=== PATIENT | female | born 1955 | race Caucasian/White ===

== ENCOUNTER → 2017-10-15 | Outpatient (CLI) | payer BC | END | disposition home or self-care (01) | LOC: KCIC US 14:21 | DX: I73.9 Peripheral vascular disease, unspecified (principal); I10 Essential (primary) hypertension; I77.1 Stricture of artery | CPT/HCPCS: 93926 ==

== ENCOUNTER → 2017-11-05 | Outpatient (CLI) | payer BC ==
[2017-11-05] MEDS: REGADENOSON 0.4 MG/5 ML DISP.SYRIN. IV ×2 (10:56)
== END | disposition home or self-care (01) ==
LOC: NM 09:24
DX: I08.1 Rheumatic disorders of both mitral and tricuspid valves (principal); I27.20 Pulmonary hypertension, unspecified; R06.00 Dyspnea, unspecified; I10 Essential (primary) hypertension; Z87.891 Personal history of nicotine dependence
CPT/HCPCS: 78452; 93017; 93306; 96374; 96375; 96376; A9500; J2785

== ENCOUNTER 2017-11-12 06:31 | Observation (INO) | payer BC ==
[2017-11-12 07:03] LABS: HEMATOCRIT 44.7 % (36.0-47.0); HEMOGLOBIN 15.1 g/dL (12.0-15.5); MEAN CORPUSCULAR HEMOGLOBIN 31 pg (25-35); MEAN CORPUSCULAR HGB CONC 34 g/dL (31-37); MEAN CORPUSCULAR VOLUME 91 fL (79-100); PLATELET COUNT 139 x10^3/uL (140-400); RED BLOOD COUNT 4.92 x10^6/uL (3.50-5.40); RED CELL DISTRIBUTION WIDTH 14.2 % (11.5-14.5); WHITE BLOOD COUNT 7.4 x10^3/uL (4.0-11.0)
[2017-11-12] MEDS ORDERED: IODIXANOL 320 MG/ML 100 ML VIAL. (07:10)
[2017-11-12] MEDS ORDERED: LIDOCAINE 2% 20 ML VIAL. (07:10)
[2017-11-12 07:17] LABS: INR 1.2 (0.8-1.1); PROTHROMBIN TIME PATIENT 14.4 SEC (11.7-14.0)
[2017-11-12 07:22] LABS: ANION GAP 6 (6-14); BLOOD UREA NITROGEN 15 mg/dL (7-20); CALCIUM 9.4 mg/dL (8.5-10.1); CARBON DIOXIDE 34 mmol/L (21-32); CHLORIDE 99 mmol/L (98-107); CREATININE 0.9 mg/dL (0.6-1.0); GFR 63.7; GLUCOSE 107 mg/dL (70-99); POTASSIUM 4.1 mmol/L (3.5-5.1); SODIUM 139 mmol/L (136-145)
[2017-11-12] MEDS ORDERED: fentaNYL PF VIAL 100 MCG/2 ML VIAL ×2 (08:04→09:15)
[2017-11-12] MEDS ORDERED: MIDAZOLAM HCL/PF 2 MG/2 ML VIAL. ×2 (08:04→09:15)
[2017-11-12] MEDS: IODIXANOL 320 MG/ML 100 ML VIAL. IART (08:30)
[2017-11-12] MEDS: MIDAZOLAM HCL/PF 5 MG/5 ML VIAL. IV (08:30)
[2017-11-12] MEDS ORDERED: CONTRAST GIVEN MC (08:30)
[2017-11-12] MEDS ORDERED: HEPARIN for IV BOLUS 10,000 UNIT/10 ML VIAL. ×2 (08:45→08:48)
[2017-11-12] MEDS ORDERED: dilTIAZem IV PUSH 25 MG/5 ML VIAL (08:48)
[2017-11-12] MEDS ORDERED: NITROGLYCERIN 4 MG/20 ML SYRINGE for CATH LAB. ×2 (08:48→09:00)
[2017-11-12] MEDS ORDERED: HEPARIN 25,000UTS/500ML PREMIX 500 ML IV (10:15)
[2017-11-12] MEDS ORDERED: NITROGLYCERIN PREMIX 250 ML IV (10:15)
[2017-11-12] MEDS ORDERED: NITROGLYCERIN 200 MCG/2 ML SYRINGE FOR CATH/VASC LAB. (10:28)
[2017-11-12] MEDS: LIDOCAINE 2% 20 ML VIAL. IJ (10:36)
[2017-11-12] MEDS: fentaNYL PF VIAL 100 MCG/2 ML VIAL IV (10:37)
[2017-11-12] MEDS: NITROGLYCERIN 200 MCG/2 ML SYRINGE FOR CATH/VASC LAB. IART (10:38)
[2017-11-12] MEDS: HEPARIN for IV BOLUS 10,000 UNIT/10 ML VIAL. IV (10:39)
[2017-11-12] MEDS: NITROGLYCERIN PREMIX 250 ML IV (10:45)
[2017-11-12] MEDS: HEPARIN 25,000UTS/500ML PREMIX 500 ML IV (10:46)
[2017-11-12] MEDS ORDERED: NITROGLYCERIN SUBLINGUAL 0.4 MG BOTTLE OF 25. SL (11:15)
[2017-11-12] MEDS ORDERED: ACETAMINOPHEN 325 MG TABLET. PO (11:15)
[2017-11-12] MEDS: oxyCODONE ER 10 MG TAB.ER.12H PO ×2 (12:00→20:55)
[2017-11-12] MEDS: FUROSEMIDE 40 MG TABLET. PO (12:00)
[2017-11-12] MEDS: SPIRONOLACTONE 25 MG TABLET PO (12:00)
[2017-11-12] MEDS: oxyCODONE/APAP 5/325 1 TAB TABLET PO ×2 (12:05→17:10)
[2017-11-12] MEDS: IV 1/2 NORMAL SALINE 1,000 ML IV ×2 (12:05→22:40)
[2017-11-12] MEDS ORDERED: oxyCODONE/APAP 10/325 1 TAB TABLET PO (14:00)
[2017-11-12] MEDS: NICOTINE 14MG PATCH. TD (19:55)
[2017-11-12] MEDS: FLU VACC QS2017-18 (36MOS+)/PF 0.5 ML SYRINGE. VAX IM (20:58)
[2017-11-13 06:48] LABS: ANION GAP 9 (6-14); BLOOD UREA NITROGEN 12 mg/dL (7-20); CALCIUM 8.2 mg/dL (8.5-10.1); CARBON DIOXIDE 27 mmol/L (21-32); CHLORIDE 104 mmol/L (98-107); CREATININE 0.8 mg/dL (0.6-1.0); GFR 72.9; GLUCOSE 105 mg/dL (70-99); SODIUM 140 mmol/L (136-145)
[2017-11-13] MEDS: IV 1/2 NORMAL SALINE 1,000 ML IV (07:06)
[2017-11-13] MEDS: SPIRONOLACTONE 25 MG TABLET PO (08:45)
[2017-11-13] MEDS: FUROSEMIDE 40 MG TABLET. PO (08:45)
[2017-11-13] MEDS: oxyCODONE ER 10 MG TAB.ER.12H PO (08:47)
[2017-11-13] MEDS: NICOTINE 14MG PATCH. TD (10:29)
[2017-11-13] MEDS: CLOPIDOGREL BISULFATE 75 MG TABLET PO (11:40)
[2017-11-13 16:07] LABS: CHOLESTEROL 107 mg/dL (0-200); HDLC 44 mg/dL (40-60); LDLC 53 mg/dL (0-100); NON-HDL CHOLESTEROL 63 mg/dL (0-129); TRIGLYCERIDES 50 mg/dL (0-150); VLDLC 10 mg/dL (0-40)
[2017-11-13 16:10] LABS: CHOLESTEROL/HDL RATIO 2.4
== END 2017-11-13 12:00 | disposition home or self-care (01) ==
LOC: CCL 06:31 → 2 NORTH 09:53
DX: I73.9 Peripheral vascular disease, unspecified (principal); K74.60 Unspecified cirrhosis of liver; I10 Essential (primary) hypertension; Z91.041 Radiographic dye allergy status
CPT/HCPCS: 36415; 37225; 37228; 75630; 80048; 80061; 85027; 85610; 90471; 90686; 96365; 96366; 96367; 96368; 96375; 99152; 99153; C1724; C1725; C1769; C1771; C1887; C1892; C2623; G0269; G0378; G0379; J1644; J2250; J3010; J3490; J7030

== ENCOUNTER 2017-11-20 23:17 | Inpatient (IN) | payer BC, MEDICARE ==
[2017-11-20 23:59] LABS: ADD MAN DIFF? NO
[2017-11-21 00:03] LABS: BILIRUBIN,URINE NEGATIVE (NEG); CLARITY,URINE CLOUDY; COLOR,URINE YELLOW; GLUCOSE,URINE NEGATIVE (NEG); NITRITE,URINE POSITIVE (NEG); PH,URINE 6.5; PROTEIN,URINE NEGATIVE (NEG-TRACE)
[2017-11-21 00:05] LABS: BASO % 0 % (0-3); EOS # 0.1 x10^3/uL (0.0-0.7); EOS % 1 % (0-3); HEMATOCRIT 36.9 % (36.0-47.0); HEMOGLOBIN 12.8 g/dL (12.0-15.5); LYMPH # 1.2 x10^3/uL (1.0-4.8); LYMPH % 18 % (24-48); MEAN CORPUSCULAR HEMOGLOBIN 31 pg (25-35); MEAN CORPUSCULAR HGB CONC 35 g/dL (31-37); MEAN CORPUSCULAR VOLUME 89 fL (79-100); MONO # 0.7 x10^3/uL (0.0-1.1); MONO % 10 % (0-9); NEUT # 4.5 x10^3uL (1.8-7.7); NEUT % 70 % (31-73); PLATELET COUNT 131 x10^3/uL (140-400); RED BLOOD COUNT 4.17 x10^6/uL (3.50-5.40); WHITE BLOOD COUNT 6.4 x10^3/uL (4.0-11.0)
[2017-11-21 00:13] LABS: ANION GAP 9 (6-14); BLOOD UREA NITROGEN 13 mg/dL (7-20); BUN/CREATININE RATIO 12 (6-20); CALCIUM 8.7 mg/dL (8.5-10.1); CARBON DIOXIDE 28 mmol/L (21-32); CHLORIDE 101 mmol/L (98-107); CREATININE 1.1 mg/dL (0.6-1.0); GFR 50.5; GLUCOSE 111 mg/dL (70-99); POTASSIUM 3.3 mmol/L (3.5-5.1); SODIUM 138 mmol/L (136-145)
[2017-11-21 00:15] LABS: BACTERIA,URINE MANY /HPF (0-FEW); SQUAMOUS EPITHELIAL CELL,UR OCC /LPF; WBC,URINE TNTC /HPF (0-4)
[2017-11-21 00:19] LABS: ALBUMIN 3.1 g/dL (3.4-5.0); ALBUMIN/GLOBULIN RATIO 0.6 (1.0-1.7); ALK PHOS 57 U/L (46-116); ALT (SGPT) 14 U/L (14-59); AST (SGOT) 23 U/L (15-37); TOTAL BILIRUBIN 1.7 mg/dL (0.2-1.0); TOTAL PROTEIN 8.2 g/dL (6.4-8.2)
[2017-11-21 00:22] LABS: TROPONINI < 0.017 ng/mL (0.000-0.055)
[2017-11-21 00:24] LABS: D-DIMER 1.98 ug/mlFEU (0.00-0.50)
[2017-11-21 00:28] LABS: NT-PRO BNP 427 pg/mL (0-124)
[2017-11-21 00:28] LABS: CKMB MASS 0.5 ng/mL (0.0-3.6); CREATINE KINASE 37 U/L (26-192)
[2017-11-21] MEDS: IV NORMAL SALINE 1000ML BAG 1,000 ML IV ×4 (00:35→20:38)
[2017-11-21] MEDS: methylPREDNISolone SOD SUCC PF 125 MG/2 ML VIAL. IV ×3 (00:36→20:37)
[2017-11-21] MEDS: cefTRIAXone IV Push 1 GM VIAL. IVP (00:48)
[2017-11-21 00:53] LABS: INFLUENZA A PATIENT NEGATIVE (NEGATIVE); INFLUENZA B PATIENT NEGATIVE (NEGATIVE); OBC FLU VALID
[2017-11-21] MEDS: IOHEXOL 300 MG/ML 100ML VIAL. IV (01:00)
[2017-11-21] MEDS ORDERED: CONTRAST GIVEN MC (01:00)
[2017-11-21] MEDS ORDERED: ONDANSETRON PF 4 MG/2 ML VIAL. IV (02:15)
[2017-11-21] MEDS: NICOTINE 21MG PATCH. TD (05:31)
[2017-11-21] MEDS: AZITHRMYCN 500MG IVPB FOR OMNI 250 ML IV (05:32)
[2017-11-21] MEDS: methylPREDNISolone SOD SUCC PF 40 MG/ML VIAL. IV (05:33)
[2017-11-21] MEDS: IPRATRPIUM/ALBUTEROL 0.5/2.5MG 3 ML NEBU. NEB ×6 (07:48→19:40)
[2017-11-21] MEDS: ACETAMINOPHEN 325 MG TABLET. PO (08:06)
[2017-11-21] MEDS: LACTOBACILLUS RHAMNOSUS GG 1 CAPSULE. PO ×2 (08:06→20:36)
[2017-11-21] MEDS: PNEUMOC CONJ VACC 23-VALENT 0.5 ML VIAL. VAX IM (08:09)
[2017-11-21] MEDS ORDERED: PNEUMOCOCCAL VAX SCREEN BY RX. MC (09:00)
[2017-11-21] MEDS ORDERED: ONDANSETRON ODT 4 MG TAB.RAPDIS. PO (10:00)
[2017-11-21] MEDS ORDERED: PIP/TAZO PER PHARMACY MC (10:30)
[2017-11-21] MEDS: FUROSEMIDE 40 MG TABLET. PO (10:41)
[2017-11-21] MEDS: oxyCODONE ER 10 MG TAB.ER.12H PO ×2 (10:41→20:36)
[2017-11-21] MEDS: ENOXAPARIN 40 MG/0.4 ML SYRINGE. SQ (10:42)
[2017-11-21] MEDS: CLOPIDOGREL BISULFATE 75 MG TABLET PO (10:42)
[2017-11-21] MEDS: METOPROLOL TART IMMED RELEASE 50 MG TABLET. PO ×2 (10:43→20:36)
[2017-11-21] MEDS: oxyCODONE/APAP 10/325 1 TAB TABLET PO ×3 (10:43→20:36)
[2017-11-21] MEDS: SPIRONOLACTONE 25 MG TABLET PO (10:43)
[2017-11-21] MEDS: VANCOMYCIN 1.75 GM in IV DEXTROSE 5% 500 ML IV (11:42)
[2017-11-21] MEDS: PIPERACILLN-TAZO 4.5GM PREMIX 100 ML IV ×2 (11:42→17:01)
[2017-11-21] MEDS: BUDESONIDE 0.5 MG/2 ML NEBU. NEB ×2 (12:03→19:40)
[2017-11-21] MEDS: VANCOMYCIN PER PHARMACY MC (14:41)
[2017-11-21] MEDS: ZOLPIDEM 5 MG TABLET. PO (20:35)
[2017-11-21] MEDS: LACTULOSE 20 GM/30 ML SOLUTION. PO (20:37)
[2017-11-21] MEDS ORDERED: cefTRIAXone IV Push 1 GM VIAL. IVP (23:00)
[2017-11-22] MEDS: PIPERACILLN-TAZO 4.5GM PREMIX 100 ML IV ×4 (00:09→18:23)
[2017-11-22 04:58] LABS: ADD MAN DIFF? NO
[2017-11-22 05:00] LABS: BASO % 0 % (0-3); EOS % 0 % (0-3); HEMATOCRIT 30.6 % (36.0-47.0); HEMOGLOBIN 10.6 g/dL (12.0-15.5); LYMPH # 0.4 x10^3/uL (1.0-4.8); LYMPH % 11 % (24-48); MEAN CORPUSCULAR HEMOGLOBIN 31 pg (25-35); MEAN CORPUSCULAR HGB CONC 35 g/dL (31-37); MEAN CORPUSCULAR VOLUME 88 fL (79-100); MONO # 0.2 x10^3/uL (0.0-1.1); MONO % 5 % (0-9); NEUT # 3.2 x10^3uL (1.8-7.7); NEUT % 84 % (31-73); PLATELET COUNT 86 x10^3/uL (140-400); RED BLOOD COUNT 3.48 x10^6/uL (3.50-5.40); RED CELL DISTRIBUTION WIDTH 14.2 % (11.5-14.5); WHITE BLOOD COUNT 3.8 x10^3/uL (4.0-11.0)
[2017-11-22] MEDS ORDERED: AZITHROMYCIN 500 MG in IV NORMAL SALINE 250ML 250 ML IV (05:00)
[2017-11-22 05:18] LABS: ANION GAP 10 (6-14); BLOOD UREA NITROGEN 13 mg/dL (7-20); CALCIUM 8.2 mg/dL (8.5-10.1); CARBON DIOXIDE 24 mmol/L (21-32); CHLORIDE 108 mmol/L (98-107); GFR 56.4; GLUCOSE 145 mg/dL (70-99); SODIUM 142 mmol/L (136-145)
[2017-11-22] MEDS: VANCOMYCIN 1 GM in IV 1/2 NORMAL SALINE 250 ML IV (05:40)
[2017-11-22] MEDS: IPRATRPIUM/ALBUTEROL 0.5/2.5MG 3 ML NEBU. NEB ×4 (07:18→20:24)
[2017-11-22] MEDS: BUDESONIDE 0.5 MG/2 ML NEBU. NEB ×2 (07:18→20:24)
[2017-11-22] MEDS: methylPREDNISolone SOD SUCC PF 125 MG/2 ML VIAL. IV (08:52)
[2017-11-22] MEDS: oxyCODONE ER 10 MG TAB.ER.12H PO ×2 (08:53→20:42)
[2017-11-22] MEDS: METOPROLOL TART IMMED RELEASE 50 MG TABLET. PO ×2 (08:53→20:45)
[2017-11-22] MEDS: oxyCODONE/APAP 10/325 1 TAB TABLET PO ×3 (08:53→20:42)
[2017-11-22] MEDS: CLOPIDOGREL BISULFATE 75 MG TABLET PO (08:53)
[2017-11-22] MEDS: FUROSEMIDE 40 MG TABLET. PO (08:54)
[2017-11-22] MEDS: SPIRONOLACTONE 25 MG TABLET PO (08:54)
[2017-11-22] MEDS: LACTOBACILLUS RHAMNOSUS GG 1 CAPSULE. PO ×2 (08:54→20:41)
[2017-11-22] MEDS: ENOXAPARIN 40 MG/0.4 ML SYRINGE. SQ (08:54)
[2017-11-22] MEDS: NICOTINE 21MG PATCH. TD (08:54)
[2017-11-22] MEDS ORDERED: AZITHROMYCIN 250 MG TABLET. PO (09:00)
[2017-11-22] MEDS: POTASSIUM CHLORIDE 20 MEQ TABLET.ER. PO (13:17)
[2017-11-22] MEDS: VANCOMYCIN PER PHARMACY MC (13:31)
[2017-11-22] MEDS: methylPREDNISolone SOD SUCC PF 40 MG/ML VIAL. IV (20:41)
[2017-11-22] MEDS: ZOLPIDEM 5 MG TABLET. PO (20:57)
[2017-11-22] MEDS: LACTULOSE 20 GM/30 ML SOLUTION. PO (20:58)
[2017-11-23] MEDS: PIPERACILLN-TAZO 4.5GM PREMIX 100 ML IV ×3 (00:03→06:36)
[2017-11-23] MEDS: VANCOMYCIN PER PHARMACY MC (00:38)
[2017-11-23] MEDS: VANCOMYCIN 1 GM in IV 1/2 NORMAL SALINE 250 ML IV (01:20)
[2017-11-23 04:55] LABS: ADD MAN DIFF? NO
[2017-11-23 05:01] LABS: BASO % 0 % (0-3); EOS % 0 % (0-3); HEMATOCRIT 31.9 % (36.0-47.0); HEMOGLOBIN 10.9 g/dL (12.0-15.5); LYMPH # 0.5 x10^3/uL (1.0-4.8); LYMPH % 12 % (24-48); MEAN CORPUSCULAR HEMOGLOBIN 31 pg (25-35); MEAN CORPUSCULAR HGB CONC 34 g/dL (31-37); MEAN CORPUSCULAR VOLUME 89 fL (79-100); MONO # 0.2 x10^3/uL (0.0-1.1); MONO % 5 % (0-9); NEUT # 3.1 x10^3uL (1.8-7.7); NEUT % 82 % (31-73); PLATELET COUNT 91 x10^3/uL (140-400); RED BLOOD COUNT 3.58 x10^6/uL (3.50-5.40); WHITE BLOOD COUNT 3.7 x10^3/uL (4.0-11.0)
[2017-11-23 05:40] LABS: ALBUMIN 2.6 g/dL (3.4-5.0); ALBUMIN/GLOBULIN RATIO 0.6 (1.0-1.7); ALK PHOS 41 U/L (46-116); ALT (SGPT) 14 U/L (14-59); ANION GAP 9 (6-14); AST (SGOT) 18 U/L (15-37); BLOOD UREA NITROGEN 15 mg/dL (7-20); BUN/CREATININE RATIO 14 (6-20); CALCIUM 8.3 mg/dL (8.5-10.1); CARBON DIOXIDE 24 mmol/L (21-32); CHLORIDE 107 mmol/L (98-107); CREATININE 1.1 mg/dL (0.6-1.0); GFR 50.5; GLUCOSE 126 mg/dL (70-99); POTASSIUM 3.3 mmol/L (3.5-5.1); SODIUM 140 mmol/L (136-145); TOTAL BILIRUBIN 0.8 mg/dL (0.2-1.0); TOTAL PROTEIN 6.8 g/dL (6.4-8.2)
[2017-11-23] MEDS: BUDESONIDE 0.5 MG/2 ML NEBU. NEB ×3 (07:48→19:22)
[2017-11-23] MEDS: IPRATRPIUM/ALBUTEROL 0.5/2.5MG 3 ML NEBU. NEB ×5 (07:49→19:22)
[2017-11-23] MEDS: NICOTINE 21MG PATCH. TD (08:55)
[2017-11-23] MEDS: LACTOBACILLUS RHAMNOSUS GG 1 CAPSULE. PO ×2 (08:55→20:32)
[2017-11-23] MEDS: oxyCODONE ER 10 MG TAB.ER.12H PO ×2 (08:56→20:32)
[2017-11-23] MEDS: ENOXAPARIN 40 MG/0.4 ML SYRINGE. SQ (08:56)
[2017-11-23] MEDS: SPIRONOLACTONE 25 MG TABLET PO (08:57)
[2017-11-23] MEDS: methylPREDNISolone SOD SUCC PF 40 MG/ML VIAL. IV (08:57)
[2017-11-23] MEDS: CLOPIDOGREL BISULFATE 75 MG TABLET PO (08:57)
[2017-11-23] MEDS: oxyCODONE/APAP 10/325 1 TAB TABLET PO ×3 (08:57→20:32)
[2017-11-23] MEDS: METOPROLOL TART IMMED RELEASE 50 MG TABLET. PO ×2 (08:57→20:32)
[2017-11-23] MEDS: FUROSEMIDE 40 MG TABLET. PO (08:57)
[2017-11-23] MEDS: POTASSIUM CHLORIDE 20 MEQ TABLET.ER. PO ×2 (08:58→12:06)
[2017-11-23] MEDS: AMOXICILLIN/K CLAV 875/125MG TABLET. PO ×2 (12:06→20:32)
[2017-11-23] MEDS: predniSONE 20 MG TABLET PO (12:06)
[2017-11-23] MEDS: LACTULOSE 20 GM/30 ML SOLUTION. PO (20:32)
[2017-11-23] MEDS: ZOLPIDEM 5 MG TABLET. PO (20:37)
[2017-11-24] MEDS: BUDESONIDE 0.5 MG/2 ML NEBU. NEB (07:25)
[2017-11-24] MEDS: IPRATRPIUM/ALBUTEROL 0.5/2.5MG 3 ML NEBU. NEB (07:25)
[2017-11-24] MEDS: NICOTINE 21MG PATCH. TD (08:52)
[2017-11-24] MEDS: LACTOBACILLUS RHAMNOSUS GG 1 CAPSULE. PO (08:52)
[2017-11-24] MEDS: SPIRONOLACTONE 25 MG TABLET PO (08:52)
[2017-11-24] MEDS: METOPROLOL TART IMMED RELEASE 50 MG TABLET. PO (08:53)
[2017-11-24] MEDS: AMOXICILLIN/K CLAV 875/125MG TABLET. PO (08:53)
[2017-11-24] MEDS: predniSONE 20 MG TABLET PO (08:53)
[2017-11-24] MEDS: POTASSIUM CHLORIDE 20 MEQ TABLET.ER. PO (08:53)
[2017-11-24] MEDS: FUROSEMIDE 40 MG TABLET. PO (08:54)
[2017-11-24] MEDS: CLOPIDOGREL BISULFATE 75 MG TABLET PO (08:54)
[2017-11-24] MEDS: oxyCODONE ER 10 MG TAB.ER.12H PO (08:54)
[2017-11-24] MEDS: oxyCODONE/APAP 10/325 1 TAB TABLET PO (08:54)
[2017-11-24] MEDS: ENOXAPARIN 40 MG/0.4 ML SYRINGE. SQ (09:01)
== END 2017-11-24 11:00 | disposition home or self-care (01) | DRG 193 ==
LOC: ER 23:17 → 5 NORTH 11-21 01:55
DX: J18.9 Pneumonia, unspecified organism (principal); J96.01 Acute respiratory failure with hypoxia; J44.0 Chronic obstructive pulmonary disease with (acute) lower respiratory infection; E44.1 Mild protein-calorie malnutrition; K76.6 Portal hypertension; J44.1 Chronic obstructive pulmonary disease with (acute) exacerbation; N39.0 Urinary tract infection, site not specified; J20.9 Acute bronchitis, unspecified; F17.210 Nicotine dependence, cigarettes, uncomplicated; I10 Essential (primary) hypertension; I73.9 Peripheral vascular disease, unspecified; K21.9 Gastro-esophageal reflux disease without esophagitis; K74.60 Unspecified cirrhosis of liver; Z82.49 Family history of ischemic heart disease and other diseases of the circulatory system; Z90.49 Acquired absence of other specified parts of digestive tract; G89.29 Other chronic pain; M19.90 Unspecified osteoarthritis, unspecified site; Z98.51 Tubal ligation status; Z88.6 Allergy status to analgesic agent
CPT/HCPCS: 36415; 71045; 71275; 80048; 80053; 80202; 81001; 82553; 83735; 83880; 84484; 85025; 85379; 87086; 87186; 87804; 87804-59; 90732; 93005; 94640; 94760; 96361; 96374; 96375; 99285; 99285-25; J0456; J0696; J1650; J2920; J2930; J3370; J7030; J7512; J7620; J7626; Q9967

== ENCOUNTER → 2018-01-07 | Outpatient (CLI) | payer BC, MEDICARE | END | disposition home or self-care (01) | LOC: CT 14:59 | DX: J43.9 Emphysema, unspecified (principal); R91.1 Solitary pulmonary nodule; K76.6 Portal hypertension; K74.69 Other cirrhosis of liver; R16.1 Splenomegaly, not elsewhere classified | CPT/HCPCS: 71250 ==

== ENCOUNTER → 2018-01-14 | Day surgery (SDC) | payer BC, MEDICARE ==
[~2018-01-14] MED LIST: EPINEPHrine 1 MG/ML VIAL ET; LIDOCAINE 1% PF 2 ML VIAL. ID; MIDAZOLAM HCL/PF 2 MG/2 ML VIAL. IV; PROPOFOL 20 ML IV; fentaNYL PF VIAL 100 MCG/2 ML VIAL IV
[2018-01-14 12:37] LABS: HEMOGLOBIN 14.1 g/dL (12.0-15.5); PLATELET COUNT 106 x10^3/uL (140-400); WHITE BLOOD COUNT 6.1 x10^3/uL (4.0-11.0)
[2018-01-14] MEDS: ALBUTEROL SULFATE 2.5 MG/3 ML NEBU. NEB (12:38)
[2018-01-14] MEDS: IV RINGERS,LACTATED 1000ML 1,000 ML IV (12:40)
[2018-01-14 12:47] LABS: INR 1.2 (0.8-1.1); PROTHROMBIN TIME PATIENT 14.8 SEC (11.7-14.0)
== END | disposition home or self-care (01) ==
LOC: SURG 11:52
DX: J18.9 Pneumonia, unspecified organism (principal); Z79.01 Long term (current) use of anticoagulants
CPT/HCPCS: 31622; 31624; 36415; 85027; 85610; 87070; 87102; 87205; 88112; 94640; J0171; J2704; J7613

== ENCOUNTER 2018-04-09 10:33 | Observation (INO) | payer BC, MEDICARE ==
[~2018-04-09 10:33] MED LIST changes: -EPINEPHrine 1 MG/ML VIAL ET; -MIDAZOLAM HCL/PF 2 MG/2 ML VIAL. IV; +ONDANSETRON PF 4 MG/2 ML VIAL. IV; +PROCHLORPERAZINE 10 MG/2 ML VIAL. IV; -PROPOFOL 20 ML IV; -fentaNYL PF VIAL 100 MCG/2 ML VIAL IV
[2018-04-09] MEDS ORDERED: LIDOCAINE 2% PF Vial for OR 5 ML VIAL. (11:12)
[2018-04-09] MEDS ORDERED: FAMOTIDINE 20 MG/2 ML VIAL (11:12)
[2018-04-09] MEDS ORDERED: DEXAMETHASONE SOD PHOS 20 MG/5 ML VIAL. (11:12)
[2018-04-09] MEDS ORDERED: ONDANSETRON PF 4 MG/2 ML VIAL. (11:12)
[2018-04-09] MEDS ORDERED: PROPOFOL 20 ML IV (11:12)
[2018-04-09] MEDS: IV RINGERS,LACTATED 1000ML 1,000 ML IV (11:29)
[2018-04-09] MEDS ORDERED: MIDAZOLAM HCL/PF 2 MG/2 ML VIAL. ×2 (11:43→14:48)
[2018-04-09] MEDS ORDERED: ROCURONIUM 50 MG/5 ML VIAL. (11:43)
[2018-04-09] MEDS ORDERED: fentaNYL PF VIAL 100 MCG/2 ML VIAL (11:43)
[2018-04-09] MEDS: BUPIVACAINE-EPI 0.25%-1:200000 50 ML VIAL. (12:26)
[2018-04-09] MEDS ORDERED: NEOSTIGMINE METHYLSULFATE 5 MG/5 ML SYRINGE. (12:34)
[2018-04-09] MEDS ORDERED: GLYCOPYRROLATE 1 MG/5 ML VIAL. (12:34)
[2018-04-09] MEDS ORDERED: SEVOFLURANE > 120 MINUTES. IH (13:27)
[2018-04-09] MEDS ORDERED: SEVOFLURANE 61 TO 120 MINUTES. IH (13:27)
[2018-04-09] MEDS: fentaNYL PF VIAL 100 MCG/2 ML VIAL IV ×6 (13:52→14:35)
[2018-04-09] MEDS: IPRATRPIUM/ALBUTEROL 0.5/2.5MG 3 ML NEBU. NEB (14:13)
[2018-04-09] MEDS: MORPHINE SULFATE 2 MG/ML DISP.SYRIN. IV ×8 (14:41→21:23)
[2018-04-09] MEDS: MIDAZOLAM HCL/PF 2 MG/2 ML VIAL. IV (14:51)
[2018-04-09] MEDS ORDERED: oxyCODONE/APAP 5/325 1 TAB TABLET PO (15:30)
[2018-04-09] MEDS: oxyCODONE/APAP 5/325 1 TAB TABLET PO ×2 (15:43→20:30)
[2018-04-09] MEDS: NICOTINE 21MG PATCH. TD (20:29)
[2018-04-10] MEDS: oxyCODONE/APAP 5/325 1 TAB TABLET PO ×3 (01:36→10:14)
[2018-04-10] MEDS: MORPHINE SULFATE 2 MG/ML DISP.SYRIN. IV (03:09)
== END 2018-04-10 10:30 | disposition home or self-care (01) ==
LOC: SURG 10:33 → 4 NORTH 17:06
DX: K43.2 Incisional hernia without obstruction or gangrene (principal)
CPT/HCPCS: 49655; 96374; 96376; A7015; C1781; G0378; G0379; J0690; J1100; J2001; J2250; J2270; J2405; J2704; J2710; J3010; J3490; J7620; S0028

== ENCOUNTER 2018-04-11 23:39 | Emergency (ER) | payer BC, MEDICARE ==
[2018-04-12] MEDS: MORPHINE SULFATE 4 MG/ML DISP.SYRIN. IV (00:56)
[2018-04-12] MEDS: ONDANSETRON PF 4 MG/2 ML VIAL. IV (00:56)
[2018-04-12 01:25] LABS: ADD MAN DIFF? NO
[2018-04-12 01:29] LABS: BASO % 1 % (0-3); EOS # 0.2 x10^3/uL (0.0-0.7); EOS % 2 % (0-3); HEMATOCRIT 43.5 % (36.0-47.0); HEMOGLOBIN 15.1 g/dL (12.0-15.5); LYMPH # 1.5 x10^3/uL (1.0-4.8); LYMPH % 16 % (24-48); MEAN CORPUSCULAR HEMOGLOBIN 30 pg (25-35); MEAN CORPUSCULAR HGB CONC 35 g/dL (31-37); MEAN CORPUSCULAR VOLUME 88 fL (79-100); MONO % 10 % (0-9); NEUT # 6.9 x10^3uL (1.8-7.7); NEUT % 71 % (31-73); PLATELET COUNT 123 x10^3/uL (140-400); RED BLOOD COUNT 4.97 x10^6/uL (3.50-5.40); RED CELL DISTRIBUTION WIDTH 15.1 % (11.5-14.5); WHITE BLOOD COUNT 9.6 x10^3/uL (4.0-11.0)
[2018-04-12 01:39] LABS: ANION GAP 10 (6-14); BLOOD UREA NITROGEN 19 mg/dL (7-20); BUN/CREATININE RATIO 17 (6-20); CALCIUM 8.8 mg/dL (8.5-10.1); CARBON DIOXIDE 26 mmol/L (21-32); CHLORIDE 95 mmol/L (98-107); CREATININE 1.1 mg/dL (0.6-1.0); GFR 50.5; GLUCOSE 99 mg/dL (70-99); POTASSIUM 3.7 mmol/L (3.5-5.1); SODIUM 131 mmol/L (136-145)
[2018-04-12 01:45] LABS: ALBUMIN 3.5 g/dL (3.4-5.0); ALBUMIN/GLOBULIN RATIO 0.9 (1.0-1.7); ALK PHOS 84 U/L (46-116); ALT (SGPT) 14 U/L (14-59); AST (SGOT) 20 U/L (15-37); TOTAL BILIRUBIN 1.8 mg/dL (0.2-1.0); TOTAL PROTEIN 7.3 g/dL (6.4-8.2)
== END 2018-04-12 02:40 | disposition home or self-care (01) ==
LOC: ER 23:39
DX: M79.605 Pain in left leg (principal); I10 Essential (primary) hypertension; Z86.718 Personal history of other venous thrombosis and embolism; Z98.51 Tubal ligation status; Z90.49 Acquired absence of other specified parts of digestive tract; Z88.1 Allergy status to other antibiotic agents; Z88.6 Allergy status to analgesic agent; Z88.8 Allergy status to other drugs, medicaments and biological substances
CPT/HCPCS: 36415; 80053; 85025; 93971; 96374; 96375; 99285-25; J2270; J2405

== ENCOUNTER 2018-06-10 06:23 | Observation (INO) | payer BC ==
[~2018-06-10] VITALS: Ht 172.7 cm; Wt 57.7 kg
[2018-06-10] VITALS (15 sets, daily range): BP systolic 114–166; BP diastolic 52–82
[~2018-06-10 06:23] MED LIST changes: +AMOX1TAB11 PO; +CHOL20009 PO; +CLOP75TA PO; +FLUT12AE IH; +FURO40TA4 PO; +IPRA4AER IH; +LACT10SO35 PO; -LIDOCAINE 1% PF 2 ML VIAL. ID; +NADO40TA PO; +OMEP40CA5 PO; +ONDA8TAB9 PO; -ONDANSETRON PF 4 MG/2 ML VIAL. IV; +OXYC-328 PO; +OXYC20TA34 PO; +PRED-220 PO; -PROCHLORPERAZINE 10 MG/2 ML VIAL. IV; +SPIR25TA5 PO; +TRAM50TA PO
[2018-06-10] MEDS ORDERED: IODIXANOL 320 MG/ML 100 ML VIAL. ONE (07:10)
[2018-06-10] MEDS ORDERED: LIDOCAINE 1% PF 30 ML VIAL. ONE (07:10)
[2018-06-10 07:14] LABS: HEMATOCRIT 39.2 % (36.0-47.0); HEMOGLOBIN 13.5 g/dL (12.0-15.5); RED BLOOD COUNT 4.34 x10^6/uL (3.50-5.40); RED CELL DISTRIBUTION WIDTH 14.8 % (11.5-14.5); WHITE BLOOD COUNT 6.2 x10^3/uL (4.0-11.0)
[2018-06-10] MEDS ORDERED: SPIR25TA5 PO (07:17)
[2018-06-10] MEDS ORDERED: PENT400T4 PO (07:17)
[2018-06-10 07:24] LABS: CALCIUM 9.4 mg/dL (8.5-10.1); CREATININE 0.9 mg/dL (0.6-1.0); GFR 63.7; POTASSIUM 3.6 mmol/L (3.5-5.1)
[2018-06-10] MEDS ORDERED: MIDAZOLAM HCL/PF 5 MG/5 ML VIAL. ONE (07:55)
[2018-06-10] MEDS ORDERED: fentaNYL PF VIAL 250 MCG/5 ML VIAL ONE (07:55)
[2018-06-10] MEDS ORDERED: HEPARIN for IV BOLUS 10,000 UNIT/10 ML VIAL. ONE (08:16)
[2018-06-10] MEDS ORDERED: fentaNYL PF VIAL 250 MCG/5 ML VIAL IV ONE (08:30)
[2018-06-10] MEDS ORDERED: HEPARIN for IV BOLUS 10,000 UNIT/10 ML VIAL. IV ONE (08:30)
[2018-06-10] MEDS ORDERED: LIDOCAINE 1% PF 30 ML VIAL. INJ ONE (08:30)
[2018-06-10] MEDS ORDERED: MIDAZOLAM HCL/PF 5 MG/5 ML VIAL. IV ONE (08:30)
[2018-06-10] MEDS ORDERED: CONTRAST GIVEN. MC PRN (08:30)
[2018-06-10] MEDS ORDERED: IODIXANOL 320 MG/ML 100 ML VIAL. IART ONE (08:30)
[2018-06-10] MEDS ORDERED: NITROGLYCERIN 200 MCG/2 ML SYRINGE FOR CATH/VASC LAB. IART ONE (09:15)
[2018-06-10] MEDS ORDERED: CLOPIDOGREL BISULFATE 75 MG TABLET ONE (09:24)
[2018-06-10] MEDS ORDERED: NITROGLYCERIN 200 MCG/2 ML SYRINGE FOR CATH/VASC LAB. ONE ×3 (09:24→15:43)
[2018-06-10] MEDS ORDERED: CLOPIDOGREL BISULFATE 75 MG TABLET PO ONE (09:30)
[2018-06-10] MEDS ORDERED: VERAPAMIL 5 MG/2 ML VIAL. ONE (10:35)
[2018-06-10] MEDS ORDERED: fentaNYL PF VIAL 100 MCG/2 ML VIAL ONE (10:39)
[2018-06-10] MEDS ORDERED: MIDAZOLAM HCL/PF 2 MG/2 ML VIAL. ONE (10:43)
[2018-06-10] MEDS ORDERED: VERAPAMIL 5 MG/2 ML VIAL. IART ONE (10:45)
[2018-06-10] MEDS ORDERED: oxyCODONE/APAP 10/325 1 TAB TABLET PO PRN (10:45)
[2018-06-10] MEDS ORDERED: MIDAZOLAM HCL/PF 2 MG/2 ML VIAL. IV ONE (10:45)
[2018-06-10] MEDS ORDERED: fentaNYL PF VIAL 100 MCG/2 ML VIAL IV ONE (10:45)
[2018-06-10] MEDS ORDERED: HEPARIN 25,000UTS/500ML PREMIX 500 ML IV ONE (10:53)
[2018-06-10] MEDS ORDERED: HEPARIN 25,000UTS/500ML PREMIX 500 ML IV PRN (11:00)
[2018-06-10] MEDS ORDERED: ONDANSETRON ODT 4 MG TAB.RAPDIS. PO PRN (11:00)
[2018-06-10] MEDS ORDERED: HEPARIN for IV BOLUS 10,000 UNIT/10 ML VIAL. IV PRN (11:00)
--- NOTE | 2018-06-10 11:05 | PDOC ---
MODERATE SEDATION ASSESSMENT RISKS/ALTERNATIVES Risks/Alternatives Risks and alternatives of this type of sedation and procedure discussed with: RISK/ALTERNATIVES: Patient H & P ON CHART H & P H & P on chart and reviewed for co-morbid conditions and appropriate labs. H&P ON CHART: Yes STATUS PREG STATUS ASSESSED: N/A MEDS/ALLERGIES REVIEWED Meds/Allergies Reviewed Medications and Allergies including time and route of recently administered narcotics and sedatives. MEDS/ALLERGIES REVIEWED: Yes ASA RATING ASA RATING: II AIRWAY ASSESSMENT Airway Assessment Airway patency, oral function limitations, presence of caps, crowns, dentures, partials, and ability to extend neck assessed. AIRWAY ASSESSMENT: Yes MALLAMPATI SCORE MALLAMPATI SCORE: II PRE-SEDATION ASSESSMENT PRE-SEDATION ASSESSMENT: Yes ASHLEY ARIZA MD Jun 10, 2018 11:05
[2018-06-10] MEDS ORDERED: ACETAMINOPHEN 325 MG TABLET. PO PRN (11:15)
[2018-06-10] MEDS: IPRATRPIUM/ALBUTEROL 0.5/2.5MG 3 ML NEBU. NEB SCH ×3 (12:00→19:38)
[2018-06-10] MEDS: METOPROLOL SUCC 24HR ER 50 MG TAB.ER.24H. PO SCH ×2 (12:54→21:00)
[2018-06-10] MEDS: CHOLECALCIFEROL (VITAMIN D3) 1,000 UNIT TABLET PO SCH (12:54)
[2018-06-10] MEDS: FUROSEMIDE 40 MG TABLET. PO SCH (12:54)
[2018-06-10] MEDS: SPIRONOLACTONE 25 MG TABLET PO SCH (12:54)
[2018-06-10] MEDS: PANTOPRAZOLE 40 MG TABLET.DR. PO SCH (12:54)
[2018-06-10] MEDS: IV NORMAL SALINE 1000ML BAG 1,000 ML IV SCH ×2 (12:55→21:46)
[2018-06-10] MEDS ORDERED: NON FORMULARY ITEM (Ipratropium/Albuterol Sulfate (Combivent Respimat Inhal) 1 INH) IH SCH (13:00)
[2018-06-10] MEDS ORDERED: ENALAPRILAT 1.25 MG/ML VIAL. IVP PRN (16:15)
--- NOTE | 2018-06-10 17:19 | CARD ---
MR#: [id number] Date of Study: 06/10/2018 Ordering Physician: ASHLEY ARIZA, Referring Physician: ASHLEY ARIZA Tech: RT Kathleen (R) APPROVED REPORT Patient StatusOUT-PATIENT Liquified Natural Gas Technician: Migdalia Gomez RT (R) Procedure(s) performed: 1. Aortogram with bilateral lower extremity runoff 2. Successful MICA SIZER to the left superficial femoral (distal embolic protection using Filterwire), post erior tibial and peroneal arteries Moderate sedation: 188 minutes INDICATION FOR PROCEDURE The indication(s) include : Critical limb ischemia, peripheral artery disease. PROCEDURE NARRATIVE After explaining the risks, benefits and alternative options, informed consent was obtained from deng ent. Patient was brought to the cardiac Mattress Filler and her right groin was prepped and draped in the us ual fashion. 20 mL of 2% lidocaine was infiltrated into the skin and subcutaneous tissues for local a nesthesia. Arterial access was obtained in the right common femoral artery and 5 Samoan sheath was in serted. 5 Samoan pigtail catheter was used to perform aortogram with bilateral lower extremity runoff . The following findings were noted. FINDINGS 1. No significant stenosis involving the distal descending aorta 2. No significant stenosis involving bilateral common and external iliac arteries 3. No significant stenosis involving bilateral common femoral arteries 4. The right superficial femoral artery showed 40% stenosis in the proximal to midsegment. The left superficial femoral artery showed 100% occlusion with thrombus in the mid and distal segments with di stal reconstitution of popliteal artery via collaterals. 5. No significant stenosis involving bilateral popliteal arteries. 6. There is three vessel runoff bilaterally. The left anterior tibial artery showed moderate diffuse disease followed by chronic total occlusion in the mid to distal segment. INTERVENTION The sheath in the right groin was exchanged to a 6 Samoan 55 cm Cook sheath that was advanced over th e aortic phylicia with the help off across oval catheter and the tip was positioned in the left superfi cial femoral artery. Due to the amount of thrombus burden within the occlusion, we decided to use dis eldon protection using a filter wire. The long occlusion was then crossed with a 0.014 inch command bubba dewire that was then exchanged over a quickcross catheter to a 0.018 inch viper guidewire. A 5 mm Emb oshield Clif[place] embolic protection system was prepped, advanced under fluoroscopic guidance and was deplo yed in the distal segment of the left popliteal artery. The occlusion was then dilated with a 5.0 x 150 mm Francis [place] balloon and treated with overlapping 5.0 x 1 20 mm and 5.0 x 60 mm Francis Supera self expanding stents. Follow-up angiography showed res olution of the stenosis to 0%. However there was distal embolization resulting in occlusion in the di stal segment of the popliteal artery. A 4 Samoan angled glide catheter was used to perform aspiration thrombectomy. A filter wire was then retrieved using the retrieval catheter. Follow-up angiography s howed significant thrombus burden with occlusion of the distal segment of the popliteal artery, proxi mal segment of the left anterior tibial artery and also occlusion of the tibioperoneal trunk with 70% stenoses noted in the proximal segment of the left posterior tibial and peroneal arteries. Multiple passes were performed within the thrombus using Pronto thrombus aspiration catheter and the posterior tibial followed by peroneal and anterior tibial arteries. The posterior tibial and peroneal artery lesions were then dilated with a 2.5 x 20 mm Francis [place] balloon. Multiple thrombus aspirat ion passes were then performed again using the pronto aspiration catheter followed by multiple intra- articular injections of nitroglycerin and single injection of verapamil. Follow-up angiography showed resolution of the lesion with good flow in the posterior tibial and peroneal arteries. The anterior tibial artery also had good flow in the proximal to mid segments with occlusion in the distal segment . Patient will be started on heparin infusion per protocol and continue for 12-18 hours secondary to thrombus burden. Patient tolerated the procedure well. Hemostasis in the right groin was achieved usi ng Perclose suture closure device. Conclusion Successful MICA SIZER to complete occlusion with heavy thrombus burden involving the left superficial femora l artery with distal embolic protection using filter wire. Patient also underwent successful MICA SIZER to t he left posterior tibial and peroneal arteries. Recommendations Plavix 75 md daily (Patient allergic to aspirin) Vascular risk factor modification and regular exercise regimen Signed by : Ashley Ariza, Electronically Approved : 06/10/2018 17:18:31
[2018-06-10] MEDS: oxyCODONE/APAP 5/325 1 TAB TABLET PO PRN ×2 (17:52→21:55)
[2018-06-11 02:35] VITALS: BP 94/41
[2018-06-11 03:15] LABS: HEMATOCRIT 32.7 % (36.0-47.0); HEMOGLOBIN 11.5 g/dL (12.0-15.5); RED BLOOD COUNT 3.62 x10^6/uL (3.50-5.40); RED CELL DISTRIBUTION WIDTH 14.7 % (11.5-14.5); WHITE BLOOD COUNT 3.4 x10^3/uL (4.0-11.0)
[2018-06-11] MEDS: PANTOPRAZOLE 40 MG TABLET.DR. PO SCH (05:47)
[2018-06-11 07:00] VITALS: BP 113/46
[2018-06-11] MEDS: IPRATRPIUM/ALBUTEROL 0.5/2.5MG 3 ML NEBU. NEB SCH ×3 (08:00→15:34)
[2018-06-11] MEDS ORDERED: CLOPIDOGREL BISULFATE 75 MG TABLET PO SCH (08:00)
[2018-06-11] MEDS: SPIRONOLACTONE 25 MG TABLET PO SCH (08:25)
[2018-06-11] MEDS: IV NORMAL SALINE 1000ML BAG 1,000 ML IV SCH (08:25)
[2018-06-11] MEDS: FUROSEMIDE 40 MG TABLET. PO SCH (08:25)
[2018-06-11] MEDS: CHOLECALCIFEROL (VITAMIN D3) 1,000 UNIT TABLET PO SCH (08:26)
[2018-06-11] MEDS: oxyCODONE/APAP 5/325 1 TAB TABLET PO PRN (08:30)
[2018-06-11] MEDS: METOPROLOL SUCC 24HR ER 50 MG TAB.ER.24H. PO SCH (09:00)
[2018-06-11 11:00] VITALS: BP 95/47
[2018-06-11] MEDS ORDERED: METOPROLOL TART IMMED RELEASE 50 MG TABLET. PO SCH (11:00)
[2018-06-11] MEDS ORDERED: CLOP75TA PO (12:47)
--- NOTE | 2018-06-11 13:04 | PDOC3 ---
ENDER FLORES ORDERLIES TEACHER 06/11/18 1304: *Discharge Summary* Date of Admission: Jun 10, 2018 Date of Discharge: Jun 11, 2018 Admitting Diagnosis 1. critical limb ischemia 2. PAD 3. hypertension 4. tobacco abuse 5. Raynaud's syndrome Final Diagnosis 1. critical limb ischemia secondary to thrombus in left SFA 2. PAD 3. hypertension 4. tobacco abuse 5. Raynaud's syndrome Procedures 06/10/2018: ROLL RECLAIMER to complete occlusion with heavy thrombus burden involving the left superficial femoral artery with distal embolic protection using filter wire. ROLL RECLAIMER to the left posterior tibial and peroneal arteries. Brief Hospital Course Ms. Restrepo is a 62 old female with a history of PAD who presented to the office on 06/06/2018 with c/o LLE pain starting after an umbilical hernia repair . Venous study did not demonstrate DVT at the time of surgery. Presented to ER on 06/01/2018 with LLE pain and arterial duplex demonstrated complete occlusion of the left SFA and possibly embolic in etiology. C/O claudication pain in the calf as well as rest pain/burning sensation in the left foot. Evaluation with angiography and possible intervention advised. Deferred until due to transportation issues. Procedure completed on 06/10/2018 with details in procedure report. Monitor overnight. DP pulse in left foot 2+; PT in left 1+; 1+ DP and PT in right foot. Right GETTERING FILAMENT MACHINE OPERATOR site intact; no bruit at site. Chronic thrombocytopenia with platelet levels about 100K; 59 K this a.m .with heparin gtt stopped and will continue antiplatelet therapy with clopidogrel. Disposition/Orders: D/C to Home CONDITION AT DISCHARGE: Stable Diet: 2 gr sodium, Cardiac Home Meds Active Scripts Clopidogrel Bisulfate (CLOPIDOGREL) 75 Mg Tablet, 75 MG PO DAILYWBKFT for 90 Days, #90 TAB 1 Refill Prov:ENDER FLORES ORDERLIES TEACHER 06/11/18 Ipratropium/Albuterol Sulfate (COMBIVENT RESPIMAT INHAL) 4 Gm Aer.w.adap, 1 INH IH QID, #1 INHALER 1 Refill Prov:FABIO LAMA MD 11/24/17 Reported Medications Spironolactone (SPIRONOLACTONE) 25 Mg Tablet, 1 TAB PO DAILY, #90 TAB 1 Refill 06/10/18 Pentoxifylline (PENTOXIFYLLINE) 400 Mg Tablet.er, 400 MG PO TID, TAB.SR 06/10/18 Omeprazole (OMEPRAZOLE) 40 Mg Capsule.dr, 40 MG PO DAILY, CAP 04/08/18 Cholecalciferol (Vitamin D3) (VITAMIN D3) 2,000 Unit Capsule, 2000 UNIT PO DAILY , CAP 11/12/17 Oxycodone/Apap 10-325 (PERCOCET 10-325 MG TABLET) 1 Each Tablet, 1 TAB PO TID, # 90 TAB 11/12/17 Ondansetron Hcl (ZOFRAN) 8 Mg Tablet, 8 MG PO BID PRN for NAUSEA/VOMITING, TAB 11/12/17 Lactulose (GENERLAC) 10 Gm/15 Ml Solution, 10 GM PO, MISC 6-7 tablespoons daily per patient 11/12/17 Nadolol (NADOLOL) 40 Mg Tablet, 1 TAB PO DAILY, #30 TAB 5 Refills 11/12/17 Furosemide (FUROSEMIDE) 40 Mg Tablet, 1 TAB PO DAILY, #30 TAB 5 Refills 11/12/17 Discontinued Reported Medications Oxycodone Hcl (OXYCONTIN) 20 Mg Tab.er.12h, 20 MG PO BID for PAIN, TAB 11/12/17 Scheduled Cholecalciferol (Vitamin D3) (Vitamin D3), 2,000 UNIT PO DAILY, (Reported) Clopidogrel Bisulfate (Clopidogrel), 75 MG PO DAILYWBKFT Furosemide (Furosemide), 1 TAB PO DAILY, (Reported) Ipratropium/Albuterol Sulfate (Combivent Respimat Inhal), 1 INH IH QID Nadolol (Nadolol), 1 TAB PO DAILY, (Reported) Omeprazole (Omeprazole), 40 MG PO DAILY, (Reported) Oxycodone/Apap 10-325 (Percocet 10-325 Mg Tablet), 1 TAB PO TID, (Reported) Pentoxifylline (Pentoxifylline), 400 MG PO TID, (Reported) Spironolactone (Spironolactone), 1 TAB PO DAILY, (Reported) Scheduled PRN Ondansetron Hcl (Zofran), 8 MG PO BID PRN for NAUSEA/VOMITING, (Reported) Miscellaneous Medications Lactulose (Generlac), 10 GM PO, (Reported) Discontinued Medications Oxycodone Hcl (Oxycontin), 20 MG PO BID, (Reported) Scripts Clopidogrel Bisulfate (CLOPIDOGREL) 75 Mg Tablet 75 MG PO DAILYWBKFT for 90 Days, #90 TAB 1 Refill Prov: ENDER FLORES APRN 06/11/18 FOLLOW UP APPOINTMENT: [address] Gila Ariza PCP 7-10 days Time Spent Total time spent with patient [] minutes for coordination of care, counseling, and education. ASHLEY ARIZA MD 06/11/18 1539: *Discharge Summary* Brief Hospital Course Patient seen and examined. Agree with RECORD CHANGER's assessment and plan. s/p ROLL RECLAIMER/stent to left SFA and ROLL RECLAIMER to left ROLL RECLAIMER/peroneal arteries yesterday with improvement in symptoms. She is hemodynamically stable and arteriotomy site looked good. Continue Plavix and follow-up with our office as previously scheduled in 1 month. ENDER FLORES APRN Jun 11, 2018 13:04 ASHLEY ARIZA MD Jun 11, 2018 15:39
[2018-06-11 14:57] VITALS: BP 112/57
[2018-06-11] MEDS ORDERED: ANTI-COAG MONITOR BY PHARMACY. MC PRN (15:45)
== END 2018-06-11 16:50 | disposition home or self-care (01) ==
LOC: CCL 06:23 → INTOOBSV 09:30 → 2 NORTH 09:30
PROVIDERS: ADMIT Internal Medicine Cardiovascular Disease; ATTEND Internal Medicine Cardiovascular Disease
DX: I70.202 Unspecified atherosclerosis of native arteries of extremities, left leg (principal); I73.00 Raynaud's syndrome without gangrene; I10 Essential (primary) hypertension; Z72.0 Tobacco use; I74.3 Embolism and thrombosis of arteries of the lower extremities; I99.8 Other disorder of circulatory system; D69.6 Thrombocytopenia, unspecified; Z79.02 Long term (current) use of antithrombotics/antiplatelets
CPT/HCPCS: 36415; 37184; 37185; 37186; 37226; 37228; 37232; 80048; 85027; 85520; 85610; 85730; 94640; 94760; 96365; 96366; 96375; 96376; C1769; C1771; C1876; C1885; C1892; G0269; G0378; G0379; J1644; J2250; J3010; J3490; J7030; J7620; 99152; 99153

== ENCOUNTER → 2018-09-09 | Outpatient (CLI) | payer BC ==
[~2018-09-09] MED LIST changes: +CONTRAST GIVEN. MC PRN; +IOHEXOL 300 MG/ML 100ML VIAL. IV ONE; -OXYC-328 PO; +OXYC1TAB22 PO; +PENT400T4 PO
--- NOTE | 2018-09-09 16:34 | RAD ---
PQRS Compliance statement: One or more of the following individualized dose reduction techniques were utilized for this examination: 1. Automated exposure control. 2. Adjustment of the mA and/or kV according to patient size. 3. Use of iterative reconstruction technique. Indication:PORTAL HYPERTENSION CIRRHOSIS TECHNIQUE: CT abdomen without and with IV contrast with multiplanar reformats. COMPARISON: None FINDINGS: Heart is normal in size. No pericardial or pleural effusion. Nodular subpleural atelectasis and scarring is seen in the left lower lobe. Liver demonstrates morphologic changes of cirrhosis as suggested by nodular contour, low body distribution and increased facial gas. No arterially enhancing focal lesions that demonstrate washout on delayed phase images. Spleen is mildly enlarged measuring 15.5 cm without focal lesion. Status post cholecystectomy. Pancreas is within normal limits. Adrenal glands demonstrate no nodularity. No nephrolithiasis or hydronephrosis. No suspicious renal lesion. Mildly enlarged navid hepatis lymph nodes are seen, the largest measuring 2.0 x 0.9 cm most likely reactive. No enlarged retroperitoneal or pelvic adenopathy. No free pelvic fluid or ascites. Moderate diffuse atherosclerotic calcification is seen in the abdominal aorta and bilateral iliac arteries. The visualized bowel demonstrates no evidence of obstruction. There is recanalization of paraumbilical vein. The main portal vein is patent. Splenic vein and SMV are patent. The celiac axis and common hepatic artery are patent. Few paraesophageal varices are seen. No pneumoperitoneum. 5.7 x 4.8 cm right and 4.5 x 6.3 cm left low attenuating well-circumscribed lesions are seen in the bilateral adnexa. No suspicious bony lesion. IMPRESSION: 1. Findings of cirrhosis with evidence of portal venous hypertension. 2. No imaging evidence of HCC. Continued surveillance recommended. 3. Bilateral adnexal lesions. Nonemergent ultrasound of the pelvis is recommended. Electronically signed by: Nito Rodriguez DO (09/09/2018 4:30 PM) [facility]
== END | disposition home or self-care (01) ==
LOC: CT 15:03
PROVIDERS: ATTEND Family Medicine
DX: K76.6 Portal hypertension (principal); N83.8 Other noninflammatory disorders of ovary, fallopian tube and broad ligament; J98.11 Atelectasis; K76.89 Other specified diseases of liver; R16.1 Splenomegaly, not elsewhere classified; Z90.49 Acquired absence of other specified parts of digestive tract
CPT/HCPCS: 74170; Q9967

== ENCOUNTER → 2018-11-01 | Outpatient (CLI) | payer BC ==
[~2018-11-01] MED LIST changes: +ATOR40TA59 PO; -CONTRAST GIVEN. MC PRN; +DOCU-109 PO; -IOHEXOL 300 MG/ML 100ML VIAL. IV ONE; +LACT20SO PO; +NICO1PAT25 TP; +OXYC5CAP PO; -PENT400T4 PO; +PENT400T7 PO; +VITA200C PO
--- NOTE | 2018-11-01 15:31 | RAD ---
Pelvic ultrasound HISTORY: Abnormal CT scan, bilateral adnexal masses COMPARISON: September 09, 2018 CT exam FINDINGS: Multiple transabdominal sonographic images of pelvis are submitted. Uterus measured 4.8 x 4.4 x 2 cm. Endometrium measured about 0.1 cm. In the right adnexal region, there is a large 7 x 6.3 x 6.2 cm mostly anechoic lesion with increased through transmission, not associated with significant vascularity on color Doppler imaging. The normal right ovary is not demonstrated. In the left adnexal region, there is septated hypoechoic lesion in greatest dimension about 5.6 x 4 x 5.2 cm, also not associated with significant internal vascularity on color Doppler imaging, some internal echoes present. Left ovary is not well distinguished. IMPRESSION: 1. There are persistent hypoechoic cystic lesions of the adnexal regions bilaterally, more simple features on the right and septated, complex features on the left. These are not associated with significant hypervascularity. Findings could be due to sequela of large cysts although cystic masses such as from cystadenoma or cystadenocarcinoma not excludable. Lack of significant hypervascularity favors more benign etiology. Electronically signed by: Tyrone Ferreira MD (11/01/2018 3:26 PM) [facility]
== END ==
LOC: US 13:52
PROVIDERS: ATTEND Family Medicine
DX: N94.9 Unspecified condition associated with female genital organs and menstrual cycle (principal)
CPT/HCPCS: 76856

== ENCOUNTER 2018-11-19 07:57 | Observation (INO) | payer BC ==
[~2018-11-19] VITALS: Ht 175.3 cm; Wt 64.9 kg
[2018-11-19] VITALS (15 sets, daily range): BP systolic 94–127; BP diastolic 43–72
[~2018-11-19 07:57] MED LIST changes: -ATOR40TA59 PO; -DOCU-109 PO; -LACT20SO PO; -NICO1PAT25 TP; -OXYC5CAP PO; -VITA200C PO
[2018-11-19 08:36] LABS: HEMATOCRIT 41.5 % (36.0-47.0); HEMOGLOBIN 13.9 g/dL (12.0-15.5); RED BLOOD COUNT 4.6 x10^6/uL (3.50-5.40); WHITE BLOOD COUNT 5.3 x10^3/uL (4.0-11.0)
[2018-11-19] MEDS ORDERED: TRAM50TA PO (08:39)
[2018-11-19 08:43] LABS: CALCIUM 9.1 mg/dL (8.5-10.1); GFR 56.2; POTASSIUM 3.9 mmol/L (3.5-5.1)
[2018-11-19 08:52] LABS: PROTHROMBIN TIME PATIENT 14.4 SEC (11.7-14.0)
[2018-11-19] MEDS ORDERED: IODIXANOL 320 MG/ML 100 ML VIAL. ONE (09:21)
[2018-11-19] MEDS ORDERED: LIDOCAINE 1% Multi-Dose 20 ML VIAL. ONE ×2 (09:22→10:10)
[2018-11-19] MEDS ORDERED: HEPARIN for IV BOLUS 10,000 UNIT/10 ML VIAL. ONE (09:41)
[2018-11-19] MEDS ORDERED: fentaNYL PF VIAL 250 MCG/5 ML VIAL ONE (09:41)
[2018-11-19] MEDS ORDERED: MIDAZOLAM HCL/PF 5 MG/5 ML VIAL. ONE (09:41)
[2018-11-19] MEDS ORDERED: HEPARIN for IV BOLUS 10,000 UNIT/10 ML VIAL. IV ONE (10:15)
[2018-11-19] MEDS ORDERED: fentaNYL PF VIAL 250 MCG/5 ML VIAL IV ONE (10:15)
[2018-11-19] MEDS ORDERED: MIDAZOLAM HCL/PF 5 MG/5 ML VIAL. IV ONE (10:15)
[2018-11-19] MEDS ORDERED: LIDOCAINE 1% Multi-Dose 20 ML VIAL. INJ ONE (10:15)
[2018-11-19] MEDS ORDERED: IODIXANOL 320 MG/ML 100 ML VIAL. IART ONE (10:15)
[2018-11-19] MEDS ORDERED: CONTRAST GIVEN. MC PRN (10:30)
--- NOTE | 2018-11-19 11:21 | PDOC ---
MODERATE SEDATION ASSESSMENT RISKS/ALTERNATIVES Risks/Alternatives Risks and alternatives of this type of sedation and procedure discussed with: RISK/ALTERNATIVES: Patient H & P ON CHART H & P H & P on chart and reviewed for co-morbid conditions and appropriate labs. H&P ON CHART: Yes STATUS PREG STATUS ASSESSED: N/A MEDS/ALLERGIES REVIEWED Meds/Allergies Reviewed Medications and Allergies including time and route of recently administered narcotics and sedatives. MEDS/ALLERGIES REVIEWED: Yes ASA RATING ASA RATING: III AIRWAY ASSESSMENT Airway Assessment Airway patency, oral function limitations, presence of caps, crowns, dentures, partials, and ability to extend neck assessed. AIRWAY ASSESSMENT: Yes MALLAMPATI SCORE MALLAMPATI SCORE: II PRE-SEDATION ASSESSMENT PRE-SEDATION ASSESSMENT: Yes ASHLEY ARIZA MD Nov 19, 2018 11:21
[2018-11-19] MEDS ORDERED: ACETAMINOPHEN 325 MG TABLET. PO PRN (11:30)
--- NOTE | 2018-11-19 11:37 | CARD ---
MR#: [id number] Date of Study: 11/19/2018 Ordering Physician: ASHLEY ARIZA, Referring Physician: ASHLEY ARIZA Tech: CARMINA BURGESS RTR APPROVED REPORT Technologist: CARMINA BURGESS RTR Nurse: ARTHUR PARNELL RN Procedure(s) performed: Aortogram with bilateral lower extremity runoff Moderate sedation:62 mins INDICATION The indication(s) include : Peripheral vascular disease with claudication. PROCEDURE NARRATIVE After explaining the risks, benefits and alternative options, informed consent was obtained from deng ent. Patient was brought to the cardiac Property Handler and her right groin was prepped and draped in the us ual fashion. 20 mL of 2% lidocaine was infiltrated into the skin and subcutaneous tissues for local a nesthesia. Arterial access was obtained in the right common femoral artery and a 6 Zambian 23 cm brigh t tip sheath was inserted. Since patient had difficult peripheral venous access, a 5 Zambian sheath wa s placed in the right common femoral vein for intravenous administration of medications. A 5 Zambian p igtail catheter was used to perform aortogram with bilateral lower extremity runoff. The aortic michele a was crossed with the help of a 5 Zambian crossover catheter was then exchanged over a 0.035 inch Gli dewire advantage wire to 4 Zambian glide catheter. The tip was positioned in the proximal segment of t he left superficial femoral artery and selective left lower extremity angiography was performed. Sinc e patient seemed to have spasm of the right external iliac artery, the sheath was pulled back into th e right common femoral artery and selective angiography was performed after administration of 200 valentino s nitroglycerin through the sheath. Patient tolerated the procedure well. Hemostasis was achieved usi ng manual compression. The following findings were noted. FINDINGS 1. No significant stenosis involving the distal descending aorta and bilateral common iliac arteries . 2. Severe spasm of the right external iliac artery that resolved after administration of nitroglyceri n through the sheath. There appeared to be 40% residual stenosis involving the very proximal segment. The left external iliac artery did not show any significant stenosis. 3. No significant stenosis involving bilateral common femoral arteries. 4. The right superficial femoral artery showed minimal luminal irregularities without any significan t stenosis. The left superficial femoral artery showed a long 100% chronic total occlusion involving the mid and distal segments, starting just before the previously placed stent and reconstituting via collaterals in the very distal portion of the stent. 5. No significant stenosis involving bilateral popliteal arteries. 6. There is good three vessel runoff below the knee, right lower extremity. 7. The left peroneal artery did not show any significant stenosis. The left anterior tibial artery s howed 100% chronic occlusion in the midsegment with distal reconstitution via collaterals. The left p osterior tibial artery showed 80% stenosis in the proximal segment with slightly sluggish flow distal ly. Conclusion 100% chronic total occlusion within the stent in the left superficial femoral artery Recommendations Since patient had drug-coated balloon angioplasty initially followed by stent placement for recurrent occlusion left SFA and has now presented with occlusion within the stent, we will consult Vascular s urgery for possible left femoropopliteal bypass surgery. Optimize medical therapy by adding statin to Plavix that she is already taking. She is intolerant to aspirin. Vascular risk factor modification including complete smoking cessation. Signed by : Ashley Ariza, Electronically Approved : 11/19/2018 11:37:03
--- NOTE | 2018-11-19 12:06 | NUR ---
Patient's was contacted to inform him that she will stay overnight in room 205. Patient's right groin site is soft with no bleeding. Referral to vascular surgery for further treatment.
--- NOTE | 2018-11-19 14:13 | PDOC2 ---
CONSULT Date of Consult Date of Consult DATE: 11/19/18 TIME: 13:59 History of Present Illness Reason for Visit: Pt is a pleasant 63 year old female with reported history of cirrhosis, PAD, hypertension and "porphyria". She came to [facility] today for arteriogram. Dr. Grigsby spoke with Dr. Umanzor regarding results. Pt reports she has had claudication symptoms for about 6 months, she cannot walk more than 60feet without having to rest due to left leg pain. She also reports her left foot has pain in the middle of the night that only resolves once she sits up and dangles her feet over the bed. She reports minimal intermittent left foot numbness. She has no foot wounds or sores. Both her feet reportedly are cold often. She is a current everyday smoker, from 1 pack a day to 5 cigarettes a day for the past 40 + years. She currently takes plavix daily, she is allergic to aspirin with reportedly an anaphylactic reaction. Past Medical History Cardiovascular: HTN, Other Pulmonary: COPD GI: GERD Hepatobiliary: Cirrhosis, Hep A/B/C Musculoskeletal: Osteoarthritis Rheumatologic: No pertinent hx Infectious disease: No pertinent hx Renal/: No pertinent hx Endocrine: No pertinent hx Past Surgical History Past Surgical History: Other Family History Family History Father with carotid disease Family History: Hypertension Social History 1 pack per day ALCOHOL: none Drugs: None Lives: with Family Current Medications Current Medications Current Medications Iodixanol (Visipaque 320) 100 ml STK-MED ONCE .ROUTE ; Start 11/19/18 at 09:21; Stop 11/19/18 at 09:22; Status DC Lidocaine HCl (Lidocaine 1% 20ml Vial) 20 ml STK-MED ONCE .ROUTE ; Start at 09:22; Stop 11/19/18 at 09:23; Status DC Heparin Sodium/ Sodium Chloride 500 ml @ As Directed STK-MED ONCE .ROUTE ; Start 11/19/18 at 09:22; Stop 11/19/18 at 09:23; Status DC Midazolam HCl (Versed) 5 mg STK-MED ONCE .ROUTE ; Start 11/19/18 at 09:41; Stop 11/19/18 at 09:42; Status DC Fentanyl Citrate (Fentanyl 5ml Vial) 250 mcg STK-MED ONCE .ROUTE ; Start at 09:41; Stop 11/19/18 at 09:42; Status DC Heparin Sodium (Porcine) (Heparin Sodium) 10,000 unit STK-MED ONCE .ROUTE ; Start 11/19/18 at 09:41; Stop 11/19/18 at 09:42; Status DC Lidocaine HCl (Lidocaine 1% 20ml Vial) 20 ml STK-MED ONCE .ROUTE ; Start at 10:10; Stop 11/19/18 at 10:11; Status DC Heparin Sodium/ Sodium Chloride (HEPARIN for ARTERIAL LINE FLUSH) 1,000 unit 1X ONCE IART Last administered on 11/19/18at 10:15; Start 11/19/18 at 10:15; Stop 11/19/18 at 10:22; Status DC Midazolam HCl (Versed) 5 mg 1X ONCE IV Last administered on 11/19/18 10:15; Start 11/19/18 at 10:15; Stop 11/19/18 at 10:22; Status DC Fentanyl Citrate (Fentanyl 5ml Vial) 250 mcg 1X ONCE IV Last administered on at 10:15; Start 11/19/18 at 10:15; Stop 11/19/18 at 10:22; Status DC Iodixanol (Visipaque 320) 100 ml 1X ONCE IART Last administered on 11/19/18at 10:15; Start 11/19/18 at 10:15; Stop 11/19/18 at 10:22; Status DC Heparin Sodium (Porcine) (Heparin Sodium) 5,000 unit 1X ONCE IV ; Start at 10:15; Stop 11/19/18 at 10:24; Status DC Lidocaine HCl (Lidocaine 1% 20ml Vial) 20 ml 1X ONCE INJ Last administered on 11/19/18at 10:15; Start 11/19/18 at 10:15; Stop 11/19/18 at 10:22; Status DC Info (CONTRAST GIVEN -- Rx MONITORING) 1 each PRN DAILY PRN MC SEE COMMENTS; Start 11/19/18 at 10:30; Stop 11/21/18 at 10:29 Heparin Sodium/ Sodium Chloride (HEPARIN for ARTERIAL LINE FLUSH) 1,000 unit 1X ONCE IART Last administered on 11/19/18at 10:30; Start 11/19/18 at 10:30; Stop 11/19/18 at 10:31; Status DC Acetaminophen (Tylenol) 650 mg PRN Q6HRS PRN PO MILD PAIN; Start 11/19/18 at 11 :30; Stop 11/20/18 at 11:29 Atorvastatin Calcium (Lipitor) 40 mg QHS PO ; Start 11/19/18 at 21:00; Stop at 20:59 Active Scripts Active Clopidogrel (Clopidogrel Bisulfate) 75 Mg Tablet 75 Mg PO DAILYWBKFT 90 Days Combivent Respimat Inhal (Ipratropium/Albuterol Sulfate) 4 Gm Aer.w.adap 1 Inh IH QID Reported Tramadol Hcl 50 Mg Tablet 50 Mg PO Q4HRS PRN Spironolactone 25 Mg Tablet 1 Tab PO DAILY Pentoxifylline 400 Mg Tablet.er 400 Mg PO TID Omeprazole 40 Mg Capsule.dr 40 Mg PO DAILY Vitamin D3 (Cholecalciferol (Vitamin D3)) 2,000 Unit Capsule 2,000 Unit PO DAILY Zofran (Ondansetron Hcl) 8 Mg Tablet 8 Mg PO BID PRN Nadolol 40 Mg Tablet 1 Tab PO DAILY Furosemide 40 Mg Tablet 1 Tab PO DAILY Allergies Allergies: Coded Allergies: NSAIDS (Non-Steroidal Anti-Inflamma (Verified Allergy, Severe, Anaphylaxis , 04/09/18) aspirin (Verified Allergy, Severe, Anaphylaxis, 04/09/18) levofloxacin (Verified Adverse Reaction, Intermediate, 04/09/18) DEVELOPED BOTULISM FROM RECEIVING LEVAQUIN ROS Review of System Denies 12 point ROS Physical Exam General: Alert, Oriented X3, Cooperative HEENT: Atraumatic Lungs: Clear to auscultation, Normal air movement Heart: Regular rate, Normal S1, Normal S2 Abdomen: Soft, No tenderness Extremities: No cyanosis, No edema, No tenderness/swelling, Other (Bilateral feet cold, palpable PT pulses BL. Monophasic left DP on doppler. Strong right DP on doppler. Motor function intact BL, sensation minimally limited on left foot to plantar heel. ) Skin: No rashes, No breakdown, No significant lesion Neuro: Normal speech, Normal tone, Sensation intact Psych/Mental Status: Mental status NL, Mood NL MUSCULOSKELETAL: No swelling, Full range of motion without pain Vitals VITALS Vital Signs Date Time Temp Pulse Resp B/P (MAP) Pulse Ox O2 Delivery O2 Flow Rate FiO2 11/19/18 13:38 59 100/58 (72) 11/19/18 13:06 Room Air 2/19/19 12:10 15 98 11/19/18 10:59 2.0 11/19/18 08:33 97.6 97.6 Labs Labs Laboratory Tests Test 11/19/18 08:29 White Blood Count 5.3 x10^3/uL (4.0-11.0) Red Blood Count 4.60 x10^6/uL (3.50-5.40) Hemoglobin 13.9 g/dL (12.0-15.5) Hematocrit 41.5 % (36.0-47.0) Mean Corpuscular Volume 90 fL (79-100) Mean Corpuscular Hemoglobin 30 pg (25-35) Mean Corpuscular Hemoglobin Concent 33 g/dL (31-37) Red Cell Distribution Width 14.0 % (11.5-14.5) Platelet Count 106 x10^3/uL (140-400) Prothrombin Time 14.4 SEC (11.7-14.0) Prothromb Time International Ratio 1.2 (0.8-1.1) Sodium Level 139 mmol/L (136-145) Potassium Level 3.9 mmol/L (3.5-5.1) Chloride Level 101 mmol/L (98-107) Carbon Dioxide Level 29 mmol/L (21-32) Anion Gap 9 (6-14) Blood Urea Nitrogen 17 mg/dL (7-20) Creatinine 1.0 mg/dL (0.6-1.0) Estimated GFR (Cockcroft-Gault) 56.2 Glucose Level 95 mg/dL (70-99) Calcium Level 9.1 mg/dL (8.5-10.1) Laboratory Tests Test 11/19/18 08:29 White Blood Count 5.3 x10^3/uL (4.0-11.0) Red Blood Count 4.60 x10^6/uL (3.50-5.40) Hemoglobin 13.9 g/dL (12.0-15.5) Hematocrit 41.5 % (36.0-47.0) Mean Corpuscular Volume 90 fL (79-100) Mean Corpuscular Hemoglobin 30 pg (25-35) Mean Corpuscular Hemoglobin Concent 33 g/dL (31-37) Red Cell Distribution Width 14.0 % (11.5-14.5) Platelet Count 106 x10^3/uL (140-400) Prothrombin Time 14.4 SEC (11.7-14.0) Prothromb Time International Ratio 1.2 (0.8-1.1) Sodium Level 139 mmol/L (136-145) Potassium Level 3.9 mmol/L (3.5-5.1) Chloride Level 101 mmol/L (98-107) Carbon Dioxide Level 29 mmol/L (21-32) Anion Gap 9 (6-14) Blood Urea Nitrogen 17 mg/dL (7-20) Creatinine 1.0 mg/dL (0.6-1.0) Estimated GFR (Cockcroft-Gault) 56.2 Glucose Level 95 mg/dL (70-99) Calcium Level 9.1 mg/dL (8.5-10.1) Assessment/Plan Assessment/Plan Peripheral arterial disease with claudication and intermittent rest pain - Dr. Grigsby gave physician to physician report to Dr. Umanzor over the phone earlier today. She has a 100% chronic total occlusion within the stent in the left SFA, this is recurrent. The Patient will be seeing us in our office on Sunday for further vascular studies and for future revascularization plans. She is ok for discharge later today from our standpoint. I discussed this all with the patient at length who exhibited understanding and agreed with the plan. All her questions were answered to satisfaction. Thank you for consult. Tobacco dependence - I discussed cessation with patient at length. She exhibited understanding that if she continues to smoke she is at higher risk for TX, CVA, limb loss. I spent a total of 30 minutes on patient care including chart review, with the patient counseling and discussing plan, >3 minutes of tobacco cessation counseling. JOSLYN IGNACIO Nov 19, 2018 14:13
[2018-11-19] MEDS ORDERED: ATORVASTATIN CALCIUM 40 MG TABLET. PO SCH (21:00)
[2018-11-19] MEDS: oxyCODONE/APAP 10/325 1 TAB TABLET PO PRN (21:34)
[2018-11-19] MEDS: oxyCODONE ER 10 MG TAB.ER.12H PO SCH (23:57)
[2018-11-20 03:25] VITALS: BP 101/52
[2018-11-20] MEDS: oxyCODONE/APAP 10/325 1 TAB TABLET PO PRN (06:34)
[2018-11-20 07:20] VITALS: BP 112/53
[2018-11-20] MEDS: oxyCODONE ER 10 MG TAB.ER.12H PO SCH (08:31)
[2018-11-20] MEDS ORDERED: ATOR40TA59 PO (10:59)
--- NOTE | 2018-11-20 11:00 | NUR ---
wound care patient seen per wound care consult. see wound assessment. patient has a left lateral 4th toe non blanchable area, the patient stated she had been noticing her 5th toe crossing onto the 4th toe and rubbing, the area is reddened, recommendations of a foam to help add padding to the area, and to notify the vascular physician when she f/u. the area was measured and pictured and applied a foam dressing and bandaid to the area at this time. notified ATILIO Wilson about the POC.
--- NOTE | 2018-11-20 11:29 | PDOC3 ---
GINI PIÑA SHIPPING ROOM SUPERVISOR 11/20/18 1129: Discharge Summary Visit Information Date of Admission: Nov 19, 2018 Date of Discharge: Nov 20, 2018 Admitting Diagnosis: Severe PAD with claudication Final Diagnosis Severe PAD with claudication, S/P femoral runoff with 100% occlusion to [facility] Brief Hospital Course Allergies Allergies Coded Allergies Type Severity Reaction Last Updated Verified NSAIDS (Non-Steroidal Anti-Inflamma Allergy Severe Anaphylaxis 04/09/18 Yes aspirin Allergy Severe Anaphylaxis 04/09/18 Yes levofloxacin Adverse Reaction Intermediate 04/09/18 Yes Vital Signs Vital Signs Date Time Temp Pulse Resp B/P (MAP) Pulse Ox O2 Delivery O2 Flow Rate FiO2 11/20/18 08:31 98 Room Air 11/20/18 07:20 97.9 64 16 112/53 (72) 97.9 11/19/18 10:59 2.0 Lab Results Laboratory Tests Test 11/19/18 08:29 White Blood Count 5.3 x10^3/uL (4.0-11.0) Red Blood Count 4.60 x10^6/uL (3.50-5.40) Hemoglobin 13.9 g/dL (12.0-15.5) Hematocrit 41.5 % (36.0-47.0) Mean Corpuscular Volume 90 fL (79-100) Mean Corpuscular Hemoglobin 30 pg (25-35) Mean Corpuscular Hemoglobin Concent 33 g/dL (31-37) Red Cell Distribution Width 14.0 % (11.5-14.5) Platelet Count 106 x10^3/uL (140-400) Prothrombin Time 14.4 SEC (11.7-14.0) Prothromb Time International Ratio 1.2 (0.8-1.1) Sodium Level 139 mmol/L (136-145) Potassium Level 3.9 mmol/L (3.5-5.1) Chloride Level 101 mmol/L (98-107) Carbon Dioxide Level 29 mmol/L (21-32) Anion Gap 9 (6-14) Blood Urea Nitrogen 17 mg/dL (7-20) Creatinine 1.0 mg/dL (0.6-1.0) Estimated GFR (Cockcroft-Gault) 56.2 Glucose Level 95 mg/dL (70-99) Calcium Level 9.1 mg/dL (8.5-10.1) Brief Hospital Course Ms. Restrepo is a 63 yo female admitted for planned femoral runoff due to severe PAD with claudication. She is significant for PVI in her LLE in the past but per femoral runoff, she has been noted with 100% chronic total reocclusion within the stent in her LSFA. She tolerated the procedure well without complications. Right groin arteriotomy site intact without hematoma or swelling or redness. Neurovascular status to bilateral LE intact. She is intolerant to ASA so she has plavix on board and lipitor Rx has been given. Vascular surgery has evaluated her and further workup is to be done as an outpt for consideration for open revascularization. Again encouraged complete cessation of smoking. No rhythm ectopies. VSS. She did well overnight without any discomfort. She is to continue her home meds with lipitor as and additional Rx. Check LFTs and lipids in her PCP office in 6-8 wks. Discharge Information Condition at Discharge: Stable Follow Up: Months (3) Disposition/Orders: D/C to Home Scheduled Atorvastatin Calcium (Atorvastatin Calcium) 40 Mg Tablet, 40 MG PO QHS for hlp for 30 Days, #30 Ref 2 Prescribed by: GINI PIÑA on 11/20/18 1059 Cholecalciferol (Vitamin D3) (Vitamin D3) 2,000 Unit Capsule, 2,000 UNIT PO DAILY, (Reported) Entered as Reported by: LOGAN SIFUENTES on 11/12/17715 Last Taken: Unknown Dose on 11/18/18 Last Action: Last Taken Edited on 08 by LOGAN SIFUENTES Clopidogrel Bisulfate (Clopidogrel) 75 Mg Tablet, 75 MG PO DAILYWBKFT for 90 Days, #90 Ref 1 Prescribed by: ENDER FLORES on 06/11/18 1247 Last Taken: Unknown Dose on 11/18/18 Last Action: Last Taken Edited on 08 by LOGAN SIFUENTES Furosemide (Furosemide) 40 Mg Tablet, 1 TAB PO DAILY, #30 Ref 5 (Reported) Entered as Reported by: LOGAN SIFUENTES on 11/12/17715 Last Taken: Unknown Dose on 11/18/18 Last Action: Last Taken Edited on 838 by LOGAN SIFUENTES Ipratropium/Albuterol Sulfate (Combivent Respimat Inhal) 4 Gm Aer.w.adap, 1 INH IH QID, #1 Ref 1 Prescribed by: FABIO LAMA on 11/24/17 1019 Last Taken: Unknown Dose on 11/18/18 Last Action: Last Taken Edited on 838 by LOGAN SIFUENTES Nadolol (Nadolol) 40 Mg Tablet, 1 TAB PO DAILY, #30 Ref 5 (Reported) Entered as Reported by: LOGAN SIFUENTES on 11/12/17715 Last Taken: Unknown Dose on 11/19/18 Last Action: Last Taken Edited on 838 by LOGAN SIFUENTES Omeprazole (Omeprazole) 40 Mg Capsule.dr, 40 MG PO DAILY, (Reported) Entered as Reported by: SUZANNA RICHARDSON on 04/08/181753 Last Taken: Unknown Dose on 11/18/18 Last Action: Last Taken Edited on 838 by LOGAN SIFUENTES Pentoxifylline (Pentoxifylline) 400 Mg Tablet.er, 400 MG PO TID, (Reported) Entered as Reported by: MARIANO ESQUIVEL on 06/10/18716 Last Taken: Unknown Dose on 11/18/18 Last Action: Last Taken Edited on 838 by LOGAN SIFUENTES Spironolactone (Spironolactone) 25 Mg Tablet, 1 TAB PO DAILY, #90 Ref 1 ( Reported) Entered as Reported by: MARIANO ESQUIVEL on 06/10/18716 Last Taken: Unknown Dose on 11/18/18 Last Action: Last Taken Edited on 838 by LOGAN SIFUENTES Scheduled PRN Ondansetron Hcl (Zofran) 8 Mg Tablet, 8 MG PO BID PRN for NAUSEA/VOMITING, ( Reported) Entered as Reported by: LOGAN SIFUENTES on 11/12/17715 Last Taken: Unknown Dose on 11/18/18 Last Action: Last Taken Edited on 838 by LOGAN SIFUENTES Tramadol Hcl (Tramadol Hcl) 50 Mg Tablet, 50 MG PO Q4HRS PRN for PAIN, (Reported ) Entered as Reported by: LOGAN SIFUENTES on 11/19/18838 Last Taken: Unknown Dose on 11/18/18 Last Action: New Order on 11/19/18838 by LOGAN SIFUENTES Patient Instructions Patient Instructions GENERAL INSTRUCTIONS: 1. Your dressing should be removed prior to leaving the hospital. 2. It is OK to shower the day after your procedure. 3. If you received stents, be sure to carry your stent information card with you in your wallet/purse at all times. 4. Call the office immediately at [phone] if you notice any fever or if there is redness, worsening tenderness/pain, increased bruising, or drainage from the puncture site. 5. Should you have bleeding from the site, lie down immediately & put pressure on the site. The pressure should be hard enough to stop the bleeding. Have the nearest person call 911. DO NOT try to drive to the ER with active bleeding. 6. If you notice a change in color, coolness to touch, or loss of feeling in the affected extremity, come to the emergency room. Please have someone drive you or call 911 if no one is available. DO NOT drive yourself. 7. If you normally take glucophage (metformin), please do not take this medicine for 48 hours following your procedure. 8. DO NOT STOP TAKING YOUR PLAVIX OR ASPIRIN UNLESS IT IS CLEARED BY A AUTOMOBILE DRIVERS OF YOUR OFFICE ADMINISTRATION AT OUR OFFICE. 9. QUIT SMOKING: the [place] [employer], [place] [employer], & [place] [employer] have cessation resources available on their websites 10. Please have someone available to drive you home from the hospital as you may be limited by sedation medications given during the procedure. Femoral (Groin) access: 1. Do no lifting, pushing, pulling, bending, stooping, or recurrent stair climbing for 3 days following your procedure. 2. Once past the first 3 days, do not do any HEAVY exertion or lifting for one week following the procedure. No gym workouts, running, lifting greater than a gallon of milk, etc 3. Do not submerge in bath or pool for one week. OK to drive 3 days following your procedure, but if going long distance, do not go alone & take hourly breaks to get out of car and walk around. Call the office at [phone] for any questions or concerns. ASHLEY ARIZA MD 11/20/18 9088: Discharge Summary Brief Hospital Course Brief Hospital Course Patient seen and examined. Agree with TACTICAL DECEPTION PLANS OFFICER's assessment and plan. Aortogram with runoff showed recurrent and chronic total occlusion of left SFA as stated above. Vascular surgery team has been consulted for possible left femoropopliteal bypass surgery - she is scheduled to see Dr. Umanzor next week for possible consideration for outpatient surgical revascularization. Statins were added to her medical regimen to optimize treatment. GINI PIÑA APRN Nov 20, 2018 11:29 ASHLEY ARIZA MD Nov 20, 2018 12:08
--- NOTE | 2018-11-20 11:40 | NUR ---
Discharge Note: JERZY BENNETT Discharge instructions and discharge home medications reviewed with Patient and a copy given. All questions have been answered and understanding verbalized. Patients was accompanied by RN to door. Patient A&Ox4.
[2018-11-28] MEDS ORDERED: VITA200C PO (15:17)
[2018-11-28] MEDS ORDERED: OXYC20TA34 PO (15:17)
[2018-11-28] MEDS ORDERED: NICO1PAT25 TP (15:18)
[2018-11-28] MEDS ORDERED: LACT20SO PO (15:18)
[2018-11-28] MEDS ORDERED: OMEP40CA5 PO (15:19)
[2018-11-28] MEDS ORDERED: SPIR25TA5 PO (15:21)
[2018-11-28] MEDS ORDERED: OXYC5CAP PO (15:22)
== END 2018-11-20 12:10 | disposition home or self-care (01) ==
LOC: CCL 07:57 → 2 NORTH 11:20
PROVIDERS: ADMIT Internal Medicine Cardiovascular Disease; ATTEND Internal Medicine Cardiovascular Disease
DX: I73.9 Peripheral vascular disease, unspecified (principal); I70.202 Unspecified atherosclerosis of native arteries of extremities, left leg
CPT/HCPCS: 36246; 36415; 75630; 80048; 85027; 85610; 96374; 96375; 99406; C1769; C1892; G0378; G0379; J1644; J2250; J3010; 99152; 99153; Q9967

== ENCOUNTER 2018-12-02 08:03 | Inpatient (IN) | payer BC ==
[~2018-12-02] VITALS: Ht 175.3 cm; Wt 68.3 kg
[2018-12-02] VITALS (8 sets, daily range): BP systolic 114–166; BP diastolic 58–78
[~2018-12-02 08:03] MED LIST changes: +ATOR40TA59 PO; +HEPARIN SODIUM 5,000 UNIT in IV NORMAL SALINE 500ML BAG 500 ML IRR ONE; +IV RINGERS,LACTATED 1000ML 1,000 ML IV SCH; +LACT20SO PO; +LIDOCAINE 1% PF 2 ML VIAL. ID PRN; +NICO1PAT25 TP; +ONDANSETRON PF 4 MG/2 ML VIAL. IV PRN; +OXYC5CAP PO; +VITA200C PO; +fentaNYL PF VIAL 100 MCG/2 ML VIAL IV PRN
[2018-12-02] MEDS ORDERED: IOHEXOL 300 MG/ML 100ML VIAL. ONE (09:03)
[2018-12-02 09:04] LABS: RED BLOOD COUNT 4.59 x10^6/uL (3.50-5.40); WHITE BLOOD COUNT 6.4 x10^3/uL (4.0-11.0)
[2018-12-02] MEDS ORDERED: THROMBIN TOPICAL 20,000 UNIT SPRAY.SYRN KIT TP ONE (09:04)
[2018-12-02 09:05] LABS: BASO # 0.1 x10^3/uL (0.0-0.2); BASO % 1 % (0-3); EOS # 0.2 x10^3/uL (0.0-0.7); EOS % 3 % (0-3); HEMATOCRIT 41.9 % (36.0-47.0); HEMOGLOBIN 13.9 g/dL (12.0-15.5); LYMPH # 1.1 x10^3/uL (1.0-4.8); LYMPH % 18 % (24-48); MEAN CORPUSCULAR HEMOGLOBIN 30 pg (25-35); MEAN CORPUSCULAR HGB CONC 33 g/dL (31-37); MEAN CORPUSCULAR VOLUME 91 fL (79-100); MONO # 0.5 x10^3/uL (0.0-1.1); MONO % 9 % (0-9); NEUT # 4.5 x10^3uL (1.8-7.7); NEUT % 70 % (31-73); PLATELET COUNT 128 x10^3/uL (140-400); RED CELL DISTRIBUTION WIDTH 14.2 % (11.5-14.5)
[2018-12-02] MEDS ORDERED: GELATIN SPONGE SIZE 12-7MM SPONGE. ONE (09:05)
[2018-12-02] MEDS ORDERED: SURGICEL HEMOSTAT 4X8 EACH. ONE (09:05)
[2018-12-02] MEDS ORDERED: LABETALOL 20 MG/4 ML DISP.SYRIN. IVP PRN (09:15)
[2018-12-02] MEDS ORDERED: hydrALAZINE 20 MG/ML VIAL. IVP PRN (09:15)
[2018-12-02] MEDS ORDERED: NALOXONE 0.4 MG/ML VIAL. IV PRN (09:15)
[2018-12-02] MEDS ORDERED: 0.9 % SODIUM CHLORIDE 10 ML DISP.SYRIN. IV PRN (09:15)
[2018-12-02] MEDS ORDERED: PROCHLORPERAZINE 10 MG/2 ML VIAL. IV PRN (09:15)
[2018-12-02] MEDS ORDERED: DOCUSATE SODIUM 100 MG CAPSULE. PO PRN (09:15)
[2018-12-02] MEDS ORDERED: NON FORMULARY ITEM (Ondansetron Hcl (Zofran) 8 MG) PO PRN (09:15)
[2018-12-02] MEDS ORDERED: ONDANSETRON PF 4 MG/2 ML VIAL. IV PRN (09:15)
[2018-12-02 09:16] LABS: PROTHROMBIN TIME PATIENT 14.2 SEC (11.7-14.0)
[2018-12-02] MEDS ORDERED: ROCURONIUM 50 MG/5 ML VIAL. ONE (09:19)
[2018-12-02] MEDS ORDERED: fentaNYL PF VIAL 250 MCG/5 ML VIAL ONE (09:19)
[2018-12-02] MEDS ORDERED: MIDAZOLAM HCL/PF 2 MG/2 ML VIAL. ONE (09:19)
[2018-12-02 09:21] LABS: CALCIUM 9.1 mg/dL (8.5-10.1); GFR 56.2; POTASSIUM 3.5 mmol/L (3.5-5.1)
[2018-12-02 09:28] LABS: ALBUMIN 3.9 g/dL (3.4-5.0); TOTAL BILIRUBIN 1.2 mg/dL (0.2-1.0); TOTAL PROTEIN 7.8 g/dL (6.4-8.2)
[2018-12-02] MEDS ORDERED: oxyCODONE ER 10 MG TAB.ER.12H PO SCH (10:00)
[2018-12-02] MEDS: METOPROLOL TART IMMED RELEASE 50 MG TABLET. PO SCH ×2 (10:00→21:31)
[2018-12-02] MEDS ORDERED: DEXAMETHASONE SOD PHOS 20 MG/5 ML VIAL. ONE (10:13)
[2018-12-02] MEDS ORDERED: HEPARIN for IV BOLUS 10,000 UNIT/10 ML VIAL. ONE (10:13)
[2018-12-02] MEDS ORDERED: LIDOCAINE 2% PF 5 ML VIAL. ONE (10:13)
[2018-12-02] MEDS ORDERED: PROPOFOL 20 ML IV ONE (10:13)
[2018-12-02] MEDS ORDERED: ONDANSETRON PF 4 MG/2 ML VIAL. ONE (10:13)
[2018-12-02] MEDS: VITAMIN E 200 UNIT CAPSULE. PO SCH (11:00)
[2018-12-02] MEDS: NICOTINE 14MG PATCH. TD SCH (11:00)
[2018-12-02] MEDS: FUROSEMIDE 40 MG TABLET. PO SCH (11:00)
[2018-12-02] MEDS: SPIRONOLACTONE 25 MG TABLET PO SCH (11:00)
[2018-12-02] MEDS: PANTOPRAZOLE 40 MG TABLET.DR. PO SCH (11:30)
[2018-12-02] MEDS ORDERED: SURGICEL FIBRILLAR 1X2 EACH. ONE (11:40)
[2018-12-02] MEDS: IPRATRPIUM/ALBUTEROL 0.5/2.5MG 3 ML NEBU. NEB SCH ×3 (12:00→19:41)
[2018-12-02] MEDS ORDERED: SURGICEL FIBRILLAR 1X2 EACH. SURGSITE ONE (12:13)
[2018-12-02] MEDS ORDERED: NON FORMULARY ITEM (Ipratropium/Albuterol Sulfate (Combivent Respimat Inhal) 1 INH) IH SCH (13:00)
[2018-12-02] MEDS ORDERED: PROTAMINE 50 MG/5 ML VIAL. IV ONE (13:03)
--- NOTE | 2018-12-02 13:29 | PDOC ---
BRIEF OPERATIVE NOTE Date: Dec 02, 2018 Pre-Op Diagnosis PAD with right SFA occlusion Post-Op Diagnosis same Procedure Performed Left femoral to popliteal bypass with greater saphenous vein insitu Surgeon Dr. Umanzor Loading And Unloading Supervisor Ryanne Wagoner NP Anesthesia Type: General Blood Loss 100cc Specimens Obtained none Findings Doppler DP and PT Complications none Operative Note see dictated op note RYANNE WAGONER HOUSEKEEPER AND LAUNDRY ASSISTANT Dec 02, 2018 13:29
[2018-12-02] MEDS ORDERED: fentaNYL PF VIAL 100 MCG/2 ML VIAL ONE (13:39)
[2018-12-02] MEDS ORDERED: PROCHLORPERAZINE 10 MG/2 ML VIAL. ONE (13:39)
[2018-12-02] MEDS ORDERED: CLOPIDOGREL BISULFATE 75 MG TABLET PO ONE (13:45)
[2018-12-02] MEDS: fentaNYL PF VIAL 100 MCG/2 ML VIAL IV PRN ×2 (13:50→13:58)
[2018-12-02] MEDS ORDERED: MORPHINE SULFATE 2 MG/ML VIAL. ONE (14:11)
[2018-12-02] MEDS: MORPHINE SULFATE 2 MG/ML VIAL. IV PRN ×2 (14:12→14:25)
[2018-12-02] MEDS ORDERED: HYDROmorphone 2 MG/ML VIAL ONE ×2 (14:26→15:42)
[2018-12-02] MEDS: HYDROmorphone 2 MG/ML VIAL IV PRN ×6 (14:34→16:34)
[2018-12-02] MEDS: PROCHLORPERAZINE 10 MG/2 ML VIAL. IV PRN ×2 (15:05→15:47)
--- NOTE | 2018-12-02 15:11 | OP ---
DATE OF SURGERY: 12/02/2018 ATTENDING SURGEON: Krish Moy DO. GUEST SERVICES AMBASSADOR: Rae Mueller NP. PREOPERATIVE DIAGNOSIS: 1. Atherosclerosis with left lower extremity rest pain. 2. Active tobacco abuse. 3. Chronic obstructive pulmonary disease. 4. Hypertension. 5. Hyperlipidemia. 6. Coronary artery disease. POSTOPERATIVE DIAGNOSES: 1. Atherosclerosis with left lower extremity rest pain. 2. Active tobacco abuse. 3. Chronic obstructive pulmonary disease. 4. Hypertension. 5. Hyperlipidemia. 6. Coronary artery disease. PROCEDURE: 1. Left femoral to below knee popliteal artery bypass using in-situ greater saphenous vein graft. 2. Placement of a negative pressure VAC to the left groin wound using a Prevena KCI VAC. ANESTHESIA: General. SPECIMENS: None. ESTIMATED BLOOD LOSS: 100 mL. COMPLICATIONS: None. PREOPERATIVE INDICATIONS: The patient is a very pleasant 63-year-old female who is an active smoker, who has been receiving percutaneous superficial femoral artery treatments by Dr. Grigsby. The patient most recently had a long segment superficial femoral artery occlusion and occlusion of a previously placed popliteal stent. Dr. Grigsby contacted me and felt that a bypass would be her next best option. I did see her, she had already been appropriately risk stratified from a coronary standpoint and acceptable to proceed with bypass. I did perform vein mapping of her greater saphenous vein, which was usable for bypass. The patient was consented for the procedure, and she understood all risks, benefits, and alternatives of the procedure prior to proceeding with surgery. OPERATIVE PROCEDURE: The patient was brought to the operating suite and placed in supine position. After establishing invasive monitoring lines per anesthesia, the patient was induced under general endotracheal anesthesia. Following this, the patient was prepped and draped in sterile fashion. Following this, a timeout procedure was performed. It was confirmed that the patient did receive appropriate preoperative antibiotics and the correct operative site was marked and draped. Next, a left femoral incision was made, carried through skin and subcutaneous tissue. Dissection was carried down through the deep tissue using a LigaSure device. I was able to identify the common femoral artery, profunda femoral artery and a long segment of the superficial femoral artery and these were all dissected circumferentially and controlled with vessel loops. Any branches of the artery were also controlled with vessel loops. The common femoral artery was soft and she had a plaque noted at the origin of the superficial femoral artery, but the remainder of the vessel was soft with a palpable pulse. The superficial femoral artery occlusion was more distal in the vessel according to the angiogram. Following this, the greater saphenous vein was dissected at the saphenofemoral junction and this was circumferentially dissected at this location and any tributaries of the vein in this location were ligated with silk ligatures and divided. The vein appeared soft and healthy and usable for bypass. After I had mobilized an adequate length proximally, the vein was flushed with heparinized saline solution. At this point in time, I focused on the below knee incision where a below-knee incision was made, carried through the skin and subcutaneous tissue. Dissection was carefully carried down into the greater saphenous vein below the knee was identified. The greater saphenous vein was much smaller in this location and did have significant spasm; however, I felt that this would be suitable for bypass. This was circumferentially dissected in this area and any tributaries were ligated and divided with silk ligatures. After dissecting an adequate length of greater saphenous vein, then the deep fascia was entered and the popliteal space was entered. I was able to carefully identify the below-knee popliteal artery and this was circumferentially dissected both proximally and distally. The vessel was soft and healthy in this location. Following this, the patient was systemically heparinized and this was allowed to circulate for an appropriate circulation time. Our femoral vessels were all controlled including all the branches. A longitudinal arteriotomy was created in the superficial femoral artery and then extended into the common femoral artery to ensure that I had a long patch angioplasty since the superficial femoral artery would be our inflow vessel. Vein graft was appropriately prepared and then sewn to the superficial femoral artery using a 6-0 Prolene suture in a running fashion. Next, a bovine pericardial patch was used to close the common femoral artery and the arteriotomy onto the superficial femoral artery down to the level of our vein graft. This was sewn in place using 6-0 Prolene suture. Next, the vein graft and the bovine pericardial patch were joined in our suture line and the arteriotomy was completed. Prior to completing the arteriotomy completely, we did backbleed and flush our vessels appropriately and the arteriotomy was completed. Flow was next restored to the femoral vessels and the greater saphenous vein. One repair stitch was required, but otherwise we had excellent palpable pulsatile flow in the greater saphenous vein. Next, a moist antibiotic impregnated sponge was placed in the groin and the tension on our retractors was released. Following this, the distal aspect of the vein below the knee was ligated and then the vein was divided. Following this, a LeMaitre valvulotome was inserted up to the proximal anastomosis of the greater saphenous vein. Next, the valvulotome was retracted several times, lysing all the valves. We had excellent pulsatile flow through the vein after lysing the valves into the below-knee segment. Following this, our popliteal artery was controlled proximally and distally and then 11 blade scalpel was used to create an arteriotomy. This was extended using Lagunas scissors. Next, after extending the patient's knee and adjusting for our length, the vein graft was divided and then spatulated appropriately. Following this, an end-to-side anastomosis was sewn to the below-knee popliteal artery using 6-0 Prolene suture in a running fashion. Prior to completing the anastomosis, we did backbleed and flush our vessels appropriately and then, the anastomosis was completed and flow was restored. The patient had excellent palpable pulsatile flow into the below-knee popliteal artery and continuous palpable pulsatile flow through the vein graft. I also ensured that there was no soft tissue or tendons impeding on the flow of the bypass and the bypass tract down to the below-knee popliteal artery. We also confirmed excellent multiphasic Doppler flow through the anterior tibial artery and posterior tibial artery at the ankle. Satisfied with the results, the wounds were all copiously irrigated with antibiotic-impregnated solution and then Fibrillar was used over the raw surface area. After a correct lap, sponge, needle and instrument count, the deep layer and the femoral region was closed using 2-0 Monocryl suture followed by 3-0 Vicryl suture followed by 4-0 Monocryl for the skin followed by Mastisol and Steri-Strips. A 2-0 Vicryl, 3-0 Vicryl and 4-0 Monocryl was used to close the below knee incision in a subcuticular fashion. Dermabond was used for the below knee incision and a sterile dressing was placed after this dried. A Prevena negative pressure KCI VAC was placed on the common femoral location and placed to negative suction. Our Doppler signals were confirmed at the conclusion of the case and I was able to feel a palpable graft pulse at the level of the knee. The patient tolerated the procedure well and was transferred to the postanesthesia care unit in stable condition. KRISH MOY DO DR: LAURA/domitila JOB#: [id number] / [id number]
[2018-12-02] MEDS: IV NORMAL SALINE 1000ML BAG 1,000 ML IV SCH ×2 (16:26→17:38)
[2018-12-02] MEDS: ceFAZolin SODIUM 1 GM in IV DEXTROSE 5% 50 ML IV SCH ×2 (17:37→21:31)
[2018-12-02] MEDS: oxyCODONE IR 5 MG TABLET PO PRN (18:28)
[2018-12-02] MEDS: MORPHINE SULFATE 4 MG/ML VIAL. IV PRN (21:35)
[2018-12-03] VITALS (18 sets, daily range): BP systolic 97–151; BP diastolic 49–83
[2018-12-03] MEDS: oxyCODONE IR 5 MG TABLET PO PRN ×4 (00:41→21:00)
[2018-12-03] MEDS: ceFAZolin SODIUM 1 GM in IV DEXTROSE 5% 50 ML IV SCH (04:49)
[2018-12-03] MEDS: IV NORMAL SALINE 1000ML BAG 1,000 ML IV SCH ×2 (04:49→15:11)
[2018-12-03 06:33] LABS: BASO % 0 % (0-3); EOS % 0 % (0-3); HEMATOCRIT 35.5 % (36.0-47.0); HEMOGLOBIN 11.9 g/dL (12.0-15.5); LYMPH # 0.9 x10^3/uL (1.0-4.8); LYMPH % 11 % (24-48); MEAN CORPUSCULAR HEMOGLOBIN 31 pg (25-35); MEAN CORPUSCULAR HGB CONC 34 g/dL (31-37); MEAN CORPUSCULAR VOLUME 91 fL (79-100); MONO # 0.7 x10^3/uL (0.0-1.1); MONO % 9 % (0-9); NEUT # 6.9 x10^3uL (1.8-7.7); NEUT % 80 % (31-73); PLATELET COUNT 96 x10^3/uL (140-400); RED BLOOD COUNT 3.91 x10^6/uL (3.50-5.40); RED CELL DISTRIBUTION WIDTH 14.2 % (11.5-14.5); WHITE BLOOD COUNT 8.6 x10^3/uL (4.0-11.0)
[2018-12-03 06:51] LABS: CALCIUM 8.3 mg/dL (8.5-10.1); CREATININE 0.9 mg/dL (0.6-1.0); GFR 63.4; MAGNESIUM 1.9 mg/dL (1.8-2.4)
[2018-12-03] MEDS: IPRATRPIUM/ALBUTEROL 0.5/2.5MG 3 ML NEBU. NEB SCH ×3 (07:48→16:00)
[2018-12-03] MEDS: FUROSEMIDE 40 MG TABLET. PO SCH (08:08)
[2018-12-03] MEDS: SPIRONOLACTONE 25 MG TABLET PO SCH (08:08)
[2018-12-03] MEDS: METOPROLOL TART IMMED RELEASE 50 MG TABLET. PO SCH ×2 (08:09→20:59)
[2018-12-03] MEDS: PANTOPRAZOLE 40 MG TABLET.DR. PO SCH (08:09)
[2018-12-03] MEDS: NICOTINE 14MG PATCH. TD SCH (08:09)
[2018-12-03] MEDS: CLOPIDOGREL BISULFATE 75 MG TABLET PO SCH (08:09)
[2018-12-03] MEDS: ENOXAPARIN 40 MG/0.4 ML SYRINGE. SQ SCH (08:10)
[2018-12-03] MEDS ORDERED: NADOLOL PO SCH (09:00)
[2018-12-03] MEDS: VITAMIN E 200 UNIT CAPSULE. PO SCH (09:00)
[2018-12-03] MEDS: ELECTROLYTE (NON-ICU) PROTOCOL MC SCH (09:00)
--- NOTE | 2018-12-03 13:44 | NUR ---
SS following for discharge planning. SS reviewed pt chart. Pt is from home with spouse and is currently on room air. No discharge needs noted at this time. SS will continue to follow for pending discharge needs.
--- NOTE | 2018-12-03 15:37 | PDOC ---
SURGICAL PROGRESS NOTE Subjective She has incisional pain. She had urinary retention after palmer cath removed this am. Palmer replaced with 600ml out immediately. Vital Signs Vital Signs Date Time Temp Pulse Resp B/P (MAP) Pulse Ox O2 Delivery O2 Flow Rate FiO2 12/03/18 15:10 26 98 Room Air 12/03/18 15:00 75 112/54 (73) 12/03/18 12:00 98.1 98.1 12/02/18 17:00 2.0 I&O Intake and Output 12/03/18 07:00 Intake Total 3293 ml Output Total 1890 ml Balance 1403 ml Intake Oral 1010 ml IV Total 2283 ml Output Urine Total 1790 ml Estimated Blood Loss 100 ml General: Alert, mild distress Lungs: Normal air movement Heart: Regular rate Abdomen: Soft, No tenderness Extremities: Other (left leg dressings intact, good pulse in the left leg bypass, left foot warm) Assessment/Plan s/p Left fem-popliteal bypass Left toe ulcer Urinary retention Will transfer to floor. Saline lock IVF. Palmer replaced. Will start flomax, and remove palmer in AM. Increase activity as tolerated. SITA RIVERA MD Dec 03, 2018 15:37
[2018-12-03] MEDS ORDERED: IPRATRPIUM/ALBUTEROL 0.5/2.5MG 3 ML NEBU. NEB PRN (17:15)
[2018-12-03] MEDS: TAMSULOSIN 0.4 MG CAP.ER.24H. PO SCH (17:18)
--- NOTE | 2018-12-03 20:41 | NUR ---
Patient requesting her bed time dose of Lactulose that she takes regularly at home for her liver cirrhosis.
[2018-12-03] MEDS ORDERED: LACTULOSE 20 GM/30 ML SOLUTION. PO PRN (20:45)
[2018-12-03] MEDS: MORPHINE SULFATE 4 MG/ML VIAL. IV PRN (21:00)
[2018-12-04] MEDS: oxyCODONE IR 5 MG TABLET PO PRN ×4 (02:54→21:09)
[2018-12-04] MEDS: MORPHINE SULFATE 4 MG/ML VIAL. IV PRN (02:55)
[2018-12-04 03:25] VITALS: BP 107/49
[2018-12-04 07:28] VITALS: BP 105/52
[2018-12-04] MEDS: ELECTROLYTE (NON-ICU) PROTOCOL MC SCH (09:00)
[2018-12-04] MEDS: FUROSEMIDE 40 MG TABLET. PO SCH (09:02)
[2018-12-04] MEDS: VITAMIN E 200 UNIT CAPSULE. PO SCH (09:02)
[2018-12-04] MEDS: TAMSULOSIN 0.4 MG CAP.ER.24H. PO SCH (09:02)
[2018-12-04] MEDS: SPIRONOLACTONE 25 MG TABLET PO SCH (09:03)
[2018-12-04] MEDS: METOPROLOL TART IMMED RELEASE 50 MG TABLET. PO SCH ×2 (09:03→21:08)
[2018-12-04] MEDS: PANTOPRAZOLE 40 MG TABLET.DR. PO SCH (09:03)
[2018-12-04] MEDS: CLOPIDOGREL BISULFATE 75 MG TABLET PO SCH (09:04)
[2018-12-04] MEDS: NICOTINE 14MG PATCH. TD SCH (09:04)
[2018-12-04] MEDS: ENOXAPARIN 40 MG/0.4 ML SYRINGE. SQ SCH (09:05)
--- NOTE | 2018-12-04 10:24 | PDOC ---
Provider Note Provider Note Vascular S: Patient seen and examined in room. Patient sitting in chair. Patient continues to complain of left leg incisional pain. O: Awake and alert Heart rate regular Abdomen soft, nontender nondistended Left leg: groin incision with Prevena intact and functioning, dressing removed distal calf incision dry and intact. Doppler biphasic PT. foot warm, no swelling. A/P: POD #2 Left fem-popliteal bypass Left toe ulcer Urinary retention Doing well, pain management is an issue patient has chronic as well as acute pain, discussed with Nurse she will discuss with Primary Care to adjust pain medications to reflect home regimen. Stern replaced last p.m., discontinued this a.m. Flomax was started. Will monitor output. If patient able to void will not need to be on Flomax at discharge. Increase activity as tolerated. Provine a vacuum to remain in place until 12/09. RYANNE WAGONER APRN Dec 04, 2018 10:24
[2018-12-04 10:52] VITALS: BP 137/68
--- NOTE | 2018-12-04 12:39 | CONS ---
DATE OF CONSULTATION: 12/04/2018 CHIEF COMPLAINT: Postop left femoral popliteal bypass, request for medical evaluation and treatment of comorbidities. HISTORY OF PRESENT ILLNESS: The patient is a pleasant middle-aged white female who underwent a left fem-pop bypass. She has cirrhosis and chronic pain issues. She states she has had hep C for 30 years. States she has even been on palliative care at times and is on high dose narcotics. Yesterday, we have been asked to see her postoperatively for evaluation and treatment of comorbidities. PAST MEDICAL HISTORY: Cirrhosis, chronic pain, narcotic dependent, depression, anxiety, asthma, tobacco abuse, PVD, hypertension, metabolic encephalopathy, previous ascites and jaundice, but she states that has resolved, GERD. ALLERGIES: NSAIDS, LEVAQUIN AND ASPIRIN. FAMILY HISTORY: Coronary artery disease. SOCIAL HISTORY: She does not drink, smoke or take drugs. MEDICATIONS: Reviewed. She is on Combivent, Nicoderm, Plavix, nadolol, spironolactone, oxycodone, lactulose, Lasix, Zofran, omeprazole, vitamins. REVIEW OF SYSTEMS: GENERAL: No history of weight change, weakness or fevers. SKIN: No bruising, hair changes or rashes. EYES: No blurred, double or loss of vision. NOSE AND THROAT: No history of nosebleeds, hoarseness or sore throat. HEART: No history of palpitations, chest pain or shortness of breath on exertion. LUNGS: Denies cough, hemoptysis, wheezing or shortness of breath. GASTROINTESTINAL: Denies changes in appetite, nausea, vomiting, diarrhea or constipation. GENITOURINARY: No history of frequency, urgency, hesitancy or nocturia. NEUROLOGIC: Denies history of numbness, tingling, tremor or weakness. PSYCHIATRIC: No history of panic, anxiety or depression. ENDOCRINE: No history of heat or cold intolerance, polyuria or polydipsia. EXTREMITIES: She complains of pain. PHYSICAL EXAMINATION: VITAL SIGNS: Temperature is afebrile, pulse 80, respirations 18, blood pressure 137/80. GENERAL: She is alert, cooperative, complaining of pain. HEART: Normal S1, S2. LUNGS: Clear. ABDOMEN: Soft. EXTREMITIES: The left leg has clean, dry and intact incisions. ENDOCRINE: No thyromegaly. LYMPHATICS: No cervical nodes. HEMATOPOIETIC: No bruising. PSYCHIATRIC: She is a little depressed. LABORATORY DATA: Hematology is basically normal other than hemoglobin of 11.9. Electrolytes are normal. INR is 1.1. AST and ALT are normal. Albumin is normal. Nasal screen negative for MRSA. ASSESSMENT AND PLAN: Postoperative left femoral popliteal bypass in a middle-aged female with the above noted comorbidities. Clinically, she is doing quite well. We asked Steve Yusuf of the Pain Management Service to help us with her pain medications. She states she has had hepatitis C and cirrhosis for years, but her transaminases are normal, her INR is normal and her albumin is normal. I am not really clear as to why they could be normal when she has cirrhosis and was supposedly jaundice and headaches and severe ascites at one time. For now, that is a nonissue. We will follow closely. Continue wound care, PT, OT, home meds, frequent labs. Thank you very much for allowing us to participate in the care of this nice lady. STEPHON RAMOS DO DR: NANCY/domitila JOB#: [id number] / [id number] JACKIE Mistry DO
--- NOTE | 2018-12-04 14:02 | PDOC ---
SUBJECTIVE Subjective Chronic abdominal and back pain, and now left leg pain since surgery OBJECTIVE Objective 63yo female C/O left leg pain post op fem-pop bypass Chronic pain as well- low back, neck,abdominal Vital Signs Vital Signs Date Time Temp Pulse Resp B/P (MAP) Pulse Ox O2 Delivery O2 Flow Rate FiO2 12/04/18 10:52 98.1 83 18 137/68 (91) 96 Room Air 98.1 12/04/18 10:05 16 Room Air 12/04/18 09:05 16 Room Air 12/04/18 09:03 78 105/52 12/04/18 07:28 99.1 78 18 105/52 (69) 94 Room Air 99.1 12/04/18 03:54 92 12/04/18 03:25 99.2 77 18 107/49 (68) 92 Room Air 99.2 12/04/18 03:25 18 92 Room Air 12/04/18 02:55 18 95 Room Air 12/04/18 02:54 18 95 Room Air 12/03/18 23:10 98.3 78 18 118/63 (81) 95 Room Air 98.3 12/03/18 21:00 18 93 Room Air 12/03/18 21:00 18 93 Room Air 12/03/18 20:59 76 142/63 12/03/18 20:00 Room Air 12/03/18 19:25 98.4 76 18 142/63 (89) 93 Room Air 98.4 12/03/18 15:10 26 98 Room Air 12/03/18 15:00 75 34 112/54 (73) 96 Room Air 12/03/18 14:00 65 32 108/83 (91) 97 Room Air I & O Intake and Output 12/04/18 07:00 Intake Total 2700 ml Output Total 2100 ml Balance 600 ml Intake Oral 1600 ml IV Total 1100 ml Output Urine Total 2100 ml # Voids 1 PHYSICAL EXAM Physical Exam A&O, appropriate NCAT BS-CTA Heart s1,s2 clear LE- bandaged, recent lt fem-pop bypass ASSESSMENT/PLAN Assessment/Plan REC: consider restarting home meds- Oxycodone ER 20 mg q 12hrs, oxycodone 5mg 1 -2 q 4hrs prn Alternatively, fentanyl patch 50mcg q 72 hrs, instead of ER oxycodone, if pt. can tolerate OPAL MCALLISTER MD Dec 04, 2018 14:02
[2018-12-04 14:45] VITALS: BP 123/49
--- NOTE | 2018-12-04 15:00 | NUR ---
Patient bladder scan showed about 450cc. Orders received to straight cath patient. 500 cc's of ashok colored urine came out. Patient was then able to void 200cc's about 2 hours after straight cath.
[2018-12-04 19:00] VITALS: BP 98/48
--- NOTE | 2018-12-04 21:00 | PDOC ---
SURGICAL PROGRESS NOTE Subjective Patient was seen and examined at the bedside this evening and overall is doing well. She is out of bed ambulating and having appropriate incisional pain. Vital Signs Vital Signs Date Time Temp Pulse Resp B/P (MAP) Pulse Ox O2 Delivery O2 Flow Rate FiO2 12/04/18 19:00 98.0 84 18 98/48 (65) 96 Room Air 98.0 I&O Intake and Output 12/04/18 07:00 Intake Total 2700 ml Output Total 2100 ml Balance 600 ml Intake Oral 1600 ml IV Total 1100 ml Output Urine Total 2100 ml # Voids 1 Extremities: Other (incisions are clean, dry, and intact. She has a palpable bypass graft pulse) Labs Laboratory Tests Test 12/03/18 06:25 White Blood Count 8.6 x10^3/uL (4.0-11.0) Red Blood Count 3.91 x10^6/uL (3.50-5.40) Hemoglobin 11.9 g/dL (12.0-15.5) Hematocrit 35.5 % (36.0-47.0) Mean Corpuscular Volume 91 fL (79-100) Mean Corpuscular Hemoglobin 31 pg (25-35) Mean Corpuscular Hemoglobin Concent 34 g/dL (31-37) Red Cell Distribution Width 14.2 % (11.5-14.5) Platelet Count 96 x10^3/uL (140-400) Neutrophils (%) (Auto) 80 % (31-73) Lymphocytes (%) (Auto) 11 % (24-48) Monocytes (%) (Auto) 9 % (0-9) Eosinophils (%) (Auto) 0 % (0-3) Basophils (%) (Auto) 0 % (0-3) Neutrophils # (Auto) 6.9 x10^3uL (1.8-7.7) Lymphocytes # (Auto) 0.9 x10^3/uL (1.0-4.8) Monocytes # (Auto) 0.7 x10^3/uL (0.0-1.1) Eosinophils # (Auto) 0.0 x10^3/uL (0.0-0.7) Basophils # (Auto) 0.0 x10^3/uL (0.0-0.2) Sodium Level 140 mmol/L (136-145) Potassium Level 4.0 mmol/L (3.5-5.1) Chloride Level 104 mmol/L (98-107) Carbon Dioxide Level 26 mmol/L (21-32) Anion Gap 10 (6-14) Blood Urea Nitrogen 13 mg/dL (7-20) Creatinine 0.9 mg/dL (0.6-1.0) Estimated GFR (Cockcroft-Gault) 63.4 Glucose Level 113 mg/dL (70-99) Calcium Level 8.3 mg/dL (8.5-10.1) Magnesium Level 1.9 mg/dL (1.8-2.4) Assessment/Plan Atherosclerosis with rest pain--patient is doing well after a femoral to below- knee pop to artery bypass using in situ saphenous vein graft. We'll continue pain management and activity. Disposition planning tomorrow versus the next day based on how she is feeling. All questions were answered to her satisfaction tonlana. JACKIE MOY DO Dec 04, 2018 21:00
[2018-12-04 22:22] VITALS: BP 101/49
[2018-12-05 03:00] VITALS: BP 114/59
[2018-12-05] MEDS: oxyCODONE IR 5 MG TABLET PO PRN ×4 (03:01→23:46)
[2018-12-05] MEDS: MORPHINE SULFATE 4 MG/ML VIAL. IV PRN ×4 (03:01→21:14)
[2018-12-05 07:00] VITALS: BP 115/58
[2018-12-05] MEDS: TAMSULOSIN 0.4 MG CAP.ER.24H. PO SCH (09:00)
[2018-12-05] MEDS: ELECTROLYTE (NON-ICU) PROTOCOL MC SCH (09:00)
[2018-12-05] MEDS: FUROSEMIDE 40 MG TABLET. PO SCH (09:32)
[2018-12-05] MEDS: VITAMIN E 200 UNIT CAPSULE. PO SCH (09:32)
[2018-12-05] MEDS: PANTOPRAZOLE 40 MG TABLET.DR. PO SCH (09:33)
[2018-12-05] MEDS: SPIRONOLACTONE 25 MG TABLET PO SCH (09:34)
[2018-12-05] MEDS: ENOXAPARIN 40 MG/0.4 ML SYRINGE. SQ SCH (09:34)
[2018-12-05] MEDS: CLOPIDOGREL BISULFATE 75 MG TABLET PO SCH (09:34)
[2018-12-05] MEDS: METOPROLOL TART IMMED RELEASE 50 MG TABLET. PO SCH ×2 (09:35→21:14)
[2018-12-05] MEDS: NICOTINE 14MG PATCH. TD SCH (09:36)
--- NOTE | 2018-12-05 09:38 | NUR ---
Patient refused to take flomax this morning, states she believes it contributed to her bowel incontinence yesterday. Patient also requested to take off rook boot, stated it made her leg feel heavy and weak. Taken off for now.
--- NOTE | 2018-12-05 09:43 | PDOC ---
PROGRESS NOTES Chief Complaint Chief Complaint L leg pain s/p L femoral popliteal bypass Chronic pain issues History of Hepatitis C Reports history of cirrhosis History of Present Illness History of Present Illness Ms. Restrepo is a 63 yo female presenting with L leg pain s/p L femoral popliteal bypass and chronic pain issues with past medical history of cirrhosis. Today she is awake and resting comfortably in bed. She has no new complaints today. She was seen by pain management yesterday, she says pain has improved. Vitals Vitals Vital Signs Date Time Temp Pulse Resp B/P (MAP) Pulse Ox O2 Delivery O2 Flow Rate FiO2 12/05/18 07:00 97.4 77 16 115/58 (77) 97 Room Air 97.4 Physical Exam General: Alert, Oriented X3, Cooperative, No acute distress Heart: Regular rate, No murmurs Lungs: Clear Abdomen: Normal bowel sounds, Soft, No tenderness, No masses Extremities: No cyanosis, No edema, Other (incisions are clean, dry, and intact. She has a palpable bypass graft pulse) Skin: No rashes, No significant lesion Review of Systems Review of Systems Denies chest pain Denies shortness of breath Assessment and Plan Assessmemt and Plan Assessment: L leg pain s/p L femoral popliteal bypass Chronic pain issues History of Hepatitis C Reports history of cirrhosis Plan: Will follow SNU eval Follow PT/OT recommendations Continue home meds Continue wound care Appreciate pain management input Discharge disposition pending Comment Review of Relevant I have reviewed the following items jeff (where applicable) has been applied. Medications Current Medications Ondansetron HCl (Zofran) 4 mg PRN Q6HRS PRN IV NAUSEA/VOMITING; Start 12/02/18 at 07:00; Stop 12/03/18 at 06:59; Status DC Fentanyl Citrate (Fentanyl 2ml Vial) 25 mcg PRN Q5MIN PRN IV MILD PAIN; Start 12/02/18 at 07:00; Stop 12/02/18 at 18:41; Status DC Fentanyl Citrate (Fentanyl 2ml Vial) 50 mcg PRN Q5MIN PRN IV MODERATE TO SEVERE PAIN Last administered on 12/02/18at 13:50; Start 12/02/18 at 07:00; Stop at 18:41; Status DC Morphine Sulfate (Morphine Sulfate) 1 mg PRN Q10MIN PRN IV SEVERE PAIN Last administered on 12/02/18 14:12; Start 12/02/18 at 07:00; Stop 12/02/18 at 18:41; Status DC Ringer's Solution 1,000 ml @ 30 mls/hr Q24H IV Last administered on 12/02/18 08:40; Start 12/02/18 at 07:00; Stop 12/02/18 at 18:41; Status DC Lidocaine HCl (Xylocaine-Mpf 1% 2ml Vial) 2 ml PRN 1X PRN ID PRIOR TO IV START ; Start 12/02/18 at 07:00; Stop 12/03/18 at 06:59; Status DC Hydromorphone HCl (Dilaudid) 0.5 mg PRN Q10MIN PRN IV SEV PAIN, Second choice Last administered on 12/02/18 16:34; Start 12/02/18 at 07:00; Stop 12/02/18 at 18: 41; Status DC Prochlorperazine Edisylate (Compazine) 5 mg PACU PRN PRN IV NAUSEA, MRX1 Last administered on 12/02/18 15:47; Start 12/02/18 at 07:00; Stop 12/03/18 at 06:59; Status DC Heparin Sodium (Porcine) 5000 unit/Sodium Chloride 505 ml @ 505 mls/hr 1X ONCE IRR Last administered on 12/02/18 10:31; Start 12/02/18 at 06:00; Stop 12/02 at 07:00; Status DC Cefazolin Sodium 1 gm/Sodium Chloride 500 ml @ 500 mls/hr 1X ONCE IRR Last administered on 12/02/18 10:30; Start 12/02/18 at 06:00; Stop 12/02/18 at 07:00; Status DC Cefazolin Sodium/ Dextrose 50 ml @ 100 mls/hr 1X PREOP PRN IV PRIOR TO PROCEDURE Last administered on 12/02/18 10:02; Start 12/02/18 at 06:00; Stop 12/02 at 18:00; Status DC Iohexol (Omnipaque 300 Mg/ml) 100 ml STK-MED ONCE .ROUTE ; Start 12/02/18 at 09: 03; Stop 12/02/18 at 09:04; Status DC Thrombin 20,000 unit STK-MED ONCE TP ; Start 12/02/18 at 09:04; Stop 12/02/18 at 09:05; Status DC Gelatin (Gelfoam Size 12-7mm) 1 each STK-MED ONCE .ROUTE ; Start 12/02/18 at 09: 05; Stop 12/02/18 at 09:06; Status DC Cellulose (Surgicel Hemostat 4x8) 1 each STK-MED ONCE .ROUTE ; Start 12/02/18 at 09:05; Stop 12/02/18 at 09:06; Status DC Clopidogrel Bisulfate (Plavix) 75 mg DAILYWBKFT PO Last administered on at 09:04; Start 12/03/18 at 08:00 Furosemide (Lasix) 40 mg DAILY PO Last administered on 12/04/18at 09:02; Start at 11:00 Vitamin E 400 unit DAILY PO Last administered on 12/04/18at 09:02; Start 12/02/18 at 11:00 Non-Formulary Medication (Ipratropium/ Albuterol Sulfate (Combivent Respimat Inhal)) 1 inh QID IH ; Start 12/02/18 at 13:00; Status UNV Non-Formulary Medication (Nadolol ) 1 tab DAILY PO ; Start 12/03/18 at 09:00; Status UNV Nicotine (Nicoderm Cq 14mg) 1 patch DAILY TD Last administered on 12/04/18at 09: 04; Start 12/02/18 at 11:00 Pantoprazole Sodium (Protonix) 40 mg DAILYAC PO Last administered on 12/04/18at 09:03; Start 12/02/18 at 11:30 Non-Formulary Medication (Ondansetron Hcl (Zofran)) 8 mg BID PRN PO NAUSEA/ VOMITING; Start 12/02/18 at 09:15; Status UNV Oxycodone HCl (Roxicodone) 10 mg PRN Q6HRS PRN PO BREAKTHROUGH PAIN Last administered on 12/05/18at 03:01; Start 12/02/18 at 10:00 Oxycodone HCl (OxyCONTIN) 20 mg Q12HR PO ; Start 12/02/18 at 10:00; Stop 12/02/18 at 13:38; Status DC Spironolactone (Aldactone) 25 mg DAILY PO Last administered on 12/04/18at 09:03; Start 12/02/18 at 11:00 Fentanyl Citrate (Fentanyl 5ml Vial) 250 mcg STK-MED ONCE .ROUTE ; Start at 09:19; Stop 12/02/18 at 09:20; Status DC Midazolam HCl (Versed) 2 mg STK-MED ONCE .ROUTE ; Start 12/02/18 at 09:19; Stop 12/02/18 at 09:20; Status DC Rocuronium [place] (Zemuron) 50 mg STK-MED ONCE .ROUTE ; Start 12/02/18 at 09:19 ; Stop 12/02/18 at 09:20; Status DC Info (Non-Icu Electrolyte Protocol) 1 ea DAILY MC ; Start 12/03/18 at 09:00 Naloxone HCl (Narcan) 0.1 mg PRN Q2MIN PRN IV ADMIN; Start 12/02/18 at 09:15 Enoxaparin Sodium (Lovenox 40mg Syringe) 40 mg Q24H SQ Last administered on 12/04at 09:05; Start 12/03/18 at 09:00 Sodium Chloride (Normal Saline Flush) 3 ml QSHIFT PRN IV AFTER MEDS AND BLOOD DRAWS; Start 12/02/18 at 09:15 Sodium Chloride 1,000 ml @ 100 mls/hr Q10H IV Last administered on 12/03/18at 15 :11; Start 12/02/18 at 09:15; Stop 12/03/18 at 15:32; Status DC Morphine Sulfate (Morphine Sulfate) 2 mg PRN Q1HR PRN IV PAIN Last administered on 12/05/18at 03:01; Start 12/02/18 at 09:15 Docusate Sodium (Colace) 100 mg PRN BID PRN PO HARD STOOLS; Start 12/02/18 at 09 :15 Ondansetron HCl (Zofran) 4 mg PRN Q6HRS PRN IV NAUESA, 1ST CHOICE; Start at 09:15 Prochlorperazine Edisylate (Compazine) 5 mg PRN Q6HRS PRN IV N/V, 2nd Choice, MR X1; Start 12/02/18 at 09:15 Cefazolin Sodium 1 gm/Dextrose 50 ml @ 100 mls/hr Q6H IV Last administered on 12/03/18at 04:49; Start 12/02/18 at 16:00; Stop 12/03/18 at 04:29; Status DC Hydralazine HCl (Apresoline Inj) 5 mg PRN Q4HRS PRN IVP ELEVATED BP, SEE COMMENTS; Start 12/02/18 at 09:15 Labetalol HCl (Normodyne Iv Push) 10 mg PRN Q2HR PRN IVP HYPERTENSION, SEE COMMENTS; Start 12/02/18 at 09:15 Albuterol/ Ipratropium (Duoneb) 3 ml RTQID NEB Last administered on 12/03/18at 07 :48; Start 12/02/18 at 12:00; Stop 12/03/18 at 17:11; Status DC Metoprolol Tartrate (Lopressor) 50 mg BID PO Last administered on 12/04/18at 21: 08; Start 12/02/18 at 10:00 Heparin Sodium (Porcine) (Heparin Sodium) 10,000 unit STK-MED ONCE .ROUTE ; Start 12/02/18 at 10:13; Stop 12/02/18 at 10:14; Status DC Dexamethasone Sodium Phosphate (Decadron) 20 mg STK-MED ONCE .ROUTE ; Start 12/02 at 10:13; Stop 12/02/18 at 10:14; Status DC Ondansetron HCl (Zofran) 4 mg STK-MED ONCE .ROUTE ; Start 12/02/18 at 10:13; Stop 12/02/18 at 10:14; Status DC Propofol 20 ml @ As Directed STK-MED ONCE IV ; Start 12/02/18 at 10:13; Stop 12/02 at 10:14; Status DC Lidocaine HCl (Lidocaine Pf 2% Vial) 5 ml STK-MED ONCE .ROUTE ; Start 12/02/18 at 10:13; Stop 12/02/18 at 10:14; Status DC Cellulose (Surgicel Fibrillar 1x2) 1 each STK-MED ONCE .ROUTE ; Start 12/02/18 at 11:40; Stop 12/02/18 at 11:41; Status DC Cellulose (Surgicel Fibrillar 1x2) 1 each STK-MED ONCE SURGSITE Last administered on 12/02/18at 12:13; Start 12/02/18 at 12:13; Stop 12/02/18 at 12:14; Status DC Protamine Sulfate (Protamine) 50 mg STK-MED ONCE IV ; Start 12/02/18 at 13:03; Stop 12/02/18 at 13:04; Status DC Fentanyl Citrate (Fentanyl 2ml Vial) 100 mcg STK-MED ONCE .ROUTE ; Start at 13:39; Stop 12/02/18 at 18:41; Status DC Prochlorperazine Edisylate (Compazine) 10 mg STK-MED ONCE .ROUTE ; Start at 13:39; Stop 12/02/18 at 13:40; Status DC Clopidogrel Bisulfate (Plavix) 75 mg 1X ONCE PO Last administered on 12/02/18at 16:27; Start 12/02/18 at 13:45; Stop 12/02/18 at 13:47; Status DC Morphine Sulfate (Morphine Sulfate) 2 mg STK-MED ONCE .ROUTE ; Start 12/02/18 at 14:11; Stop 12/02/18 at 14:12; Status DC Hydromorphone HCl (Dilaudid) 2 mg STK-MED ONCE .ROUTE ; Start 12/02/18 at 14:26; Stop 12/02/18 at 18:41; Status DC Hydromorphone HCl (Dilaudid) 2 mg STK-MED ONCE .ROUTE ; Start 12/02/18 at 15:42; Stop 12/02/18 at 18:41; Status DC Tamsulosin HCl (Flomax) 0.4 mg DAILY PO Last administered on 12/04/18at 09:02; Start 12/03/18 at 17:00 Albuterol/ Ipratropium (Duoneb) 3 ml PRN QID PRN NEB COUGH; Start 12/03/18 at 17 :15 Lactulose (Lactulose) 20 gm PRN DAILY PRN PO CONSTIPATION Last administered on 12/03/18at 21:00; Start 12/03/18 at 20:45 Active Scripts Active Clopidogrel (Clopidogrel Bisulfate) 75 Mg Tablet 75 Mg PO DAILYWBKFT 90 Days Combivent Respimat Inhal (Ipratropium/Albuterol Sulfate) 4 Gm Aer.w.adap 1 Inh IH QID Reported Oxycodone Hcl 5 Mg Capsule 10 Mg PO PRN Q6HRS PRN Spironolactone 25 Mg Tablet 1 Tab PO DAILY Omeprazole 40 Mg Capsule.dr 1 Cap PO DAILY NICODERM CQ 14mg (Nicotine) 1 Each Patch.td24 1 Patch TP DAILY Lactulose 20 Gm/30 Ml Solution 20 Gm PO DAILY Oxycontin (Oxycodone HCl) 20 Mg Tab.er.12h 20 Mg PO BID Vitamin E 200 Unit Capsule 400 Unit PO DAILY Vitamin D3 (Cholecalciferol (Vitamin D3)) 2,000 Unit Capsule 2,000 Unit PO DAILY Zofran (Ondansetron Hcl) 8 Mg Tablet 8 Mg PO BID PRN Nadolol 40 Mg Tablet 1 Tab PO DAILY Furosemide 40 Mg Tablet 1 Tab PO DAILY Vitals/I & O Vital Sign - Last 24 Hours 12/04/18 12/04/18 12/04/18 12/04/18 10:52 14:45 14:58 15:58 Temp 98.1 97.4 98.1 97.4 Pulse 83 77 Resp 18 18 18 16 B/P (MAP) 137/68 (91) 123/49 (73) Pulse Ox 96 97 O2 Delivery Room Air Room Air Room Air Room Air 12/04/18 12/04/18 12/04/18 12/04/18 19:00 20:00 21:08 21:09 Temp 98.0 98.0 Pulse 84 84 Resp 18 B/P (MAP) 98/48 (65) 98/48 Pulse Ox 96 O2 Delivery Room Air Room Air Room Air 12/04/18 12/05/18 12/05/18 22:22 03:00 07:00 Temp 98.3 98.2 97.4 98.3 98.2 97.4 Pulse 80 76 77 Resp 18 18 16 B/P (MAP) 101/49 (66) 114/59 (77) 115/58 (77) Pulse Ox 97 100 97 O2 Delivery Room Air Room Air Room Air Intake and Output 12/04/18 12/04/18 12/05/18 15:00 23:00 07:00 Intake Total 600 ml 0 ml Output Total 700 ml 400 ml Balance 600 ml -700 ml -400 ml STEPHON RAMOS III DO Dec 05, 2018 09:43
--- NOTE | 2018-12-05 10:55 | PDOC ---
PROGRESS NOTES Subjective Subjective Pt doing well. Complaint of mild left groin and foot pain. Reports its controlled "ok". Pt takes heavy chronic pain medicine at home consisting of oxycontin and oxycodone chronically. She is getting oxycodone here and morphine for breakthrough acute pain. She does not appear in distress. Got out of bed yesterday a couple times, only worked with PT once. Good intake and output. Had some diarrhea yesterday, but none last night or today. Objective Objective Vital Signs Date Time Temp Pulse Resp B/P (MAP) Pulse Ox O2 Delivery O2 Flow Rate FiO2 12/05/18 09:36 20 12/05/18 09:35 82 110/53 12/05/18 07:00 97.4 97 Room Air 97.4 12/02/18 17:00 2.0 Intake and Output 12/05/18 07:00 Intake Total 600 ml Output Total 1100 ml Balance -500 ml Intake Oral 600 ml Output Urine Total 1100 ml # Voids 1 # Bowel Movements 4 Physical Exam Physical Exam VSS, afebrile Awake, alert and INAD Respirations non labored Left groin with prevena vac in place, mild erythema, ecchymosis and swelling medially. Mild tenderness to palpation. Left leg incision clean, dry and intact Palpable bypass graft pulse, strong doppler to left DP and PT. Foot warm. Plan Plan of Care POD#3 of left fem-below knee pop bypass - bypass patent - pain control still an issue, pt on heavy chronic pain medication on home regimen. Acute pain treated with Morphine, she reports this helps. Clinically does not appear in pain. Will defer chronic pain to hospitalist, continue acute pain management with morphine. - Up out of bed 3 times today, work with PT, assess need for walker at home. - Flomax started yesterday, good output. Pt will not require at discharge. - Prevena vac in place until 12/09 - Depending on activity and PT eval, pt can likely go home tomorrow. - continue plavix Comment Review of Relevant I have reviewed the following items jeff (where applicable) has been applied. Medications Current Medications Ondansetron HCl (Zofran) 4 mg PRN Q6HRS PRN IV NAUSEA/VOMITING; Start 12/02/18 at 07:00; Stop 12/03/18 at 06:59; Status DC Fentanyl Citrate (Fentanyl 2ml Vial) 25 mcg PRN Q5MIN PRN IV MILD PAIN; Start 12/02/18 at 07:00; Stop 12/02/18 at 18:41; Status DC Fentanyl Citrate (Fentanyl 2ml Vial) 50 mcg PRN Q5MIN PRN IV MODERATE TO SEVERE PAIN Last administered on 12/02/18at 13:50; Start 12/02/18 at 07:00; Stop at 18:41; Status DC Morphine Sulfate (Morphine Sulfate) 1 mg PRN Q10MIN PRN IV SEVERE PAIN Last administered on 12/02/18 14:12; Start 12/02/18 at 07:00; Stop 12/02/18 at 18:41; Status DC Ringer's Solution 1,000 ml @ 30 mls/hr Q24H IV Last administered on 12/02/18 08:40; Start 12/02/18 at 07:00; Stop 12/02/18 at 18:41; Status DC Lidocaine HCl (Xylocaine-Mpf 1% 2ml Vial) 2 ml PRN 1X PRN ID PRIOR TO IV START ; Start 12/02/18 at 07:00; Stop 12/03/18 at 06:59; Status DC Hydromorphone HCl (Dilaudid) 0.5 mg PRN Q10MIN PRN IV SEV PAIN, Second choice Last administered on 12/02/18 16:34; Start 12/02/18 at 07:00; Stop 12/02/18 at 18: 41; Status DC Prochlorperazine Edisylate (Compazine) 5 mg PACU PRN PRN IV NAUSEA, MRX1 Last administered on 12/02/18at 15:47; Start 12/02/18 at 07:00; Stop 12/03/18 at 06:59; Status DC Heparin Sodium (Porcine) 5000 unit/Sodium Chloride 505 ml @ 505 mls/hr 1X ONCE IRR Last administered on 12/02/18 10:31; Start 12/02/18 at 06:00; Stop 12/02 at 07:00; Status DC Cefazolin Sodium 1 gm/Sodium Chloride 500 ml @ 500 mls/hr 1X ONCE IRR Last administered on 12/02/18 10:30; Start 12/02/18 at 06:00; Stop 12/02/18 at 07:00; Status DC Cefazolin Sodium/ Dextrose 50 ml @ 100 mls/hr 1X PREOP PRN IV PRIOR TO PROCEDURE Last administered on 12/02/18at 10:02; Start 12/02/18 at 06:00; Stop 12/02 at 18:00; Status DC Iohexol (Omnipaque 300 Mg/ml) 100 ml STK-MED ONCE .ROUTE ; Start 12/02/18 at 09: 03; Stop 12/02/18 at 09:04; Status DC Thrombin 20,000 unit STK-MED ONCE TP ; Start 12/02/18 at 09:04; Stop 12/02/18 at 09:05; Status DC Gelatin (Gelfoam Size 12-7mm) 1 each STK-MED ONCE .ROUTE ; Start 12/02/18 at 09: 05; Stop 12/02/18 at 09:06; Status DC Cellulose (Surgicel Hemostat 4x8) 1 each STK-MED ONCE .ROUTE ; Start 12/02/18 at 09:05; Stop 12/02/18 at 09:06; Status DC Clopidogrel Bisulfate (Plavix) 75 mg DAILYWBKFT PO Last administered on 09:34; Start 12/03/18 at 08:00 Furosemide (Lasix) 40 mg DAILY PO Last administered on 12/05/18 09:32; Start at 11:00 Vitamin E 400 unit DAILY PO Last administered on 12/05/18 09:32; Start 12/02/18 at 11:00 Non-Formulary Medication (Ipratropium/ Albuterol Sulfate (Combivent Respimat Inhal)) 1 inh QID IH ; Start 12/02/18 at 13:00; Status UNV Non-Formulary Medication (Nadolol ) 1 tab DAILY PO ; Start 12/03/18 at 09:00; Status UNV Nicotine (Nicoderm Cq 14mg) 1 patch DAILY TD Last administered on 12/05/18 09: 36; Start 12/02/18 at 11:00 Pantoprazole Sodium (Protonix) 40 mg DAILYAC PO Last administered on 12/05/18 09:33; Start 12/02/18 at 11:30 Non-Formulary Medication (Ondansetron Hcl (Zofran)) 8 mg BID PRN PO NAUSEA/ VOMITING; Start 12/02/18 at 09:15; Status UNV Oxycodone HCl (Roxicodone) 10 mg PRN Q6HRS PRN PO BREAKTHROUGH PAIN Last administered on 12/05/18 09:36; Start 12/02/18 at 10:00 Oxycodone HCl (OxyCONTIN) 20 mg Q12HR PO ; Start 12/02/18 at 10:00; Stop 12/02/18 at 13:38; Status DC Spironolactone (Aldactone) 25 mg DAILY PO Last administered on 12/05/18 09:34; Start 12/02/18 at 11:00 Fentanyl Citrate (Fentanyl 5ml Vial) 250 mcg STK-MED ONCE .ROUTE ; Start at 09:19; Stop 12/02/18 at 09:20; Status DC Midazolam HCl (Versed) 2 mg STK-MED ONCE .ROUTE ; Start 12/02/18 at 09:19; Stop 12/02/18 at 09:20; Status DC Rocuronium [place] (Zemuron) 50 mg STK-MED ONCE .ROUTE ; Start 12/02/18 at 09:19 ; Stop 12/02/18 at 09:20; Status DC Info (Non-Icu Electrolyte Protocol) 1 ea DAILY MC ; Start 12/03/18 at 09:00 Naloxone HCl (Narcan) 0.1 mg PRN Q2MIN PRN IV ADMIN; Start 12/02/18 at 09:15 Enoxaparin Sodium (Lovenox 40mg Syringe) 40 mg Q24H SQ Last administered on 12/05 09:34; Start 12/03/18 at 09:00 Sodium Chloride (Normal Saline Flush) 3 ml QSHIFT PRN IV AFTER MEDS AND BLOOD DRAWS; Start 12/02/18 at 09:15 Sodium Chloride 1,000 ml @ 100 mls/hr Q10H IV Last administered on 12/03/18at 15 :11; Start 12/02/18 at 09:15; Stop 12/03/18 at 15:32; Status DC Morphine Sulfate (Morphine Sulfate) 2 mg PRN Q1HR PRN IV PAIN Last administered on 12/05/18 03:01; Start 12/02/18 at 09:15 Docusate Sodium (Colace) 100 mg PRN BID PRN PO HARD STOOLS; Start 12/02/18 at 09 :15 Ondansetron HCl (Zofran) 4 mg PRN Q6HRS PRN IV NAUESA, 1ST CHOICE; Start at 09:15 Prochlorperazine Edisylate (Compazine) 5 mg PRN Q6HRS PRN IV N/V, 2nd Choice, MR X1; Start 12/02/18 at 09:15 Cefazolin Sodium 1 gm/Dextrose 50 ml @ 100 mls/hr Q6H IV Last administered on 12/03/18at 04:49; Start 12/02/18 at 16:00; Stop 12/03/18 at 04:29; Status DC Hydralazine HCl (Apresoline Inj) 5 mg PRN Q4HRS PRN IVP ELEVATED BP, SEE COMMENTS; Start 12/02/18 at 09:15 Labetalol HCl (Normodyne Iv Push) 10 mg PRN Q2HR PRN IVP HYPERTENSION, SEE COMMENTS; Start 12/02/18 at 09:15 Albuterol/ Ipratropium (Duoneb) 3 ml RTQID NEB Last administered on 12/03/18at 07 :48; Start 12/02/18 at 12:00; Stop 12/03/18 at 17:11; Status DC Metoprolol Tartrate (Lopressor) 50 mg BID PO Last administered on 12/05/18at 09: 35; Start 12/02/18 at 10:00 Heparin Sodium (Porcine) (Heparin Sodium) 10,000 unit STK-MED ONCE .ROUTE ; Start 12/02/18 at 10:13; Stop 12/02/18 at 10:14; Status DC Dexamethasone Sodium Phosphate (Decadron) 20 mg STK-MED ONCE .ROUTE ; Start 12/02 at 10:13; Stop 12/02/18 at 10:14; Status DC Ondansetron HCl (Zofran) 4 mg STK-MED ONCE .ROUTE ; Start 12/02/18 at 10:13; Stop 12/02/18 at 10:14; Status DC Propofol 20 ml @ As Directed STK-MED ONCE IV ; Start 12/02/18 at 10:13; Stop 12/02 at 10:14; Status DC Lidocaine HCl (Lidocaine Pf 2% Vial) 5 ml STK-MED ONCE .ROUTE ; Start 12/02/18 at 10:13; Stop 12/02/18 at 10:14; Status DC Cellulose (Surgicel Fibrillar 1x2) 1 each STK-MED ONCE .ROUTE ; Start 12/02/18 at 11:40; Stop 12/02/18 at 11:41; Status DC Cellulose (Surgicel Fibrillar 1x2) 1 each STK-MED ONCE SURGSITE Last administered on 12/02/18at 12:13; Start 12/02/18 at 12:13; Stop 12/02/18 at 12:14; Status DC Protamine Sulfate (Protamine) 50 mg STK-MED ONCE IV ; Start 12/02/18 at 13:03; Stop 12/02/18 at 13:04; Status DC Fentanyl Citrate (Fentanyl 2ml Vial) 100 mcg STK-MED ONCE .ROUTE ; Start at 13:39; Stop 12/02/18 at 18:41; Status DC Prochlorperazine Edisylate (Compazine) 10 mg STK-MED ONCE .ROUTE ; Start at 13:39; Stop 12/02/18 at 13:40; Status DC Clopidogrel Bisulfate (Plavix) 75 mg 1X ONCE PO Last administered on 12/02/18at 16:27; Start 12/02/18 at 13:45; Stop 12/02/18 at 13:47; Status DC Morphine Sulfate (Morphine Sulfate) 2 mg STK-MED ONCE .ROUTE ; Start 12/02/18 at 14:11; Stop 12/02/18 at 14:12; Status DC Hydromorphone HCl (Dilaudid) 2 mg STK-MED ONCE .ROUTE ; Start 12/02/18 at 14:26; Stop 12/02/18 at 18:41; Status DC Hydromorphone HCl (Dilaudid) 2 mg STK-MED ONCE .ROUTE ; Start 12/02/18 at 15:42; Stop 12/02/18 at 18:41; Status DC Tamsulosin HCl (Flomax) 0.4 mg DAILY PO Last administered on 12/04/18at 09:02; Start 12/03/18 at 17:00 Albuterol/ Ipratropium (Duoneb) 3 ml PRN QID PRN NEB COUGH; Start 12/03/18 at 17 :15 Lactulose (Lactulose) 20 gm PRN DAILY PRN PO CONSTIPATION Last administered on 12/03/18at 21:00; Start 12/03/18 at 20:45 Active Scripts Active Clopidogrel (Clopidogrel Bisulfate) 75 Mg Tablet 75 Mg PO DAILYWBKFT 90 Days Combivent Respimat Inhal (Ipratropium/Albuterol Sulfate) 4 Gm Aer.w.adap 1 Inh IH QID Reported Oxycodone Hcl 5 Mg Capsule 10 Mg PO PRN Q6HRS PRN Spironolactone 25 Mg Tablet 1 Tab PO DAILY Omeprazole 40 Mg Capsule.dr 1 Cap PO DAILY NICODERM CQ 14mg (Nicotine) 1 Each Patch.td24 1 Patch TP DAILY Lactulose 20 Gm/30 Ml Solution 20 Gm PO DAILY Oxycontin (Oxycodone HCl) 20 Mg Tab.er.12h 20 Mg PO BID Vitamin E 200 Unit Capsule 400 Unit PO DAILY Vitamin D3 (Cholecalciferol (Vitamin D3)) 2,000 Unit Capsule 2,000 Unit PO DAILY Zofran (Ondansetron Hcl) 8 Mg Tablet 8 Mg PO BID PRN Nadolol 40 Mg Tablet 1 Tab PO DAILY Furosemide 40 Mg Tablet 1 Tab PO DAILY Vitals/I & O Vital Sign - Last 24 Hours 12/04/18 12/04/18 12/04/18 12/04/18 10:52 14:45 14:58 15:58 Temp 98.1 97.4 98.1 97.4 Pulse 83 77 Resp 18 18 18 16 B/P (MAP) 137/68 (91) 123/49 (73) Pulse Ox 96 97 O2 Delivery Room Air Room Air Room Air Room Air 12/04/18 12/04/18 12/04/18 12/04/18 19:00 20:00 21:08 21:09 Temp 98.0 98.0 Pulse 84 84 Resp 18 B/P (MAP) 98/48 (65) 98/48 Pulse Ox 96 O2 Delivery Room Air Room Air Room Air 12/04/18 12/05/18 12/05/18 12/05/18 22:22 03:00 07:00 09:35 Temp 98.3 98.2 97.4 98.3 98.2 97.4 Pulse 80 76 77 82 Resp 18 18 16 B/P (MAP) 101/49 (66) 114/59 (77) 115/58 (77) 110/53 Pulse Ox 97 100 97 O2 Delivery Room Air Room Air Room Air 12/05/18 09:36 Resp 20 Intake and Output 12/04/18 12/04/18 12/05/18 15:00 23:00 07:00 Intake Total 600 ml 0 ml Output Total 700 ml 400 ml Balance 600 ml -700 ml -400 ml JOSLYN IGNACIO Dec 05, 2018 10:55
[2018-12-05 11:00] VITALS: BP 105/57
--- NOTE | 2018-12-05 14:32 | NUR ---
SS following up with discharge planning. SS met with pt in room to discuss discharge planning and snf unit vs. home healthcare. Pt requested that SS send referral to [facility] for screening and if denied would go home with home healthcare. Pt reported that she did feel as if she needed rehab. event planner, Symone Cook, notified PT and OT of snf request. PT and OT reported that they will see pt this afternoon. Referral to [facility] will be sent once PT/OT notes have been received. Pt's RN notified.
[2018-12-05 15:00] VITALS: BP 95/50
[2018-12-05 19:41] VITALS: BP 103/49
[2018-12-05 22:16] VITALS: BP 92/48
[2018-12-06] VITALS (9 sets, daily range): BP systolic 90–100; BP diastolic 45–53
[2018-12-06] MEDS: MORPHINE SULFATE 4 MG/ML VIAL. IV PRN (00:47)
[2018-12-06] MEDS: oxyCODONE IR 5 MG TABLET PO PRN ×2 (05:56→18:04)
[2018-12-06] MEDS: METOPROLOL TART IMMED RELEASE 50 MG TABLET. PO SCH ×2 (09:00→21:00)
[2018-12-06] MEDS: TAMSULOSIN 0.4 MG CAP.ER.24H. PO SCH (09:00)
[2018-12-06] MEDS: ELECTROLYTE (NON-ICU) PROTOCOL MC SCH (09:00)
[2018-12-06] MEDS: PANTOPRAZOLE 40 MG TABLET.DR. PO SCH (09:13)
[2018-12-06] MEDS: VITAMIN E 200 UNIT CAPSULE. PO SCH (09:13)
[2018-12-06] MEDS: CLOPIDOGREL BISULFATE 75 MG TABLET PO SCH (09:13)
[2018-12-06] MEDS: NICOTINE 14MG PATCH. TD SCH (09:16)
[2018-12-06] MEDS: ENOXAPARIN 40 MG/0.4 ML SYRINGE. SQ SCH (09:16)
[2018-12-06] MEDS: oxyCODONE ER 10 MG TAB.ER.12H PO SCH ×2 (10:02→20:54)
--- NOTE | 2018-12-06 11:01 | PDOC ---
PROGRESS NOTES Chief Complaint Chief Complaint L leg pain s/p L femoral popliteal bypass Chronic pain issues History of Hepatitis C Reports history of cirrhosis History of Present Illness History of Present Illness Ms. Restrepo is a 63 yo female presenting with L leg pain s/p L femoral popliteal bypass and chronic pain issues with past medical history of cirrhosis. She was seen and examined in bed today with RN and RN student at bedside checking DP and PT pulses on RLE She complained of some tenderness medial to her wound vac on ant R hip NAD, reports fair pain control Vitals Vitals Vital Signs Date Time Temp Pulse Resp B/P (MAP) Pulse Ox O2 Delivery O2 Flow Rate FiO2 12/06/18 10:02 20 12/06/18 09:59 100/51 (67) 12/06/18 07:00 97.9 80 96 Room Air 97.9 Physical Exam General: Alert, Oriented X3, Cooperative, No acute distress Heart: Regular rate, No murmurs Lungs: Clear Abdomen: Normal bowel sounds, Soft, No tenderness, No masses Extremities: No cyanosis, No edema, Other (incisions are clean, dry, and intact. She has a palpable bypass graft pulse) Skin: No rashes, No significant lesion Review of Systems Review of Systems Pt reports tenderness medial to R ant hip wound vac Pt denies CP, SOB, SIMPSON, n/v Assessment and Plan Assessmemt and Plan Assessment: L leg pain s/p L femoral popliteal bypass Chronic pain issues History of Hepatitis C Reports history of cirrhosis Plan: SNU eval in progress for D/C planning Follow PT/OT recommendations Continue home meds Continue wound care Appreciate pain management input Discharge disposition pending Comment Review of Relevant I have reviewed the following items jeff (where applicable) has been applied. Medications Current Medications Ondansetron HCl (Zofran) 4 mg PRN Q6HRS PRN IV NAUSEA/VOMITING; Start 12/02/18 at 07:00; Stop 12/03/18 at 06:59; Status DC Fentanyl Citrate (Fentanyl 2ml Vial) 25 mcg PRN Q5MIN PRN IV MILD PAIN; Start 12/02/18 at 07:00; Stop 12/02/18 at 18:41; Status DC Fentanyl Citrate (Fentanyl 2ml Vial) 50 mcg PRN Q5MIN PRN IV MODERATE TO SEVERE PAIN Last administered on 12/02/18at 13:50; Start 12/02/18 at 07:00; Stop at 18:41; Status DC Morphine Sulfate (Morphine Sulfate) 1 mg PRN Q10MIN PRN IV SEVERE PAIN Last administered on 12/02/18at 14:12; Start 12/02/18 at 07:00; Stop 12/02/18 at 18:41; Status DC Ringer's Solution 1,000 ml @ 30 mls/hr Q24H IV Last administered on 12/02/18at 08:40; Start 12/02/18 at 07:00; Stop 12/02/18 at 18:41; Status DC Lidocaine HCl (Xylocaine-Mpf 1% 2ml Vial) 2 ml PRN 1X PRN ID PRIOR TO IV START ; Start 12/02/18 at 07:00; Stop 12/03/18 at 06:59; Status DC Hydromorphone HCl (Dilaudid) 0.5 mg PRN Q10MIN PRN IV SEV PAIN, Second choice Last administered on 12/02/18at 16:34; Start 12/02/18 at 07:00; Stop 12/02/18 at 18: 41; Status DC Prochlorperazine Edisylate (Compazine) 5 mg PACU PRN PRN IV NAUSEA, MRX1 Last administered on 12/02/18at 15:47; Start 12/02/18 at 07:00; Stop 12/03/18 at 06:59; Status DC Heparin Sodium (Porcine) 5000 unit/Sodium Chloride 505 ml @ 505 mls/hr 1X ONCE IRR Last administered on 12/02/18 10:31; Start 12/02/18 at 06:00; Stop 12/02 at 07:00; Status DC Cefazolin Sodium 1 gm/Sodium Chloride 500 ml @ 500 mls/hr 1X ONCE IRR Last administered on 12/02/18at 10:30; Start 12/02/18 at 06:00; Stop 12/02/18 at 07:00; Status DC Cefazolin Sodium/ Dextrose 50 ml @ 100 mls/hr 1X PREOP PRN IV PRIOR TO PROCEDURE Last administered on 12/02/18at 10:02; Start 12/02/18 at 06:00; Stop 12/02 at 18:00; Status DC Iohexol (Omnipaque 300 Mg/ml) 100 ml STK-MED ONCE .ROUTE ; Start 12/02/18 at 09: 03; Stop 12/02/18 at 09:04; Status DC Thrombin 20,000 unit STK-MED ONCE TP ; Start 12/02/18 at 09:04; Stop 12/02/18 at 09:05; Status DC Gelatin (Gelfoam Size 12-7mm) 1 each STK-MED ONCE .ROUTE ; Start 12/02/18 at 09: 05; Stop 12/02/18 at 09:06; Status DC Cellulose (Surgicel Hemostat 4x8) 1 each STK-MED ONCE .ROUTE ; Start 12/02/18 at 09:05; Stop 12/02/18 at 09:06; Status DC Clopidogrel Bisulfate (Plavix) 75 mg DAILYWBKFT PO Last administered on 09:13; Start 12/03/18 at 08:00 Furosemide (Lasix) 40 mg DAILY PO Last administered on 12/05/18at 09:32; Start at 11:00 Vitamin E 400 unit DAILY PO Last administered on 12/06/18 09:13; Start 12/02/18 at 11:00 Non-Formulary Medication (Ipratropium/ Albuterol Sulfate (Combivent Respimat Inhal)) 1 inh QID IH ; Start 12/02/18 at 13:00; Status UNV Non-Formulary Medication (Nadolol ) 1 tab DAILY PO ; Start 12/03/18 at 09:00; Status UNV Nicotine (Nicoderm Cq 14mg) 1 patch DAILY TD Last administered on 12/06/18 09: 16; Start 12/02/18 at 11:00 Pantoprazole Sodium (Protonix) 40 mg DAILYAC PO Last administered on 12/06/18 09:13; Start 12/02/18 at 11:30 Non-Formulary Medication (Ondansetron Hcl (Zofran)) 8 mg BID PRN PO NAUSEA/ VOMITING; Start 12/02/18 at 09:15; Status UNV Oxycodone HCl (Roxicodone) 10 mg PRN Q6HRS PRN PO BREAKTHROUGH PAIN Last administered on 12/06/18 05:56; Start 12/02/18 at 10:00 Oxycodone HCl (OxyCONTIN) 20 mg Q12HR PO ; Start 12/02/18 at 10:00; Stop 12/02/18 at 13:38; Status DC Spironolactone (Aldactone) 25 mg DAILY PO Last administered on 12/05/18at 09:34; Start 12/02/18 at 11:00 Fentanyl Citrate (Fentanyl 5ml Vial) 250 mcg STK-MED ONCE .ROUTE ; Start at 09:19; Stop 12/02/18 at 09:20; Status DC Midazolam HCl (Versed) 2 mg STK-MED ONCE .ROUTE ; Start 12/02/18 at 09:19; Stop 12/02/18 at 09:20; Status DC Rocuronium Jennings (Zemuron) 50 mg STK-MED ONCE .ROUTE ; Start 12/02/18 at 09:19 ; Stop 12/02/18 at 09:20; Status DC Info (Non-Icu Electrolyte Protocol) 1 ea DAILY MC ; Start 12/03/18 at 09:00 Naloxone HCl (Narcan) 0.1 mg PRN Q2MIN PRN IV ADMIN; Start 12/02/18 at 09:15 Enoxaparin Sodium (Lovenox 40mg Syringe) 40 mg Q24H SQ Last administered on 12/06at 09:16; Start 12/03/18 at 09:00 Sodium Chloride (Normal Saline Flush) 3 ml QSHIFT PRN IV AFTER MEDS AND BLOOD DRAWS; Start 12/02/18 at 09:15 Sodium Chloride 1,000 ml @ 100 mls/hr Q10H IV Last administered on 12/03/18at 15 :11; Start 12/02/18 at 09:15; Stop 12/03/18 at 15:32; Status DC Morphine Sulfate (Morphine Sulfate) 2 mg PRN Q1HR PRN IV PAIN Last administered on 12/06/18at 00:47; Start 12/02/18 at 09:15 Docusate Sodium (Colace) 100 mg PRN BID PRN PO HARD STOOLS; Start 12/02/18 at 09 :15 Ondansetron HCl (Zofran) 4 mg PRN Q6HRS PRN IV NAUESA, 1ST CHOICE; Start at 09:15 Prochlorperazine Edisylate (Compazine) 5 mg PRN Q6HRS PRN IV N/V, 2nd Choice, MR X1; Start 12/02/18 at 09:15 Cefazolin Sodium 1 gm/Dextrose 50 ml @ 100 mls/hr Q6H IV Last administered on 12/03/18at 04:49; Start 12/02/18 at 16:00; Stop 12/03/18 at 04:29; Status DC Hydralazine HCl (Apresoline Inj) 5 mg PRN Q4HRS PRN IVP ELEVATED BP, 2ND CHOICE ; Start 12/02/18 at 09:15 Labetalol HCl (Normodyne Iv Push) 10 mg PRN Q2HR PRN IVP HYPERTENSION, 1ST CHOICE; Start 12/02/18 at 09:15 Albuterol/ Ipratropium (Duoneb) 3 ml RTQID NEB Last administered on 12/03/18at 07 :48; Start 12/02/18 at 12:00; Stop 12/03/18 at 17:11; Status DC Metoprolol Tartrate (Lopressor) 50 mg BID PO Last administered on 12/05/18at 21: 14; Start 12/02/18 at 10:00 Heparin Sodium (Porcine) (Heparin Sodium) 10,000 unit STK-MED ONCE .ROUTE ; Start 12/02/18 at 10:13; Stop 12/02/18 at 10:14; Status DC Dexamethasone Sodium Phosphate (Decadron) 20 mg STK-MED ONCE .ROUTE ; Start 12/02 at 10:13; Stop 12/02/18 at 10:14; Status DC Ondansetron HCl (Zofran) 4 mg STK-MED ONCE .ROUTE ; Start 12/02/18 at 10:13; Stop 12/02/18 at 10:14; Status DC Propofol 20 ml @ As Directed STK-MED ONCE IV ; Start 12/02/18 at 10:13; Stop 12/02 at 10:14; Status DC Lidocaine HCl (Lidocaine Pf 2% Vial) 5 ml STK-MED ONCE .ROUTE ; Start 12/02/18 at 10:13; Stop 12/02/18 at 10:14; Status DC Cellulose (Surgicel Fibrillar 1x2) 1 each STK-MED ONCE .ROUTE ; Start 12/02/18 at 11:40; Stop 12/02/18 at 11:41; Status DC Cellulose (Surgicel Fibrillar 1x2) 1 each STK-MED ONCE SURGSITE Last administered on 12/02/18at 12:13; Start 12/02/18 at 12:13; Stop 12/02/18 at 12:14; Status DC Protamine Sulfate (Protamine) 50 mg STK-MED ONCE IV ; Start 12/02/18 at 13:03; Stop 12/02/18 at 13:04; Status DC Fentanyl Citrate (Fentanyl 2ml Vial) 100 mcg STK-MED ONCE .ROUTE ; Start at 13:39; Stop 12/02/18 at 18:41; Status DC Prochlorperazine Edisylate (Compazine) 10 mg STK-MED ONCE .ROUTE ; Start at 13:39; Stop 12/02/18 at 13:40; Status DC Clopidogrel Bisulfate (Plavix) 75 mg 1X ONCE PO Last administered on 12/02/18at 16:27; Start 12/02/18 at 13:45; Stop 12/02/18 at 13:47; Status DC Morphine Sulfate (Morphine Sulfate) 2 mg STK-MED ONCE .ROUTE ; Start 12/02/18 at 14:11; Stop 12/02/18 at 14:12; Status DC Hydromorphone HCl (Dilaudid) 2 mg STK-MED ONCE .ROUTE ; Start 12/02/18 at 14:26; Stop 12/02/18 at 18:41; Status DC Hydromorphone HCl (Dilaudid) 2 mg STK-MED ONCE .ROUTE ; Start 12/02/18 at 15:42; Stop 12/02/18 at 18:41; Status DC Tamsulosin HCl (Flomax) 0.4 mg DAILY PO Last administered on 12/04/18at 09:02; Start 12/03/18 at 17:00 Albuterol/ Ipratropium (Duoneb) 3 ml PRN QID PRN NEB COUGH; Start 12/03/18 at 17 :15 Lactulose (Lactulose) 20 gm PRN DAILY PRN PO CONSTIPATION Last administered on 12/03/18at 21:00; Start 12/03/18 at 20:45 Oxycodone HCl (OxyCONTIN) 20 mg Q12HR PO Last administered on 12/06/18at 10:02; Start 12/06/18 at 10:00 Active Scripts Active Clopidogrel (Clopidogrel Bisulfate) 75 Mg Tablet 75 Mg PO DAILYWBKFT 90 Days Combivent Respimat Inhal (Ipratropium/Albuterol Sulfate) 4 Gm Aer.w.adap 1 Inh IH QID Reported Oxycodone Hcl 5 Mg Capsule 10 Mg PO PRN Q6HRS PRN Spironolactone 25 Mg Tablet 1 Tab PO DAILY Omeprazole 40 Mg Capsule.dr 1 Cap PO DAILY NICODERM CQ 14mg (Nicotine) 1 Each Patch.td24 1 Patch TP DAILY Lactulose 20 Gm/30 Ml Solution 20 Gm PO DAILY Oxycontin (Oxycodone HCl) 20 Mg Tab.er.12h 20 Mg PO BID Vitamin E 200 Unit Capsule 400 Unit PO DAILY Vitamin D3 (Cholecalciferol (Vitamin D3)) 2,000 Unit Capsule 2,000 Unit PO DAILY Zofran (Ondansetron Hcl) 8 Mg Tablet 8 Mg PO BID PRN Nadolol 40 Mg Tablet 1 Tab PO DAILY Furosemide 40 Mg Tablet 1 Tab PO DAILY Vitals/I & O Vital Sign - Last 24 Hours 12/05/18 12/05/18 12/05/18 12/05/18 11:00 11:16 15:00 15:13 Temp 98.2 98.7 98.2 98.7 Pulse 82 77 Resp 17 20 16 20 B/P (MAP) 105/57 (73) 95/50 (65) Pulse Ox 98 99 O2 Delivery Room Air Room Air 12/05/18 12/05/18 12/05/18 12/05/18 15:43 17:17 19:41 20:00 Temp 98.3 98.3 Pulse 78 Resp 20 20 16 B/P (MAP) 103/49 (67) Pulse Ox 96 O2 Delivery Room Air Room Air 12/05/18 12/05/18 12/05/18 12/05/18 21:14 21:14 22:16 23:46 Temp 98.4 98.4 Pulse 78 78 Resp 20 16 18 B/P (MAP) 103/49 92/48 (63) Pulse Ox 98 O2 Delivery Room Air Room Air Room Air 12/06/18 12/06/18 12/06/18 12/06/18 00:47 02:47 05:56 06:56 Temp 98.4 98.4 Pulse 71 Resp 18 16 18 20 B/P (MAP) 96/49 (65) Pulse Ox 96 O2 Delivery Room Air Room Air Room Air 12/06/18 12/06/18 12/06/18 12/06/18 07:00 08:55 09:59 10:02 Temp 97.9 97.9 Pulse 80 Resp 16 20 B/P (MAP) 91/48 (62) 97/49 (65) 100/51 (67) Pulse Ox 96 O2 Delivery Room Air Intake and Output 12/05/18 12/05/18 12/06/18 15:00 23:00 07:00 Intake Total 400 ml 350 ml 700 ml Output Total 350 ml Balance 50 ml 350 ml 700 ml STEPHON RAMOS III DO Dec 06, 2018 11:01
--- NOTE | 2018-12-06 11:50 | PDOC ---
Provider Note Provider Note Vascular S: Patient seen and examined in room. Patient sitting in chair. Patient continues to complain of left leg incisional pain with tightness in thigh. O: Awake and alert VSS Heart rate regular Abdomen soft, nontender nondistended Left leg: groin incision with Prevena intact and functioning, mild erythema under opacified dressing, mild thigh swelling and firmness medial to incision but soft. Prevena dressing removed. Two small areas of blistering noted. Doppler biphasic PT. foot warm, no swelling. A/P: POD #4 Left fem-popliteal bypass Left toe ulcer Urinary retention-improved Doing well, pain management continues to be an issue patient has chronic as well as acute pain, management per IM. Patient able to void now without difficulty, continue Flomax while in hospital, may stop upon discharge. Bacitracin to blistered areas. Increase activity as tolerated. Elevate left leg while in bed. SNF evaluation in process. RYANNE WAGONER APRN Dec 06, 2018 11:50
[2018-12-06] MEDS: FUROSEMIDE 40 MG TABLET. PO SCH (12:00)
[2018-12-06] MEDS: BACITRACIN TOPICAL OINT 14GM TUBE. TP SCH (12:00)
[2018-12-06] MEDS: SPIRONOLACTONE 25 MG TABLET PO SCH (12:00)
--- NOTE | 2018-12-06 13:12 | NUR ---
SS following up with discharge planning. PT/OT recommended [facility] unit. Discharge planning, Symone Cook, phoned and faxed referral to [facility]. Pt accepted pending insurance authorization. SS will await insurance authorization from [facility] and will proceed accordingly with discharge planning.
[2018-12-07] MEDS: oxyCODONE IR 5 MG TABLET PO PRN ×4 (01:04→22:59)
[2018-12-07 03:48] VITALS: BP 90/53
[2018-12-07 04:24] LABS: CREATININE 0.9 mg/dL (0.6-1.0); GFR 63.4
[2018-12-07 07:45] VITALS: BP 97/48
[2018-12-07] MEDS: NICOTINE 14MG PATCH. TD SCH (07:55)
[2018-12-07] MEDS: CLOPIDOGREL BISULFATE 75 MG TABLET PO SCH (07:55)
[2018-12-07] MEDS: PANTOPRAZOLE 40 MG TABLET.DR. PO SCH (07:55)
[2018-12-07] MEDS: BACITRACIN TOPICAL OINT 14GM TUBE. TP SCH (07:55)
[2018-12-07] MEDS: TAMSULOSIN 0.4 MG CAP.ER.24H. PO SCH ×2 (07:56→08:02)
[2018-12-07] MEDS: VITAMIN E 200 UNIT CAPSULE. PO SCH (07:56)
[2018-12-07] MEDS: SPIRONOLACTONE 25 MG TABLET PO SCH (07:56)
[2018-12-07] MEDS: FUROSEMIDE 40 MG TABLET. PO SCH (07:56)
[2018-12-07] MEDS: oxyCODONE ER 10 MG TAB.ER.12H PO SCH ×2 (07:57→20:31)
[2018-12-07] MEDS: ENOXAPARIN 40 MG/0.4 ML SYRINGE. SQ SCH (07:58)
[2018-12-07] MEDS: ELECTROLYTE (NON-ICU) PROTOCOL MC SCH (09:00)
[2018-12-07] MEDS: METOPROLOL TART IMMED RELEASE 50 MG TABLET. PO SCH (09:00)
[2018-12-07 10:21] VITALS: BP 109/62
--- NOTE | 2018-12-07 11:03 | PDOC ---
PROGRESS NOTES Chief Complaint Chief Complaint L leg pain s/p L femoral popliteal bypass Chronic pain issues History of Hepatitis C Reports history of cirrhosis History of Present Illness History of Present Illness Ms. Restrepo is a 63 yo female presenting with L leg pain s/p L femoral popliteal bypass and chronic pain issues with past medical history of cirrhosis. Pt was seen and examined today She had no physical complaints today, was anxious for discharge to SNU NAD, reports fair pain control Vitals Vitals Vital Signs Date Time Temp Pulse Resp B/P (MAP) Pulse Ox O2 Delivery O2 Flow Rate FiO2 12/07/18 10:21 97.4 80 20 109/62 (78) 98 Nasal Cannula 97.4 12/07/18 07:57 2.0 Physical Exam General: Alert, Oriented X3, Cooperative, No acute distress Heart: Regular rate, No murmurs Lungs: Clear Abdomen: Normal bowel sounds, Soft, No tenderness, No masses Extremities: No cyanosis, No edema, Other (incisions are clean, dry, and intact. She has a palpable bypass graft pulse) Skin: No rashes, No significant lesion Labs LABS Laboratory Tests Test 12/07/18 03:00 Platelet Count 134 x10^3/uL (140-400) Creatinine 0.9 mg/dL (0.6-1.0) Estimated GFR (Cockcroft-Gault) 63.4 Review of Systems Review of Systems Pt reports some mild pain at wound site Pt denies CP, SOB, n/v/d Assessment and Plan Assessmemt and Plan L leg pain s/p L femoral popliteal bypass Chronic pain issues History of Hepatitis C Reports history of cirrhosis Plan Plan for D/C to SNU once her insurance is approved Cont pain mgmt Cont wound care PT/OT home meds Hopeful D/C today if approved Comment Review of Relevant I have reviewed the following items jeff (where applicable) has been applied. Labs Laboratory Tests Test 12/07/18 03:00 Platelet Count 134 x10^3/uL (140-400) Creatinine 0.9 mg/dL (0.6-1.0) Estimated GFR (Cockcroft-Gault) 63.4 Laboratory Tests Test 12/07/18 03:00 Platelet Count 134 x10^3/uL (140-400) Creatinine 0.9 mg/dL (0.6-1.0) Estimated GFR (Cockcroft-Gault) 63.4 Medications Current Medications Ondansetron HCl (Zofran) 4 mg PRN Q6HRS PRN IV NAUSEA/VOMITING; Start 12/02/18 at 07:00; Stop 12/03/18 at 06:59; Status DC Fentanyl Citrate (Fentanyl 2ml Vial) 25 mcg PRN Q5MIN PRN IV MILD PAIN; Start 12/02/18 at 07:00; Stop 12/02/18 at 18:41; Status DC Fentanyl Citrate (Fentanyl 2ml Vial) 50 mcg PRN Q5MIN PRN IV MODERATE TO SEVERE PAIN Last administered on 12/02/18 13:50; Start 12/02/18 at 07:00; Stop at 18:41; Status DC Morphine Sulfate (Morphine Sulfate) 1 mg PRN Q10MIN PRN IV SEVERE PAIN Last administered on 12/02/18 14:12; Start 12/02/18 at 07:00; Stop 12/02/18 at 18:41; Status DC Ringer's Solution 1,000 ml @ 30 mls/hr Q24H IV Last administered on 12/02/18at 08:40; Start 12/02/18 at 07:00; Stop 12/02/18 at 18:41; Status DC Lidocaine HCl (Xylocaine-Mpf 1% 2ml Vial) 2 ml PRN 1X PRN ID PRIOR TO IV START ; Start 12/02/18 at 07:00; Stop 12/03/18 at 06:59; Status DC Hydromorphone HCl (Dilaudid) 0.5 mg PRN Q10MIN PRN IV SEV PAIN, Second choice Last administered on 12/02/18 16:34; Start 12/02/18 at 07:00; Stop 12/02/18 at 18: 41; Status DC Prochlorperazine Edisylate (Compazine) 5 mg PACU PRN PRN IV NAUSEA, MRX1 Last administered on 12/02/18at 15:47; Start 12/02/18 at 07:00; Stop 12/03/18 at 06:59; Status DC Heparin Sodium (Porcine) 5000 unit/Sodium Chloride 505 ml @ 505 mls/hr 1X ONCE IRR Last administered on 12/02/18at 10:31; Start 12/02/18 at 06:00; Stop 12/02 at 07:00; Status DC Cefazolin Sodium 1 gm/Sodium Chloride 500 ml @ 500 mls/hr 1X ONCE IRR Last administered on 12/02/18at 10:30; Start 12/02/18 at 06:00; Stop 12/02/18 at 07:00; Status DC Cefazolin Sodium/ Dextrose 50 ml @ 100 mls/hr 1X PREOP PRN IV PRIOR TO PROCEDURE Last administered on 12/02/18at 10:02; Start 12/02/18 at 06:00; Stop 12/02 at 18:00; Status DC Iohexol (Omnipaque 300 Mg/ml) 100 ml STK-MED ONCE .ROUTE ; Start 12/02/18 at 09: 03; Stop 12/02/18 at 09:04; Status DC Thrombin 20,000 unit STK-MED ONCE TP ; Start 12/02/18 at 09:04; Stop 12/02/18 at 09:05; Status DC Gelatin (Gelfoam Size 12-7mm) 1 each STK-MED ONCE .ROUTE ; Start 12/02/18 at 09: 05; Stop 12/02/18 at 09:06; Status DC Cellulose (Surgicel Hemostat 4x8) 1 each STK-MED ONCE .ROUTE ; Start 12/02/18 at 09:05; Stop 12/02/18 at 09:06; Status DC Clopidogrel Bisulfate (Plavix) 75 mg DAILYWBKFT PO Last administered on at 07:55; Start 12/03/18 at 08:00 Furosemide (Lasix) 40 mg DAILY PO Last administered on 12/07/18at 07:56; Start at 11:00 Vitamin E 400 unit DAILY PO Last administered on 12/07/18at 07:56; Start 12/02/18 at 11:00 Non-Formulary Medication (Ipratropium/ Albuterol Sulfate (Combivent Respimat Inhal)) 1 inh QID IH ; Start 12/02/18 at 13:00; Status UNV Non-Formulary Medication (Nadolol ) 1 tab DAILY PO ; Start 12/03/18 at 09:00; Status UNV Nicotine (Nicoderm Cq 14mg) 1 patch DAILY TD Last administered on 12/07/18at 07: 55; Start 12/02/18 at 11:00 Pantoprazole Sodium (Protonix) 40 mg DAILYAC PO Last administered on 12/07/18 07:55; Start 12/02/18 at 11:30 Non-Formulary Medication (Ondansetron Hcl (Zofran)) 8 mg BID PRN PO NAUSEA/ VOMITING; Start 12/02/18 at 09:15; Status UNV Oxycodone HCl (Roxicodone) 10 mg PRN Q6HRS PRN PO BREAKTHROUGH PAIN Last administered on 12/07/18at 07:57; Start 12/02/18 at 10:00 Oxycodone HCl (OxyCONTIN) 20 mg Q12HR PO ; Start 12/02/18 at 10:00; Stop 12/02/18 at 13:38; Status DC Spironolactone (Aldactone) 25 mg DAILY PO Last administered on 12/07/18at 07:56; Start 12/02/18 at 11:00 Fentanyl Citrate (Fentanyl 5ml Vial) 250 mcg STK-MED ONCE .ROUTE ; Start at 09:19; Stop 12/02/18 at 09:20; Status DC Midazolam HCl (Versed) 2 mg STK-MED ONCE .ROUTE ; Start 12/02/18 at 09:19; Stop 12/02/18 at 09:20; Status DC Rocuronium [place] (Zemuron) 50 mg STK-MED ONCE .ROUTE ; Start 12/02/18 at 09:19 ; Stop 12/02/18 at 09:20; Status DC Info (Non-Icu Electrolyte Protocol) 1 ea DAILY MC ; Start 12/03/18 at 09:00 Naloxone HCl (Narcan) 0.1 mg PRN Q2MIN PRN IV ADMIN; Start 12/02/18 at 09:15 Enoxaparin Sodium (Lovenox 40mg Syringe) 40 mg Q24H SQ Last administered on 12/07at 07:58; Start 12/03/18 at 09:00 Sodium Chloride (Normal Saline Flush) 3 ml QSHIFT PRN IV AFTER MEDS AND BLOOD DRAWS; Start 12/02/18 at 09:15 Sodium Chloride 1,000 ml @ 100 mls/hr Q10H IV Last administered on 12/03/18at 15 :11; Start 12/02/18 at 09:15; Stop 12/03/18 at 15:32; Status DC Morphine Sulfate (Morphine Sulfate) 2 mg PRN Q1HR PRN IV PAIN Last administered on 12/06/18at 00:47; Start 12/02/18 at 09:15 Docusate Sodium (Colace) 100 mg PRN BID PRN PO HARD STOOLS; Start 12/02/18 at 09 :15 Ondansetron HCl (Zofran) 4 mg PRN Q6HRS PRN IV NAUESA, 1ST CHOICE; Start at 09:15 Prochlorperazine Edisylate (Compazine) 5 mg PRN Q6HRS PRN IV N/V, 2nd Choice, MR X1; Start 12/02/18 at 09:15 Cefazolin Sodium 1 gm/Dextrose 50 ml @ 100 mls/hr Q6H IV Last administered on 12/03/18at 04:49; Start 12/02/18 at 16:00; Stop 12/03/18 at 04:29; Status DC Hydralazine HCl (Apresoline Inj) 5 mg PRN Q4HRS PRN IVP ELEVATED BP, 2ND CHOICE ; Start 12/02/18 at 09:15 Labetalol HCl (Normodyne Iv Push) 10 mg PRN Q2HR PRN IVP HYPERTENSION, 1ST CHOICE; Start 12/02/18 at 09:15 Albuterol/ Ipratropium (Duoneb) 3 ml RTQID NEB Last administered on 12/03/18at 07 :48; Start 12/02/18 at 12:00; Stop 12/03/18 at 17:11; Status DC Metoprolol Tartrate (Lopressor) 50 mg BID PO Last administered on 12/05/18at 21: 14; Start 12/02/18 at 10:00 Heparin Sodium (Porcine) (Heparin Sodium) 10,000 unit STK-MED ONCE .ROUTE ; Start 12/02/18 at 10:13; Stop 12/02/18 at 10:14; Status DC Dexamethasone Sodium Phosphate (Decadron) 20 mg STK-MED ONCE .ROUTE ; Start 12/02 at 10:13; Stop 12/02/18 at 10:14; Status DC Ondansetron HCl (Zofran) 4 mg STK-MED ONCE .ROUTE ; Start 12/02/18 at 10:13; Stop 12/02/18 at 10:14; Status DC Propofol 20 ml @ As Directed STK-MED ONCE IV ; Start 12/02/18 at 10:13; Stop 12/02 at 10:14; Status DC Lidocaine HCl (Lidocaine Pf 2% Vial) 5 ml STK-MED ONCE .ROUTE ; Start 12/02/18 at 10:13; Stop 12/02/18 at 10:14; Status DC Cellulose (Surgicel Fibrillar 1x2) 1 each STK-MED ONCE .ROUTE ; Start 12/02/18 at 11:40; Stop 12/02/18 at 11:41; Status DC Cellulose (Surgicel Fibrillar 1x2) 1 each STK-MED ONCE SURGSITE Last administered on 12/02/18at 12:13; Start 12/02/18 at 12:13; Stop 12/02/18 at 12:14; Status DC Protamine Sulfate (Protamine) 50 mg STK-MED ONCE IV ; Start 12/02/18 at 13:03; Stop 12/02/18 at 13:04; Status DC Fentanyl Citrate (Fentanyl 2ml Vial) 100 mcg STK-MED ONCE .ROUTE ; Start at 13:39; Stop 12/02/18 at 18:41; Status DC Prochlorperazine Edisylate (Compazine) 10 mg STK-MED ONCE .ROUTE ; Start at 13:39; Stop 12/02/18 at 13:40; Status DC Clopidogrel Bisulfate (Plavix) 75 mg 1X ONCE PO Last administered on 12/02/18at 16:27; Start 12/02/18 at 13:45; Stop 12/02/18 at 13:47; Status DC Morphine Sulfate (Morphine Sulfate) 2 mg STK-MED ONCE .ROUTE ; Start 12/02/18 at 14:11; Stop 12/02/18 at 14:12; Status DC Hydromorphone HCl (Dilaudid) 2 mg STK-MED ONCE .ROUTE ; Start 12/02/18 at 14:26; Stop 12/02/18 at 18:41; Status DC Hydromorphone HCl (Dilaudid) 2 mg STK-MED ONCE .ROUTE ; Start 12/02/18 at 15:42; Stop 12/02/18 at 18:41; Status DC Tamsulosin HCl (Flomax) 0.4 mg DAILY PO Last administered on 12/04/18at 09:02; Start 12/03/18 at 17:00; Stop 12/07/18 at 09:53; Status DC Albuterol/ Ipratropium (Duoneb) 3 ml PRN QID PRN NEB COUGH; Start 12/03/18 at 17 :15 Lactulose (Lactulose) 20 gm PRN DAILY PRN PO CONSTIPATION Last administered on 12/03/18at 21:00; Start 12/03/18 at 20:45 Oxycodone HCl (OxyCONTIN) 20 mg Q12HR PO Last administered on 12/07/18at 07:57; Start 12/06/18 at 10:00 Bacitracin 1 michelle DAILY TP Last administered on 12/07/18at 07:55; Start 12/06/18 at 12:30 Active Scripts Active Clopidogrel (Clopidogrel Bisulfate) 75 Mg Tablet 75 Mg PO DAILYWBKFT 90 Days Combivent Respimat Inhal (Ipratropium/Albuterol Sulfate) 4 Gm Aer.w.adap 1 Inh IH QID Reported Oxycodone Hcl 5 Mg Capsule 10 Mg PO PRN Q6HRS PRN Spironolactone 25 Mg Tablet 1 Tab PO DAILY Omeprazole 40 Mg Capsule. 1 Cap PO DAILY NICODERM CQ 14mg (Nicotine) 1 Each Patch.td24 1 Patch TP DAILY Lactulose 20 Gm/30 Ml Solution 20 Gm PO DAILY Oxycontin (Oxycodone HCl) 20 Mg Tab.er.12h 20 Mg PO BID Vitamin E 200 Unit Capsule 400 Unit PO DAILY Vitamin D3 (Cholecalciferol (Vitamin D3)) 2,000 Unit Capsule 2,000 Unit PO DAILY Zofran (Ondansetron Hcl) 8 Mg Tablet 8 Mg PO BID PRN Nadolol 40 Mg Tablet 1 Tab PO DAILY Furosemide 40 Mg Tablet 1 Tab PO DAILY Vitals/I & O Vital Sign - Last 24 Hours 12/06/18 12/06/18 12/06/18 12/06/18 11:55 11:59 12:02 14:02 Temp 97.6 97.6 Pulse 82 73 Resp 16 20 B/P (MAP) 100/53 (69) 100/53 (69) Pulse Ox 97 O2 Delivery Room Air 12/06/18 12/06/18 12/06/18 12/06/18 15:00 18:04 19:45 20:00 Temp 98.2 98.4 98.2 98.4 Pulse 77 84 Resp 14 21 B/P (MAP) 98/51 (67) 95/53 (67) Pulse Ox 97 98 O2 Delivery Room Air Room Air Room Air Room Air 12/06/18 12/06/18 12/06/18 12/07/18 20:54 21:00 23:34 01:04 Temp 97.8 97.8 Pulse 84 76 Resp 19 B/P (MAP) 95/53 90/45 (60) Pulse Ox 95 O2 Delivery Room Air Room Air Room Air 12/07/18 12/07/18 12/07/18 12/07/18 01:05 03:48 07:45 07:52 Temp 97.7 97.7 97.7 97.7 Pulse 75 73 Resp 20 16 B/P (MAP) 90/53 (65) 97/48 (64) Pulse Ox 96 96 O2 Delivery Room Air Room Air Nasal Cannula Room Air 12/07/18 12/07/18 12/07/18 12/07/18 07:57 07:57 08:57 10:21 Temp 97.4 97.4 Pulse 80 Resp 18 18 18 20 B/P (MAP) 109/62 (78) Pulse Ox 96 96 96 98 O2 Delivery Room Air Room Air Room Air Nasal Cannula O2 Flow Rate 2.0 Intake and Output 12/06/18 12/06/18 12/07/18 15:00 23:00 07:00 Intake Total 50 ml 400 ml Output Total 225 ml Balance -225 ml 50 ml 400 ml Nutrition Consultation Dietary Evaluation: Recommendations by RD: Increase Calorie Intake Comments: Continue w/cardiac diet, obtained pt dinner order and communicated w/dietary Expected Outcomes/Goals: PO intake to meet >75% est needs Malnutrition Findings: Body Fat Depletion (Non Severe: Mild Depletion Weight Status: Appropriate STEPHON RAMOS III DO Dec 07, 2018 11:03
[2018-12-07 15:00] VITALS: BP 110/56
--- NOTE | 2018-12-07 17:54 | PDOC ---
PROGRESS NOTES Subjective Subjective still sore Objective Objective Vital Signs Date Time Temp Pulse Resp B/P (MAP) Pulse Ox O2 Delivery O2 Flow Rate FiO2 12/07/18 15:14 18 98 Room Air 12/07/18 15:00 98.3 84 110/56 (74) 98.3 12/07/18 12:14 2.0 Intake and Output 12/07/18 07:00 Intake Total 450 ml Output Total 225 ml Balance 225 ml Intake Oral 450 ml Output Urine Total 225 ml # Voids 8 # Bowel Movements 1 Physical Exam Physical Exam incisions ok 2+ graft pulse medial to the left knee foot warm Diagnosis DIAGNOSIS doing well s/p right leg bypass Plan Plan of Care ok for discharge when her mobility improves Comment Review of Relevant I have reviewed the following items jeff (where applicable) has been applied. Labs Laboratory Tests Test 12/07/18 03:00 Platelet Count 134 x10^3/uL (140-400) Creatinine 0.9 mg/dL (0.6-1.0) Estimated GFR (Cockcroft-Gault) 63.4 Laboratory Tests Test 12/07/18 03:00 Platelet Count 134 x10^3/uL (140-400) Creatinine 0.9 mg/dL (0.6-1.0) Estimated GFR (Cockcroft-Gault) 63.4 Medications Current Medications Ondansetron HCl (Zofran) 4 mg PRN Q6HRS PRN IV NAUSEA/VOMITING; Start 12/02/18 at 07:00; Stop 12/03/18 at 06:59; Status DC Fentanyl Citrate (Fentanyl 2ml Vial) 25 mcg PRN Q5MIN PRN IV MILD PAIN; Start 12/02/18 at 07:00; Stop 12/02/18 at 18:41; Status DC Fentanyl Citrate (Fentanyl 2ml Vial) 50 mcg PRN Q5MIN PRN IV MODERATE TO SEVERE PAIN Last administered on 12/02/18at 13:50; Start 12/02/18 at 07:00; Stop at 18:41; Status DC Morphine Sulfate (Morphine Sulfate) 1 mg PRN Q10MIN PRN IV SEVERE PAIN Last administered on 12/02/18at 14:12; Start 12/02/18 at 07:00; Stop 12/02/18 at 18:41; Status DC Ringer's Solution 1,000 ml @ 30 mls/hr Q24H IV Last administered on 12/02/18at 08:40; Start 12/02/18 at 07:00; Stop 12/02/18 at 18:41; Status DC Lidocaine HCl (Xylocaine-Mpf 1% 2ml Vial) 2 ml PRN 1X PRN ID PRIOR TO IV START ; Start 12/02/18 at 07:00; Stop 12/03/18 at 06:59; Status DC Hydromorphone HCl (Dilaudid) 0.5 mg PRN Q10MIN PRN IV SEV PAIN, Second choice Last administered on 12/02/18at 16:34; Start 12/02/18 at 07:00; Stop 12/02/18 at 18: 41; Status DC Prochlorperazine Edisylate (Compazine) 5 mg PACU PRN PRN IV NAUSEA, MRX1 Last administered on 12/02/18at 15:47; Start 12/02/18 at 07:00; Stop 12/03/18 at 06:59; Status DC Heparin Sodium (Porcine) 5000 unit/Sodium Chloride 505 ml @ 505 mls/hr 1X ONCE IRR Last administered on 12/02/18at 10:31; Start 12/02/18 at 06:00; Stop 12/02 at 07:00; Status DC Cefazolin Sodium 1 gm/Sodium Chloride 500 ml @ 500 mls/hr 1X ONCE IRR Last administered on 12/02/18at 10:30; Start 12/02/18 at 06:00; Stop 12/02/18 at 07:00; Status DC Cefazolin Sodium/ Dextrose 50 ml @ 100 mls/hr 1X PREOP PRN IV PRIOR TO PROCEDURE Last administered on 12/02/18at 10:02; Start 12/02/18 at 06:00; Stop 12/02 at 18:00; Status DC Iohexol (Omnipaque 300 Mg/ml) 100 ml STK-MED ONCE .ROUTE ; Start 12/02/18 at 09: 03; Stop 12/02/18 at 09:04; Status DC Thrombin 20,000 unit STK-MED ONCE TP ; Start 12/02/18 at 09:04; Stop 12/02/18 at 09:05; Status DC Gelatin (Gelfoam Size 12-7mm) 1 each STK-MED ONCE .ROUTE ; Start 12/02/18 at 09: 05; Stop 12/02/18 at 09:06; Status DC Cellulose (Surgicel Hemostat 4x8) 1 each STK-MED ONCE .ROUTE ; Start 12/02/18 at 09:05; Stop 12/02/18 at 09:06; Status DC Clopidogrel Bisulfate (Plavix) 75 mg DAILYWBKFT PO Last administered on at 07:55; Start 12/03/18 at 08:00 Furosemide (Lasix) 40 mg DAILY PO Last administered on 12/07/18 07:56; Start at 11:00 Vitamin E 400 unit DAILY PO Last administered on 12/07/18 07:56; Start 12/02/18 at 11:00 Non-Formulary Medication (Ipratropium/ Albuterol Sulfate (Combivent Respimat Inhal)) 1 inh QID IH ; Start 12/02/18 at 13:00; Status UNV Non-Formulary Medication (Nadolol ) 1 tab DAILY PO ; Start 12/03/18 at 09:00; Status UNV Nicotine (Nicoderm Cq 14mg) 1 patch DAILY TD Last administered on 12/07/18at 07: 55; Start 12/02/18 at 11:00 Pantoprazole Sodium (Protonix) 40 mg DAILYAC PO Last administered on 12/07/18 07:55; Start 12/02/18 at 11:30 Non-Formulary Medication (Ondansetron Hcl (Zofran)) 8 mg BID PRN PO NAUSEA/ VOMITING; Start 12/02/18 at 09:15; Status UNV Oxycodone HCl (Roxicodone) 10 mg PRN Q6HRS PRN PO BREAKTHROUGH PAIN Last administered on 12/07/18at 14:14; Start 12/02/18 at 10:00 Oxycodone HCl (OxyCONTIN) 20 mg Q12HR PO ; Start 12/02/18 at 10:00; Stop 12/02/18 at 13:38; Status DC Spironolactone (Aldactone) 25 mg DAILY PO Last administered on 12/07/18 07:56; Start 12/02/18 at 11:00 Fentanyl Citrate (Fentanyl 5ml Vial) 250 mcg STK-MED ONCE .ROUTE ; Start at 09:19; Stop 12/02/18 at 09:20; Status DC Midazolam HCl (Versed) 2 mg STK-MED ONCE .ROUTE ; Start 12/02/18 at 09:19; Stop 12/02/18 at 09:20; Status DC Rocuronium [place] (Zemuron) 50 mg STK-MED ONCE .ROUTE ; Start 12/02/18 at 09:19 ; Stop 12/02/18 at 09:20; Status DC Info (Non-Icu Electrolyte Protocol) 1 ea DAILY MC ; Start 12/03/18 at 09:00 Naloxone HCl (Narcan) 0.1 mg PRN Q2MIN PRN IV ADMIN; Start 12/02/18 at 09:15 Enoxaparin Sodium (Lovenox 40mg Syringe) 40 mg Q24H SQ Last administered on 12/07at 07:58; Start 12/03/18 at 09:00 Sodium Chloride (Normal Saline Flush) 3 ml QSHIFT PRN IV AFTER MEDS AND BLOOD DRAWS; Start 12/02/18 at 09:15 Sodium Chloride 1,000 ml @ 100 mls/hr Q10H IV Last administered on 12/03/18at 15 :11; Start 12/02/18 at 09:15; Stop 12/03/18 at 15:32; Status DC Morphine Sulfate (Morphine Sulfate) 2 mg PRN Q1HR PRN IV PAIN Last administered on 12/06/18at 00:47; Start 12/02/18 at 09:15 Docusate Sodium (Colace) 100 mg PRN BID PRN PO HARD STOOLS; Start 12/02/18 at 09 :15 Ondansetron HCl (Zofran) 4 mg PRN Q6HRS PRN IV NAUESA, 1ST CHOICE; Start at 09:15 Prochlorperazine Edisylate (Compazine) 5 mg PRN Q6HRS PRN IV N/V, 2nd Choice, MR X1; Start 12/02/18 at 09:15 Cefazolin Sodium 1 gm/Dextrose 50 ml @ 100 mls/hr Q6H IV Last administered on 12/03/18at 04:49; Start 12/02/18 at 16:00; Stop 12/03/18 at 04:29; Status DC Hydralazine HCl (Apresoline Inj) 5 mg PRN Q4HRS PRN IVP ELEVATED BP, 2ND CHOICE ; Start 12/02/18 at 09:15 Labetalol HCl (Normodyne Iv Push) 10 mg PRN Q2HR PRN IVP HYPERTENSION, 1ST CHOICE; Start 12/02/18 at 09:15 Albuterol/ Ipratropium (Duoneb) 3 ml RTQID NEB Last administered on 12/03/18at 07 :48; Start 12/02/18 at 12:00; Stop 12/03/18 at 17:11; Status DC Metoprolol Tartrate (Lopressor) 50 mg BID PO Last administered on 12/05/18at 21: 14; Start 12/02/18 at 10:00; Stop 12/07/18 at 11:43; Status DC Heparin Sodium (Porcine) (Heparin Sodium) 10,000 unit STK-MED ONCE .ROUTE ; Start 12/02/18 at 10:13; Stop 12/02/18 at 10:14; Status DC Dexamethasone Sodium Phosphate (Decadron) 20 mg STK-MED ONCE .ROUTE ; Start 12/02 at 10:13; Stop 12/02/18 at 10:14; Status DC Ondansetron HCl (Zofran) 4 mg STK-MED ONCE .ROUTE ; Start 12/02/18 at 10:13; Stop 12/02/18 at 10:14; Status DC Propofol 20 ml @ As Directed STK-MED ONCE IV ; Start 12/02/18 at 10:13; Stop 12/02 at 10:14; Status DC Lidocaine HCl (Lidocaine Pf 2% Vial) 5 ml STK-MED ONCE .ROUTE ; Start 12/02/18 at 10:13; Stop 12/02/18 at 10:14; Status DC Cellulose (Surgicel Fibrillar 1x2) 1 each STK-MED ONCE .ROUTE ; Start 12/02/18 at 11:40; Stop 12/02/18 at 11:41; Status DC Cellulose (Surgicel Fibrillar 1x2) 1 each STK-MED ONCE SURGSITE Last administered on 12/02/18at 12:13; Start 12/02/18 at 12:13; Stop 12/02/18 at 12:14; Status DC Protamine Sulfate (Protamine) 50 mg STK-MED ONCE IV ; Start 12/02/18 at 13:03; Stop 12/02/18 at 13:04; Status DC Fentanyl Citrate (Fentanyl 2ml Vial) 100 mcg STK-MED ONCE .ROUTE ; Start at 13:39; Stop 12/02/18 at 18:41; Status DC Prochlorperazine Edisylate (Compazine) 10 mg STK-MED ONCE .ROUTE ; Start at 13:39; Stop 12/02/18 at 13:40; Status DC Clopidogrel Bisulfate (Plavix) 75 mg 1X ONCE PO Last administered on 12/02/18at 16:27; Start 12/02/18 at 13:45; Stop 12/02/18 at 13:47; Status DC Morphine Sulfate (Morphine Sulfate) 2 mg STK-MED ONCE .ROUTE ; Start 12/02/18 at 14:11; Stop 12/02/18 at 14:12; Status DC Hydromorphone HCl (Dilaudid) 2 mg STK-MED ONCE .ROUTE ; Start 12/02/18 at 14:26; Stop 12/02/18 at 18:41; Status DC Hydromorphone HCl (Dilaudid) 2 mg STK-MED ONCE .ROUTE ; Start 12/02/18 at 15:42; Stop 12/02/18 at 18:41; Status DC Tamsulosin HCl (Flomax) 0.4 mg DAILY PO Last administered on 12/04/18at 09:02; Start 12/03/18 at 17:00; Stop 12/07/18 at 09:53; Status DC Albuterol/ Ipratropium (Duoneb) 3 ml PRN QID PRN NEB COUGH; Start 12/03/18 at 17 :15 Lactulose (Lactulose) 20 gm PRN DAILY PRN PO CONSTIPATION Last administered on 12/03/18at 21:00; Start 12/03/18 at 20:45 Oxycodone HCl (OxyCONTIN) 20 mg Q12HR PO Last administered on 12/07/18at 07:57; Start 12/06/18 at 10:00 Bacitracin 1 michelle DAILY TP Last administered on 12/07/18at 07:55; Start 12/06/18 at 12:30 Active Scripts Active Clopidogrel (Clopidogrel Bisulfate) 75 Mg Tablet 75 Mg PO DAILYWBKFT 90 Days Combivent Respimat Inhal (Ipratropium/Albuterol Sulfate) 4 Gm Aer.w.adap 1 Inh IH QID Reported Oxycodone Hcl 5 Mg Capsule 10 Mg PO PRN Q6HRS PRN Spironolactone 25 Mg Tablet 1 Tab PO DAILY Omeprazole 40 Mg Capsule.dr 1 Cap PO DAILY NICODERM CQ 14mg (Nicotine) 1 Each Patch.td24 1 Patch TP DAILY Lactulose 20 Gm/30 Ml Solution 20 Gm PO DAILY Oxycontin (Oxycodone HCl) 20 Mg Tab.er.12h 20 Mg PO BID Vitamin E 200 Unit Capsule 400 Unit PO DAILY Vitamin D3 (Cholecalciferol (Vitamin D3)) 2,000 Unit Capsule 2,000 Unit PO DAILY Zofran (Ondansetron Hcl) 8 Mg Tablet 8 Mg PO BID PRN Nadolol 40 Mg Tablet 1 Tab PO DAILY Furosemide 40 Mg Tablet 1 Tab PO DAILY Vitals/I & O Vital Sign - Last 24 Hours 12/06/18 12/06/18 12/06/18 12/06/18 18:04 19:45 20:00 20:54 Temp 98.4 98.4 Pulse 84 Resp 21 B/P (MAP) 95/53 (67) Pulse Ox 98 O2 Delivery Room Air Room Air Room Air Room Air 12/06/18 12/06/18 12/07/18 12/07/18 21:00 23:34 01:04 03:48 Temp 97.8 97.7 97.8 97.7 Pulse 84 76 75 Resp 19 20 B/P (MAP) 95/53 90/45 (60) 90/53 (65) Pulse Ox 95 96 O2 Delivery Room Air Room Air Room Air 12/07/18 12/07/18 12/07/18 12/07/18 07:45 07:52 07:57 07:57 Temp 97.7 97.7 Pulse 73 Resp 16 18 18 B/P (MAP) 97/48 (64) Pulse Ox 96 96 96 O2 Delivery Nasal Cannula Room Air Room Air Room Air O2 Flow Rate 2.0 12/07/18 12/07/18 12/07/18 12/07/18 10:21 12:14 14:14 15:00 Temp 97.4 98.3 97.4 98.3 Pulse 80 84 Resp 20 12 B/P (MAP) 109/62 (78) 110/56 (74) Pulse Ox 98 98 98 99 O2 Delivery Nasal Cannula Room Air Room Air Room Air O2 Flow Rate 2.0 12/07/18 15:14 Resp 18 Pulse Ox 98 O2 Delivery Room Air Intake and Output 12/06/18 12/06/18 12/07/18 15:00 23:00 07:00 Intake Total 50 ml 400 ml Output Total 225 ml Balance -225 ml 50 ml 400 ml Nutrition Consultation Dietary Evaluation: Recommendations by RD: Increase Calorie Intake Comments: Continue w/cardiac diet, obtained pt dinner order and communicated w/dietary Expected Outcomes/Goals: PO intake to meet >75% est needs Malnutrition Findings: Body Fat Depletion (Non Severe: Mild Depletion Weight Status: Appropriate ZENY REDMAN MD Dec 07, 2018 17:54
[2018-12-07 19:42] VITALS: BP 92/57
[2018-12-07 23:14] VITALS: BP 108/52
[2018-12-08 03:30] VITALS: BP 94/49
[2018-12-08] MEDS: oxyCODONE IR 5 MG TABLET PO PRN ×3 (05:40→18:12)
[2018-12-08 07:20] VITALS: BP 103/54
[2018-12-08] MEDS: PANTOPRAZOLE 40 MG TABLET.DR. PO SCH (08:46)
[2018-12-08] MEDS: oxyCODONE ER 10 MG TAB.ER.12H PO SCH ×2 (08:46→20:29)
[2018-12-08] MEDS: CLOPIDOGREL BISULFATE 75 MG TABLET PO SCH (08:46)
[2018-12-08] MEDS: VITAMIN E 200 UNIT CAPSULE. PO SCH (08:47)
[2018-12-08] MEDS: SPIRONOLACTONE 25 MG TABLET PO SCH (08:47)
[2018-12-08] MEDS: NICOTINE 14MG PATCH. TD SCH (08:47)
[2018-12-08] MEDS: ENOXAPARIN 40 MG/0.4 ML SYRINGE. SQ SCH (08:47)
[2018-12-08] MEDS: FUROSEMIDE 40 MG TABLET. PO SCH (08:50)
[2018-12-08] MEDS: BACITRACIN TOPICAL OINT 14GM TUBE. TP SCH (08:50)
[2018-12-08] MEDS: ELECTROLYTE (NON-ICU) PROTOCOL MC SCH (08:58)
[2018-12-08 11:00] VITALS: BP 100/49
--- NOTE | 2018-12-08 11:02 | PDOC ---
PROGRESS NOTES Chief Complaint Chief Complaint L leg pain s/p L femoral popliteal bypass Chronic pain issues History of Hepatitis C Reports history of cirrhosis History of Present Illness History of Present Illness Ms. Restrepo is a 63 yo female presenting with L leg pain s/p L femoral popliteal bypass and chronic pain issues with past medical history of cirrhosis. Pt was seen and examined today while she was resting in bed NAD, reports good pain control No further complaints, was very happy with the news that she was cleared to D/C home with home health tomorrow Vitals Vitals Vital Signs Date Time Temp Pulse Resp B/P (MAP) Pulse Ox O2 Delivery O2 Flow Rate FiO2 12/08/18 08:46 18 97 Room Air 2.0 12/08/18 07:20 97.3 80 103/54 (70) 97.3 Physical Exam General: Alert, Oriented X3, Cooperative, No acute distress Heart: Regular rate, No murmurs Lungs: Clear Abdomen: Normal bowel sounds, Soft, No tenderness, No masses Extremities: No cyanosis, No edema, Other (incisions are clean, dry, and intact. She has a palpable bypass graft pulse) Skin: No rashes, No significant lesion Review of Systems Review of Systems Pt denies CP, SOB, headache, dizziness, n/v Assessment and Plan Assessmemt and Plan Assessment L leg pain s/p L femoral popliteal bypass Chronic pain issues History of Hepatitis C Reports history of cirrhosis Plan She will be discharged tomorrow to home with home health Cont pain mgmt Cont wound care PT/OT home meds Comment Review of Relevant I have reviewed the following items jeff (where applicable) has been applied. Labs Laboratory Tests Test 12/07/18 03:00 Platelet Count 134 x10^3/uL (140-400) Creatinine 0.9 mg/dL (0.6-1.0) Estimated GFR (Cockcroft-Gault) 63.4 Medications Current Medications Ondansetron HCl (Zofran) 4 mg PRN Q6HRS PRN IV NAUSEA/VOMITING; Start 12/02/18 at 07:00; Stop 12/03/18 at 06:59; Status DC Fentanyl Citrate (Fentanyl 2ml Vial) 25 mcg PRN Q5MIN PRN IV MILD PAIN; Start 12/02/18 at 07:00; Stop 12/02/18 at 18:41; Status DC Fentanyl Citrate (Fentanyl 2ml Vial) 50 mcg PRN Q5MIN PRN IV MODERATE TO SEVERE PAIN Last administered on 12/02/18 13:50; Start 12/02/18 at 07:00; Stop at 18:41; Status DC Morphine Sulfate (Morphine Sulfate) 1 mg PRN Q10MIN PRN IV SEVERE PAIN Last administered on 12/02/18 14:12; Start 12/02/18 at 07:00; Stop 12/02/18 at 18:41; Status DC Ringer's Solution 1,000 ml @ 30 mls/hr Q24H IV Last administered on 12/02/18 08:40; Start 12/02/18 at 07:00; Stop 12/02/18 at 18:41; Status DC Lidocaine HCl (Xylocaine-Mpf 1% 2ml Vial) 2 ml PRN 1X PRN ID PRIOR TO IV START ; Start 12/02/18 at 07:00; Stop 12/03/18 at 06:59; Status DC Hydromorphone HCl (Dilaudid) 0.5 mg PRN Q10MIN PRN IV SEV PAIN, Second choice Last administered on 12/02/18 16:34; Start 12/02/18 at 07:00; Stop 12/02/18 at 18: 41; Status DC Prochlorperazine Edisylate (Compazine) 5 mg PACU PRN PRN IV NAUSEA, MRX1 Last administered on 12/02/18 15:47; Start 12/02/18 at 07:00; Stop 12/03/18 at 06:59; Status DC Heparin Sodium (Porcine) 5000 unit/Sodium Chloride 505 ml @ 505 mls/hr 1X ONCE IRR Last administered on 12/02/18 10:31; Start 12/02/18 at 06:00; Stop 12/02 at 07:00; Status DC Cefazolin Sodium 1 gm/Sodium Chloride 500 ml @ 500 mls/hr 1X ONCE IRR Last administered on 12/02/18 10:30; Start 12/02/18 at 06:00; Stop 12/02/18 at 07:00; Status DC Cefazolin Sodium/ Dextrose 50 ml @ 100 mls/hr 1X PREOP PRN IV PRIOR TO PROCEDURE Last administered on 12/02/18 10:02; Start 12/02/18 at 06:00; Stop 12/02 at 18:00; Status DC Iohexol (Omnipaque 300 Mg/ml) 100 ml STK-MED ONCE .ROUTE ; Start 12/02/18 at 09: 03; Stop 12/02/18 at 09:04; Status DC Thrombin 20,000 unit STK-MED ONCE TP ; Start 12/02/18 at 09:04; Stop 12/02/18 at 09:05; Status DC Gelatin (Gelfoam Size 12-7mm) 1 each STK-MED ONCE .ROUTE ; Start 12/02/18 at 09: 05; Stop 12/02/18 at 09:06; Status DC Cellulose (Surgicel Hemostat 4x8) 1 each STK-MED ONCE .ROUTE ; Start 12/02/18 at 09:05; Stop 12/02/18 at 09:06; Status DC Clopidogrel Bisulfate (Plavix) 75 mg DAILYWBKFT PO Last administered on 08:46; Start 12/03/18 at 08:00 Furosemide (Lasix) 40 mg DAILY PO Last administered on 12/08/18 08:50; Start 12/02/18 at 11:00 Vitamin E 400 unit DAILY PO Last administered on 12/08/18at 08:47; Start at 11:00 Non-Formulary Medication (Ipratropium/ Albuterol Sulfate (Combivent Respimat Inhal)) 1 inh QID IH ; Start 12/02/18 at 13:00; Status UNV Non-Formulary Medication (Nadolol ) 1 tab DAILY PO ; Start 12/03/18 at 09:00; Status UNV Nicotine (Nicoderm Cq 14mg) 1 patch DAILY TD Last administered on 12/08/18 08: 47; Start 12/02/18 at 11:00 Pantoprazole Sodium (Protonix) 40 mg DAILYAC PO Last administered on 12/08/18 08:46; Start 12/02/18 at 11:30 Non-Formulary Medication (Ondansetron Hcl (Zofran)) 8 mg BID PRN PO NAUSEA/ VOMITING; Start 12/02/18 at 09:15; Status UNV Oxycodone HCl (Roxicodone) 10 mg PRN Q6HRS PRN PO BREAKTHROUGH PAIN Last administered on 12/08/18at 05:40; Start 12/02/18 at 10:00 Oxycodone HCl (OxyCONTIN) 20 mg Q12HR PO ; Start 12/02/18 at 10:00; Stop 12/02/18 at 13:38; Status DC Spironolactone (Aldactone) 25 mg DAILY PO Last administered on 12/08/18at 08:47 ; Start 12/02/18 at 11:00 Fentanyl Citrate (Fentanyl 5ml Vial) 250 mcg STK-MED ONCE .ROUTE ; Start at 09:19; Stop 12/02/18 at 09:20; Status DC Midazolam HCl (Versed) 2 mg STK-MED ONCE .ROUTE ; Start 12/02/18 at 09:19; Stop 12/02/18 at 09:20; Status DC Rocuronium [place] (Zemuron) 50 mg STK-MED ONCE .ROUTE ; Start 12/02/18 at 09:19 ; Stop 12/02/18 at 09:20; Status DC Info (Non-Icu Electrolyte Protocol) 1 ea DAILY MC ; Start 12/03/18 at 09:00 Naloxone HCl (Narcan) 0.1 mg PRN Q2MIN PRN IV ADMIN; Start 12/02/18 at 09:15 Enoxaparin Sodium (Lovenox 40mg Syringe) 40 mg Q24H SQ Last administered on 07/19at 08:47; Start 12/03/18 at 09:00 Sodium Chloride (Normal Saline Flush) 3 ml QSHIFT PRN IV AFTER MEDS AND BLOOD DRAWS; Start 12/02/18 at 09:15 Sodium Chloride 1,000 ml @ 100 mls/hr Q10H IV Last administered on 12/03/18at 15 :11; Start 12/02/18 at 09:15; Stop 12/03/18 at 15:32; Status DC Morphine Sulfate (Morphine Sulfate) 2 mg PRN Q1HR PRN IV PAIN Last administered on 12/06/18at 00:47; Start 12/02/18 at 09:15 Docusate Sodium (Colace) 100 mg PRN BID PRN PO HARD STOOLS; Start 12/02/18 at 09 :15 Ondansetron HCl (Zofran) 4 mg PRN Q6HRS PRN IV NAUESA, 1ST CHOICE; Start at 09:15 Prochlorperazine Edisylate (Compazine) 5 mg PRN Q6HRS PRN IV N/V, 2nd Choice, MR X1; Start 12/02/18 at 09:15 Cefazolin Sodium 1 gm/Dextrose 50 ml @ 100 mls/hr Q6H IV Last administered on 12/03/18at 04:49; Start 12/02/18 at 16:00; Stop 12/03/18 at 04:29; Status DC Hydralazine HCl (Apresoline Inj) 5 mg PRN Q4HRS PRN IVP ELEVATED BP, 2ND CHOICE ; Start 12/02/18 at 09:15 Labetalol HCl (Normodyne Iv Push) 10 mg PRN Q2HR PRN IVP HYPERTENSION, 1ST CHOICE; Start 12/02/18 at 09:15 Albuterol/ Ipratropium (Duoneb) 3 ml RTQID NEB Last administered on 12/03/18at 07 :48; Start 12/02/18 at 12:00; Stop 12/03/18 at 17:11; Status DC Metoprolol Tartrate (Lopressor) 50 mg BID PO Last administered on 12/05/18at 21: 14; Start 12/02/18 at 10:00; Stop 12/07/18 at 11:43; Status DC Heparin Sodium (Porcine) (Heparin Sodium) 10,000 unit STK-MED ONCE .ROUTE ; Start 12/02/18 at 10:13; Stop 12/02/18 at 10:14; Status DC Dexamethasone Sodium Phosphate (Decadron) 20 mg STK-MED ONCE .ROUTE ; Start 12/02 at 10:13; Stop 12/02/18 at 10:14; Status DC Ondansetron HCl (Zofran) 4 mg STK-MED ONCE .ROUTE ; Start 12/02/18 at 10:13; Stop 12/02/18 at 10:14; Status DC Propofol 20 ml @ As Directed STK-MED ONCE IV ; Start 12/02/18 at 10:13; Stop 12/02 at 10:14; Status DC Lidocaine HCl (Lidocaine Pf 2% Vial) 5 ml STK-MED ONCE .ROUTE ; Start 12/02/18 at 10:13; Stop 12/02/18 at 10:14; Status DC Cellulose (Surgicel Fibrillar 1x2) 1 each STK-MED ONCE .ROUTE ; Start 12/02/18 at 11:40; Stop 12/02/18 at 11:41; Status DC Cellulose (Surgicel Fibrillar 1x2) 1 each STK-MED ONCE SURGSITE Last administered on 12/02/18at 12:13; Start 12/02/18 at 12:13; Stop 12/02/18 at 12:14; Status DC Protamine Sulfate (Protamine) 50 mg STK-MED ONCE IV ; Start 12/02/18 at 13:03; Stop 12/02/18 at 13:04; Status DC Fentanyl Citrate (Fentanyl 2ml Vial) 100 mcg STK-MED ONCE .ROUTE ; Start at 13:39; Stop 12/02/18 at 18:41; Status DC Prochlorperazine Edisylate (Compazine) 10 mg STK-MED ONCE .ROUTE ; Start at 13:39; Stop 12/02/18 at 13:40; Status DC Clopidogrel Bisulfate (Plavix) 75 mg 1X ONCE PO Last administered on 12/02/18at 16:27; Start 12/02/18 at 13:45; Stop 12/02/18 at 13:47; Status DC Morphine Sulfate (Morphine Sulfate) 2 mg STK-MED ONCE .ROUTE ; Start 12/02/18 at 14:11; Stop 12/02/18 at 14:12; Status DC Hydromorphone HCl (Dilaudid) 2 mg STK-MED ONCE .ROUTE ; Start 12/02/18 at 14:26; Stop 12/02/18 at 18:41; Status DC Hydromorphone HCl (Dilaudid) 2 mg STK-MED ONCE .ROUTE ; Start 12/02/18 at 15:42; Stop 12/02/18 at 18:41; Status DC Tamsulosin HCl (Flomax) 0.4 mg DAILY PO Last administered on 12/04/18at 09:02; Start 12/03/18 at 17:00; Stop 12/07/18 at 09:53; Status DC Albuterol/ Ipratropium (Duoneb) 3 ml PRN QID PRN NEB COUGH; Start 12/03/18 at 17 :15 Lactulose (Lactulose) 20 gm PRN DAILY PRN PO CONSTIPATION Last administered on 12/03/18at 21:00; Start 12/03/18 at 20:45 Oxycodone HCl (OxyCONTIN) 20 mg Q12HR PO Last administered on 12/08/18at 08:46; Start 12/06/18 at 10:00 Bacitracin 1 michelle DAILY TP Last administered on 12/08/18at 08:50; Start 12/06/18 at 12:30 Active Scripts Active Clopidogrel (Clopidogrel Bisulfate) 75 Mg Tablet 75 Mg PO DAILYWBKFT 90 Days Combivent Respimat Inhal (Ipratropium/Albuterol Sulfate) 4 Gm Aer.w.adap 1 Inh IH QID Reported Oxycodone Hcl 5 Mg Capsule 10 Mg PO PRN Q6HRS PRN Spironolactone 25 Mg Tablet 1 Tab PO DAILY Omeprazole 40 Mg Capsule.dr 1 Cap PO DAILY NICODERM CQ 14mg (Nicotine) 1 Each Patch.td24 1 Patch TP DAILY Lactulose 20 Gm/30 Ml Solution 20 Gm PO DAILY Oxycontin (Oxycodone HCl) 20 Mg Tab.er.12h 20 Mg PO BID Vitamin E 200 Unit Capsule 400 Unit PO DAILY Vitamin D3 (Cholecalciferol (Vitamin D3)) 2,000 Unit Capsule 2,000 Unit PO DAILY Zofran (Ondansetron Hcl) 8 Mg Tablet 8 Mg PO BID PRN Nadolol 40 Mg Tablet 1 Tab PO DAILY Furosemide 40 Mg Tablet 1 Tab PO DAILY Vitals/I & O Vital Sign - Last 24 Hours 12/07/18 12/07/18 12/07/18 12/07/18 12:14 14:14 15:00 19:42 Temp 98.3 98.4 98.3 98.4 Pulse 84 82 Resp 12 19 B/P (MAP) 110/56 (74) 92/57 (69) Pulse Ox 98 98 99 98 O2 Delivery Room Air Room Air Room Air O2 Flow Rate 2.0 12/07/18 12/07/18 12/07/18 12/07/18 20:03 20:31 22:59 23:14 Temp 98.1 98.1 Pulse 76 Resp 20 B/P (MAP) 108/52 (70) Pulse Ox 96 O2 Delivery Room Air Room Air Room Air Room Air 3/1012/08/18 12/08/18 12/08/18 00:31 03:30 05:40 06:40 Temp 98.1 98.1 Pulse 77 Resp 20 18 B/P (MAP) 94/49 (64) Pulse Ox 94 94 O2 Delivery Room Air Room Air Room Air Room Air 12/08/18 12/08/18 12/08/18 07:20 07:49 08:46 Temp 97.3 97.3 Pulse 80 Resp 20 18 B/P (MAP) 103/54 (70) Pulse Ox 97 97 O2 Delivery Room Air Room Air Room Air O2 Flow Rate 2.0 Intake and Output 12/07/18 12/07/18 12/08/18 14:59 22:59 06:59 Intake Total 850 ml 400 ml Output Total 400 ml Balance 450 ml 400 ml Nutrition Consultation Dietary Evaluation: Recommendations by RD: Increase Calorie Intake Comments: Continue w/cardiac diet, obtained pt dinner order and communicated w/dietary Expected Outcomes/Goals: PO intake to meet >75% est needs Malnutrition Findings: Body Fat Depletion (Non Severe: Mild Depletion Weight Status: Appropriate STEPHON RAMOS III DO Dec 08, 2018 11:02
--- NOTE | 2018-12-08 12:44 | PDOC ---
Provider Note Provider Note Vascular surgery progress note. Patient doing well status post distal bypass graft Patient is ambulating without difficulty. Discharge in rabia. ZENY REDMAN MD Dec 08, 2018 12:44
[2018-12-08 15:00] VITALS: BP 87/51
[2018-12-08 19:37] VITALS: BP 111/59
[2018-12-08 23:07] VITALS: BP 130/58
[2018-12-09] MEDS: oxyCODONE IR 5 MG TABLET PO PRN ×2 (00:02→06:52)
[2018-12-09 02:08] VITALS: BP 113/47
[2018-12-09 07:00] VITALS: BP 105/52
[2018-12-09] MEDS: PANTOPRAZOLE 40 MG TABLET.DR. PO SCH (07:45)
[2018-12-09] MEDS: ELECTROLYTE (NON-ICU) PROTOCOL MC SCH (09:00)
[2018-12-09] MEDS: SPIRONOLACTONE 25 MG TABLET PO SCH (09:54)
[2018-12-09] MEDS: FUROSEMIDE 40 MG TABLET. PO SCH (09:55)
[2018-12-09] MEDS: CLOPIDOGREL BISULFATE 75 MG TABLET PO SCH (09:55)
[2018-12-09] MEDS: oxyCODONE ER 10 MG TAB.ER.12H PO SCH (09:55)
[2018-12-09] MEDS: VITAMIN E 200 UNIT CAPSULE. PO SCH (09:56)
[2018-12-09] MEDS: ENOXAPARIN 40 MG/0.4 ML SYRINGE. SQ SCH (09:56)
[2018-12-09] MEDS: NICOTINE 14MG PATCH. TD SCH (09:57)
[2018-12-09] MEDS: BACITRACIN TOPICAL OINT 14GM TUBE. TP SCH (10:02)
--- NOTE | 2018-12-09 11:03 | PDOC ---
PROGRESS NOTES Chief Complaint Chief Complaint L leg pain s/p L femoral popliteal bypass Chronic pain issues History of Hepatitis C Reports history of cirrhosis History of Present Illness History of Present Illness Ms. Restrepo is a 63 yo female presenting with L leg pain s/p L femoral popliteal bypass and chronic pain issues with past medical history of cirrhosis. Pt was seen and examined today while she was resting in bed NAD, reports good pain control No further complaints, was very happy with the news that she was cleared to D/C home with home health tomorrow Vitals Vitals Vital Signs Date Time Temp Pulse Resp B/P (MAP) Pulse Ox O2 Delivery O2 Flow Rate FiO2 12/09/18 09:55 Room Air 12/09/18 07:00 98.4 76 18 105/52 (69) 96 98.4 12/08/18 19:16 2.0 Physical Exam General: Alert, Oriented X3, Cooperative, No acute distress Heart: Regular rate, No murmurs Lungs: Clear Abdomen: Normal bowel sounds, Soft, No tenderness, No masses Extremities: No cyanosis, No edema, Other (incisions are clean, dry, and intact. She has a palpable bypass graft pulse) Skin: No rashes, No significant lesion Comment Review of Relevant I have reviewed the following items jeff (where applicable) has been applied. Medications Current Medications Ondansetron HCl (Zofran) 4 mg PRN Q6HRS PRN IV NAUSEA/VOMITING; Start 12/02/18 at 07:00; Stop 12/03/18 at 06:59; Status DC Fentanyl Citrate (Fentanyl 2ml Vial) 25 mcg PRN Q5MIN PRN IV MILD PAIN; Start 12/02/18 at 07:00; Stop 12/02/18 at 18:41; Status DC Fentanyl Citrate (Fentanyl 2ml Vial) 50 mcg PRN Q5MIN PRN IV MODERATE TO SEVERE PAIN Last administered on 12/02/18at 13:50; Start 12/02/18 at 07:00; Stop at 18:41; Status DC Morphine Sulfate (Morphine Sulfate) 1 mg PRN Q10MIN PRN IV SEVERE PAIN Last administered on 12/02/18at 14:12; Start 12/02/18 at 07:00; Stop 12/02/18 at 18:41; Status DC Ringer's Solution 1,000 ml @ 30 mls/hr Q24H IV Last administered on 12/02/18at 08:40; Start 12/02/18 at 07:00; Stop 12/02/18 at 18:41; Status DC Lidocaine HCl (Xylocaine-Mpf 1% 2ml Vial) 2 ml PRN 1X PRN ID PRIOR TO IV START ; Start 12/02/18 at 07:00; Stop 12/03/18 at 06:59; Status DC Hydromorphone HCl (Dilaudid) 0.5 mg PRN Q10MIN PRN IV SEV PAIN, Second choice Last administered on 12/02/18at 16:34; Start 12/02/18 at 07:00; Stop 12/02/18 at 18: 41; Status DC Prochlorperazine Edisylate (Compazine) 5 mg PACU PRN PRN IV NAUSEA, MRX1 Last administered on 12/02/18at 15:47; Start 12/02/18 at 07:00; Stop 12/03/18 at 06:59; Status DC Heparin Sodium (Porcine) 5000 unit/Sodium Chloride 505 ml @ 505 mls/hr 1X ONCE IRR Last administered on 12/02/18at 10:31; Start 12/02/18 at 06:00; Stop 12/02 at 07:00; Status DC Cefazolin Sodium 1 gm/Sodium Chloride 500 ml @ 500 mls/hr 1X ONCE IRR Last administered on 12/02/18at 10:30; Start 12/02/18 at 06:00; Stop 12/02/18 at 07:00; Status DC Cefazolin Sodium/ Dextrose 50 ml @ 100 mls/hr 1X PREOP PRN IV PRIOR TO PROCEDURE Last administered on 12/02/18at 10:02; Start 12/02/18 at 06:00; Stop 12/02 at 18:00; Status DC Iohexol (Omnipaque 300 Mg/ml) 100 ml STK-MED ONCE .ROUTE ; Start 12/02/18 at 09: 03; Stop 12/02/18 at 09:04; Status DC Thrombin 20,000 unit STK-MED ONCE TP ; Start 12/02/18 at 09:04; Stop 12/02/18 at 09:05; Status DC Gelatin (Gelfoam Size 12-7mm) 1 each STK-MED ONCE .ROUTE ; Start 12/02/18 at 09: 05; Stop 12/02/18 at 09:06; Status DC Cellulose (Surgicel Hemostat 4x8) 1 each STK-MED ONCE .ROUTE ; Start 12/02/18 at 09:05; Stop 12/02/18 at 09:06; Status DC Clopidogrel Bisulfate (Plavix) 75 mg DAILYWBKFT PO Last administered on 09:55; Start 12/03/18 at 08:00 Furosemide (Lasix) 40 mg DAILY PO Last administered on 12/09/18 09:55; Start 12/02/18 at 11:00 Vitamin E 400 unit DAILY PO Last administered on 12/09/18 09:56; Start at 11:00 Non-Formulary Medication (Ipratropium/ Albuterol Sulfate (Combivent Respimat Inhal)) 1 inh QID IH ; Start 12/02/18 at 13:00; Status UNV Non-Formulary Medication (Nadolol ) 1 tab DAILY PO ; Start 12/03/18 at 09:00; Status UNV Nicotine (Nicoderm Cq 14mg) 1 patch DAILY TD Last administered on 12/09/18 09: 57; Start 12/02/18 at 11:00 Pantoprazole Sodium (Protonix) 40 mg DAILYAC PO Last administered on 12/09/18 07:45; Start 12/02/18 at 11:30 Non-Formulary Medication (Ondansetron Hcl (Zofran)) 8 mg BID PRN PO NAUSEA/ VOMITING; Start 12/02/18 at 09:15; Status UNV Oxycodone HCl (Roxicodone) 10 mg PRN Q6HRS PRN PO BREAKTHROUGH PAIN Last administered on 12/09/18 06:52; Start 12/02/18 at 10:00 Oxycodone HCl (OxyCONTIN) 20 mg Q12HR PO ; Start 12/02/18 at 10:00; Stop 12/02/18 at 13:38; Status DC Spironolactone (Aldactone) 25 mg DAILY PO Last administered on 12/08/18at 08:47 ; Start 12/02/18 at 11:00 Fentanyl Citrate (Fentanyl 5ml Vial) 250 mcg STK-MED ONCE .ROUTE ; Start at 09:19; Stop 12/02/18 at 09:20; Status DC Midazolam HCl (Versed) 2 mg STK-MED ONCE .ROUTE ; Start 12/02/18 at 09:19; Stop 12/02/18 at 09:20; Status DC Rocuronium [place] (Zemuron) 50 mg STK-MED ONCE .ROUTE ; Start 12/02/18 at 09:19 ; Stop 12/02/18 at 09:20; Status DC Info (Non-Icu Electrolyte Protocol) 1 ea DAILY MC ; Start 12/03/18 at 09:00 Naloxone HCl (Narcan) 0.1 mg PRN Q2MIN PRN IV ADMIN; Start 12/02/18 at 09:15 Enoxaparin Sodium (Lovenox 40mg Syringe) 40 mg Q24H SQ Last administered on 08/19at 09:56; Start 12/03/18 at 09:00 Sodium Chloride (Normal Saline Flush) 3 ml QSHIFT PRN IV AFTER MEDS AND BLOOD DRAWS; Start 12/02/18 at 09:15 Sodium Chloride 1,000 ml @ 100 mls/hr Q10H IV Last administered on 12/03/18at 15 :11; Start 12/02/18 at 09:15; Stop 12/03/18 at 15:32; Status DC Morphine Sulfate (Morphine Sulfate) 2 mg PRN Q1HR PRN IV PAIN Last administered on 12/06/18at 00:47; Start 12/02/18 at 09:15 Docusate Sodium (Colace) 100 mg PRN BID PRN PO HARD STOOLS; Start 12/02/18 at 09 :15 Ondansetron HCl (Zofran) 4 mg PRN Q6HRS PRN IV NAUESA, 1ST CHOICE; Start at 09:15 Prochlorperazine Edisylate (Compazine) 5 mg PRN Q6HRS PRN IV N/V, 2nd Choice, MR X1; Start 12/02/18 at 09:15 Cefazolin Sodium 1 gm/Dextrose 50 ml @ 100 mls/hr Q6H IV Last administered on 12/03/18at 04:49; Start 12/02/18 at 16:00; Stop 12/03/18 at 04:29; Status DC Hydralazine HCl (Apresoline Inj) 5 mg PRN Q4HRS PRN IVP ELEVATED BP, 2ND CHOICE ; Start 12/02/18 at 09:15 Labetalol HCl (Normodyne Iv Push) 10 mg PRN Q2HR PRN IVP HYPERTENSION, 1ST CHOICE; Start 12/02/18 at 09:15 Albuterol/ Ipratropium (Duoneb) 3 ml RTQID NEB Last administered on 12/03/18at 07 :48; Start 12/02/18 at 12:00; Stop 12/03/18 at 17:11; Status DC Metoprolol Tartrate (Lopressor) 50 mg BID PO Last administered on 12/05/18at 21: 14; Start 12/02/18 at 10:00; Stop 12/07/18 at 11:43; Status DC Heparin Sodium (Porcine) (Heparin Sodium) 10,000 unit STK-MED ONCE .ROUTE ; Start 12/02/18 at 10:13; Stop 12/02/18 at 10:14; Status DC Dexamethasone Sodium Phosphate (Decadron) 20 mg STK-MED ONCE .ROUTE ; Start 12/02 at 10:13; Stop 12/02/18 at 10:14; Status DC Ondansetron HCl (Zofran) 4 mg STK-MED ONCE .ROUTE ; Start 12/02/18 at 10:13; Stop 12/02/18 at 10:14; Status DC Propofol 20 ml @ As Directed STK-MED ONCE IV ; Start 12/02/18 at 10:13; Stop 12/02 at 10:14; Status DC Lidocaine HCl (Lidocaine Pf 2% Vial) 5 ml STK-MED ONCE .ROUTE ; Start 12/02/18 at 10:13; Stop 12/02/18 at 10:14; Status DC Cellulose (Surgicel Fibrillar 1x2) 1 each STK-MED ONCE .ROUTE ; Start 12/02/18 at 11:40; Stop 12/02/18 at 11:41; Status DC Cellulose (Surgicel Fibrillar 1x2) 1 each STK-MED ONCE SURGSITE Last administered on 12/02/18at 12:13; Start 12/02/18 at 12:13; Stop 12/02/18 at 12:14; Status DC Protamine Sulfate (Protamine) 50 mg STK-MED ONCE IV ; Start 12/02/18 at 13:03; Stop 12/02/18 at 13:04; Status DC Fentanyl Citrate (Fentanyl 2ml Vial) 100 mcg STK-MED ONCE .ROUTE ; Start at 13:39; Stop 12/02/18 at 18:41; Status DC Prochlorperazine Edisylate (Compazine) 10 mg STK-MED ONCE .ROUTE ; Start at 13:39; Stop 12/02/18 at 13:40; Status DC Clopidogrel Bisulfate (Plavix) 75 mg 1X ONCE PO Last administered on 12/02/18at 16:27; Start 12/02/18 at 13:45; Stop 12/02/18 at 13:47; Status DC Morphine Sulfate (Morphine Sulfate) 2 mg STK-MED ONCE .ROUTE ; Start 12/02/18 at 14:11; Stop 12/02/18 at 14:12; Status DC Hydromorphone HCl (Dilaudid) 2 mg STK-MED ONCE .ROUTE ; Start 12/02/18 at 14:26; Stop 12/02/18 at 18:41; Status DC Hydromorphone HCl (Dilaudid) 2 mg STK-MED ONCE .ROUTE ; Start 12/02/18 at 15:42; Stop 12/02/18 at 18:41; Status DC Tamsulosin HCl (Flomax) 0.4 mg DAILY PO Last administered on 12/04/18at 09:02; Start 12/03/18 at 17:00; Stop 12/07/18 at 09:53; Status DC Albuterol/ Ipratropium (Duoneb) 3 ml PRN QID PRN NEB COUGH; Start 12/03/18 at 17 :15 Lactulose (Lactulose) 20 gm PRN DAILY PRN PO CONSTIPATION Last administered on 12/03/18at 21:00; Start 12/03/18 at 20:45 Oxycodone HCl (OxyCONTIN) 20 mg Q12HR PO Last administered on 12/09/18at 09:55; Start 12/06/18 at 10:00 Bacitracin 1 michelle DAILY TP Last administered on 12/09/18at 10:02; Start 12/06/18 at 12:30 Active Scripts Active Clopidogrel (Clopidogrel Bisulfate) 75 Mg Tablet 75 Mg PO DAILYWBKFT 90 Days Combivent Respimat Inhal (Ipratropium/Albuterol Sulfate) 4 Gm Aer.w.adap 1 Inh IH QID Reported Oxycodone Hcl 5 Mg Capsule 10 Mg PO PRN Q6HRS PRN Spironolactone 25 Mg Tablet 1 Tab PO DAILY Omeprazole 40 Mg Capsule.dr 1 Cap PO DAILY NICODERM CQ 14mg (Nicotine) 1 Each Patch.td24 1 Patch TP DAILY Lactulose 20 Gm/30 Ml Solution 20 Gm PO DAILY Oxycontin (Oxycodone HCl) 20 Mg Tab.er.12h 20 Mg PO BID Vitamin E 200 Unit Capsule 400 Unit PO DAILY Vitamin D3 (Cholecalciferol (Vitamin D3)) 2,000 Unit Capsule 2,000 Unit PO DAILY Zofran (Ondansetron Hcl) 8 Mg Tablet 8 Mg PO BID PRN Nadolol 40 Mg Tablet 1 Tab PO DAILY Furosemide 40 Mg Tablet 1 Tab PO DAILY Vitals/I & O Vital Sign - Last 24 Hours 12/08/18 12/08/18 12/08/18 12/08/18 11:58 12:46 15:00 18:12 Temp 97.5 97.5 Pulse 86 Resp 20 B/P (MAP) 87/51 (63) Pulse Ox 94 94 97 97 O2 Delivery Room Air Room Air Room Air Room Air O2 Flow Rate 2.0 2.0 2.0 12/08/18 12/08/18 12/08/18 12/08/18 19:16 19:37 19:55 20:29 Temp 98.1 98.1 Pulse 89 Resp 16 20 B/P (MAP) 111/59 (76) Pulse Ox 97 98 O2 Delivery Room Air Room Air Room Air O2 Flow Rate 2.0 12/08/18 12/09/18 12/09/18 12/09/18 23:07 00:02 00:29 01:02 Temp 98.2 98.2 Pulse 86 Resp 16 20 18 18 B/P (MAP) 130/58 (82) Pulse Ox 96 O2 Delivery Room Air Room Air 12/09/18 12/09/18 12/09/18 12/09/18 02:08 06:52 07:00 07:35 Temp 98.4 98.4 98.4 98.4 Pulse 84 76 Resp 18 18 B/P (MAP) 113/47 (69) 105/52 (69) Pulse Ox 97 96 O2 Delivery Room Air Room Air Room Air Room Air 12/09/18 12/09/18 07:56 09:55 O2 Delivery Room Air Room Air Intake and Output 12/08/18 12/08/18 12/09/18 14:59 22:59 06:59 Intake Total 380 ml 400 ml Balance 380 ml 400 ml Nutrition Consultation Dietary Evaluation: Recommendations by RD: Increase Calorie Intake Comments: Continue w/cardiac diet, obtained pt dinner order and communicated w/dietary Expected Outcomes/Goals: PO intake to meet >75% est needs Malnutrition Findings: Body Fat Depletion (Non Severe: Mild Depletion Weight Status: Appropriate JERE VALLES MD Dec 09, 2018 11:03
[2018-12-09 11:18] VITALS: BP 107/54
--- NOTE | 2018-12-09 11:24 | PDOC ---
PROGRESS NOTES Subjective Subjective Pt c/o some mild incisional pain but improving She denies any other significant c/o denies any pain / paresthesias / weakness left foot / toes s/p left LE bypass by Dr Umanzor Objective Objective Vital Signs Date Time Temp Pulse Resp B/P (MAP) Pulse Ox O2 Delivery O2 Flow Rate FiO2 12/09/18 11:18 98.2 73 18 107/54 (71) 98 Room Air 98.2 12/08/18 19:16 2.0 Intake and Output 12/09/18 07:00 Intake Total 780 ml Balance 780 ml Intake Oral 780 ml # Voids 8 Physical Exam Physical Exam incisions c/d/i no hematoma no infection left ankle with mild edema -- devyn for post-revascularization strong signals left ankle foot warm with normal motor and sensation Assessment Assessment doing well s/p LE bypass good signals, wounds look good Home today follow up with Dr Umanzor as scheduled [place] and Plavix Rx on the chart Comment Review of Relevant I have reviewed the following items jeff (where applicable) has been applied. Medications Current Medications Ondansetron HCl (Zofran) 4 mg PRN Q6HRS PRN IV NAUSEA/VOMITING; Start 12/02/18 at 07:00; Stop 12/03/18 at 06:59; Status DC Fentanyl Citrate (Fentanyl 2ml Vial) 25 mcg PRN Q5MIN PRN IV MILD PAIN; Start 12/02/18 at 07:00; Stop 12/02/18 at 18:41; Status DC Fentanyl Citrate (Fentanyl 2ml Vial) 50 mcg PRN Q5MIN PRN IV MODERATE TO SEVERE PAIN Last administered on 12/02/18at 13:50; Start 12/02/18 at 07:00; Stop at 18:41; Status DC Morphine Sulfate (Morphine Sulfate) 1 mg PRN Q10MIN PRN IV SEVERE PAIN Last administered on 12/02/18at 14:12; Start 12/02/18 at 07:00; Stop 12/02/18 at 18:41; Status DC Ringer's Solution 1,000 ml @ 30 mls/hr Q24H IV Last administered on 12/02/18at 08:40; Start 12/02/18 at 07:00; Stop 12/02/18 at 18:41; Status DC Lidocaine HCl (Xylocaine-Mpf 1% 2ml Vial) 2 ml PRN 1X PRN ID PRIOR TO IV START ; Start 12/02/18 at 07:00; Stop 12/03/18 at 06:59; Status DC Hydromorphone HCl (Dilaudid) 0.5 mg PRN Q10MIN PRN IV SEV PAIN, Second choice Last administered on 12/02/18at 16:34; Start 12/02/18 at 07:00; Stop 12/02/18 at 18: 41; Status DC Prochlorperazine Edisylate (Compazine) 5 mg PACU PRN PRN IV NAUSEA, MRX1 Last administered on 12/02/18at 15:47; Start 12/02/18 at 07:00; Stop 12/03/18 at 06:59; Status DC Heparin Sodium (Porcine) 5000 unit/Sodium Chloride 505 ml @ 505 mls/hr 1X ONCE IRR Last administered on 12/02/18at 10:31; Start 12/02/18 at 06:00; Stop 12/02 at 07:00; Status DC Cefazolin Sodium 1 gm/Sodium Chloride 500 ml @ 500 mls/hr 1X ONCE IRR Last administered on 12/02/18at 10:30; Start 12/02/18 at 06:00; Stop 12/02/18 at 07:00; Status DC Cefazolin Sodium/ Dextrose 50 ml @ 100 mls/hr 1X PREOP PRN IV PRIOR TO PROCEDURE Last administered on 12/02/18at 10:02; Start 12/02/18 at 06:00; Stop 12/02 at 18:00; Status DC Iohexol (Omnipaque 300 Mg/ml) 100 ml STK-MED ONCE .ROUTE ; Start 12/02/18 at 09: 03; Stop 12/02/18 at 09:04; Status DC Thrombin 20,000 unit STK-MED ONCE TP ; Start 12/02/18 at 09:04; Stop 12/02/18 at 09:05; Status DC Gelatin (Gelfoam Size 12-7mm) 1 each STK-MED ONCE .ROUTE ; Start 12/02/18 at 09: 05; Stop 12/02/18 at 09:06; Status DC Cellulose (Surgicel Hemostat 4x8) 1 each STK-MED ONCE .ROUTE ; Start 12/02/18 at 09:05; Stop 12/02/18 at 09:06; Status DC Clopidogrel Bisulfate (Plavix) 75 mg DAILYWBKFT PO Last administered on 09:55; Start 12/03/18 at 08:00 Furosemide (Lasix) 40 mg DAILY PO Last administered on 12/09/18 09:55; Start 12/02/18 at 11:00 Vitamin E 400 unit DAILY PO Last administered on 12/09/18 09:56; Start at 11:00 Non-Formulary Medication (Ipratropium/ Albuterol Sulfate (Combivent Respimat Inhal)) 1 inh QID IH ; Start 12/02/18 at 13:00; Status UNV Non-Formulary Medication (Nadolol ) 1 tab DAILY PO ; Start 12/03/18 at 09:00; Status UNV Nicotine (Nicoderm Cq 14mg) 1 patch DAILY TD Last administered on 12/09/18 09: 57; Start 12/02/18 at 11:00 Pantoprazole Sodium (Protonix) 40 mg DAILYAC PO Last administered on 12/09/18 07:45; Start 12/02/18 at 11:30 Non-Formulary Medication (Ondansetron Hcl (Zofran)) 8 mg BID PRN PO NAUSEA/ VOMITING; Start 12/02/18 at 09:15; Status UNV Oxycodone HCl (Roxicodone) 10 mg PRN Q6HRS PRN PO BREAKTHROUGH PAIN Last administered on 12/09/18 06:52; Start 12/02/18 at 10:00 Oxycodone HCl (OxyCONTIN) 20 mg Q12HR PO ; Start 12/02/18 at 10:00; Stop 12/02/18 at 13:38; Status DC Spironolactone (Aldactone) 25 mg DAILY PO Last administered on 12/08/18 08:47 ; Start 12/02/18 at 11:00 Fentanyl Citrate (Fentanyl 5ml Vial) 250 mcg STK-MED ONCE .ROUTE ; Start at 09:19; Stop 12/02/18 at 09:20; Status DC Midazolam HCl (Versed) 2 mg STK-MED ONCE .ROUTE ; Start 12/02/18 at 09:19; Stop 12/02/18 at 09:20; Status DC Rocuronium [place] (Zemuron) 50 mg STK-MED ONCE .ROUTE ; Start 12/02/18 at 09:19 ; Stop 12/02/18 at 09:20; Status DC Info (Non-Icu Electrolyte Protocol) 1 ea DAILY MC ; Start 12/03/18 at 09:00 Naloxone HCl (Narcan) 0.1 mg PRN Q2MIN PRN IV ADMIN; Start 12/02/18 at 09:15 Enoxaparin Sodium (Lovenox 40mg Syringe) 40 mg Q24H SQ Last administered on 08/19at 09:56; Start 12/03/18 at 09:00 Sodium Chloride (Normal Saline Flush) 3 ml QSHIFT PRN IV AFTER MEDS AND BLOOD DRAWS; Start 12/02/18 at 09:15 Sodium Chloride 1,000 ml @ 100 mls/hr Q10H IV Last administered on 12/03/18at 15 :11; Start 12/02/18 at 09:15; Stop 12/03/18 at 15:32; Status DC Morphine Sulfate (Morphine Sulfate) 2 mg PRN Q1HR PRN IV PAIN Last administered on 12/06/18at 00:47; Start 12/02/18 at 09:15 Docusate Sodium (Colace) 100 mg PRN BID PRN PO HARD STOOLS; Start 12/02/18 at 09 :15 Ondansetron HCl (Zofran) 4 mg PRN Q6HRS PRN IV NAUESA, 1ST CHOICE; Start at 09:15 Prochlorperazine Edisylate (Compazine) 5 mg PRN Q6HRS PRN IV N/V, 2nd Choice, MR X1; Start 12/02/18 at 09:15 Cefazolin Sodium 1 gm/Dextrose 50 ml @ 100 mls/hr Q6H IV Last administered on 12/03/18at 04:49; Start 12/02/18 at 16:00; Stop 12/03/18 at 04:29; Status DC Hydralazine HCl (Apresoline Inj) 5 mg PRN Q4HRS PRN IVP ELEVATED BP, 2ND CHOICE ; Start 12/02/18 at 09:15 Labetalol HCl (Normodyne Iv Push) 10 mg PRN Q2HR PRN IVP HYPERTENSION, 1ST CHOICE; Start 12/02/18 at 09:15 Albuterol/ Ipratropium (Duoneb) 3 ml RTQID NEB Last administered on 12/03/18at 07 :48; Start 12/02/18 at 12:00; Stop 12/03/18 at 17:11; Status DC Metoprolol Tartrate (Lopressor) 50 mg BID PO Last administered on 12/05/18at 21: 14; Start 12/02/18 at 10:00; Stop 12/07/18 at 11:43; Status DC Heparin Sodium (Porcine) (Heparin Sodium) 10,000 unit STK-MED ONCE .ROUTE ; Start 12/02/18 at 10:13; Stop 12/02/18 at 10:14; Status DC Dexamethasone Sodium Phosphate (Decadron) 20 mg STK-MED ONCE .ROUTE ; Start 12/02 at 10:13; Stop 12/02/18 at 10:14; Status DC Ondansetron HCl (Zofran) 4 mg STK-MED ONCE .ROUTE ; Start 12/02/18 at 10:13; Stop 12/02/18 at 10:14; Status DC Propofol 20 ml @ As Directed STK-MED ONCE IV ; Start 12/02/18 at 10:13; Stop 12/02 at 10:14; Status DC Lidocaine HCl (Lidocaine Pf 2% Vial) 5 ml STK-MED ONCE .ROUTE ; Start 12/02/18 at 10:13; Stop 12/02/18 at 10:14; Status DC Cellulose (Surgicel Fibrillar 1x2) 1 each STK-MED ONCE .ROUTE ; Start 12/02/18 at 11:40; Stop 12/02/18 at 11:41; Status DC Cellulose (Surgicel Fibrillar 1x2) 1 each STK-MED ONCE SURGSITE Last administered on 12/02/18at 12:13; Start 12/02/18 at 12:13; Stop 12/02/18 at 12:14; Status DC Protamine Sulfate (Protamine) 50 mg STK-MED ONCE IV ; Start 12/02/18 at 13:03; Stop 12/02/18 at 13:04; Status DC Fentanyl Citrate (Fentanyl 2ml Vial) 100 mcg STK-MED ONCE .ROUTE ; Start at 13:39; Stop 12/02/18 at 18:41; Status DC Prochlorperazine Edisylate (Compazine) 10 mg STK-MED ONCE .ROUTE ; Start at 13:39; Stop 12/02/18 at 13:40; Status DC Clopidogrel Bisulfate (Plavix) 75 mg 1X ONCE PO Last administered on 12/02/18at 16:27; Start 12/02/18 at 13:45; Stop 12/02/18 at 13:47; Status DC Morphine Sulfate (Morphine Sulfate) 2 mg STK-MED ONCE .ROUTE ; Start 12/02/18 at 14:11; Stop 12/02/18 at 14:12; Status DC Hydromorphone HCl (Dilaudid) 2 mg STK-MED ONCE .ROUTE ; Start 12/02/18 at 14:26; Stop 12/02/18 at 18:41; Status DC Hydromorphone HCl (Dilaudid) 2 mg STK-MED ONCE .ROUTE ; Start 12/02/18 at 15:42; Stop 12/02/18 at 18:41; Status DC Tamsulosin HCl (Flomax) 0.4 mg DAILY PO Last administered on 12/04/18at 09:02; Start 12/03/18 at 17:00; Stop 12/07/18 at 09:53; Status DC Albuterol/ Ipratropium (Duoneb) 3 ml PRN QID PRN NEB COUGH; Start 12/03/18 at 17 :15 Lactulose (Lactulose) 20 gm PRN DAILY PRN PO CONSTIPATION Last administered on 12/03/18at 21:00; Start 12/03/18 at 20:45 Oxycodone HCl (OxyCONTIN) 20 mg Q12HR PO Last administered on 12/09/18at 09:55; Start 12/06/18 at 10:00 Bacitracin 1 michelle DAILY TP Last administered on 12/09/18at 10:02; Start 12/06/18 at 12:30 Active Scripts Active Clopidogrel (Clopidogrel Bisulfate) 75 Mg Tablet 75 Mg PO DAILYWBKFT 90 Days Combivent Respimat Inhal (Ipratropium/Albuterol Sulfate) 4 Gm Aer.w.adap 1 Inh IH QID Reported Oxycodone Hcl 5 Mg Capsule 10 Mg PO PRN Q6HRS PRN Spironolactone 25 Mg Tablet 1 Tab PO DAILY Omeprazole 40 Mg Capsule.dr 1 Cap PO DAILY NICODERM CQ 14mg (Nicotine) 1 Each Patch.td24 1 Patch TP DAILY Lactulose 20 Gm/30 Ml Solution 20 Gm PO DAILY Oxycontin (Oxycodone HCl) 20 Mg Tab.er.12h 20 Mg PO BID Vitamin E 200 Unit Capsule 400 Unit PO DAILY Vitamin D3 (Cholecalciferol (Vitamin D3)) 2,000 Unit Capsule 2,000 Unit PO DAILY Zofran (Ondansetron Hcl) 8 Mg Tablet 8 Mg PO BID PRN Nadolol 40 Mg Tablet 1 Tab PO DAILY Furosemide 40 Mg Tablet 1 Tab PO DAILY Vitals/I & O Vital Sign - Last 24 Hours 12/08/18 12/08/18 12/08/18 12/08/18 11:58 12:46 15:00 18:12 Temp 97.5 97.5 Pulse 86 Resp 20 B/P (MAP) 87/51 (63) Pulse Ox 94 94 97 97 O2 Delivery Room Air Room Air Room Air Room Air O2 Flow Rate 2.0 2.0 2.0 12/08/18 12/08/18 12/08/18 12/08/18 19:16 19:37 19:55 20:29 Temp 98.1 98.1 Pulse 89 Resp 16 20 B/P (MAP) 111/59 (76) Pulse Ox 97 98 O2 Delivery Room Air Room Air Room Air O2 Flow Rate 2.0 12/08/18 12/09/18 12/09/18 12/09/18 23:07 00:02 00:29 01:02 Temp 98.2 98.2 Pulse 86 Resp 16 20 18 18 B/P (MAP) 130/58 (82) Pulse Ox 96 O2 Delivery Room Air Room Air 12/09/18 12/09/18 12/09/18 12/09/18 02:08 06:52 07:00 07:35 Temp 98.4 98.4 98.4 98.4 Pulse 84 76 Resp 18 18 B/P (MAP) 113/47 (69) 105/52 (69) Pulse Ox 97 96 O2 Delivery Room Air Room Air Room Air Room Air 12/09/18 12/09/18 12/09/18 07:56 09:55 11:18 Temp 98.2 98.2 Pulse 73 Resp 18 B/P (MAP) 107/54 (71) Pulse Ox 98 O2 Delivery Room Air Room Air Room Air Intake and Output 12/08/18 12/08/18 12/09/18 15:00 23:00 07:00 Intake Total 380 ml 400 ml Balance 380 ml 400 ml LASHAWN CHANDLER MD Dec 09, 2018 11:24
--- NOTE | 2018-12-09 11:34 | PDOC3 ---
Discharge Summary Date of Admission: Dec 02, 2018 Date of Discharge: Dec 09, 2018 Follow-Up: 3-5 days Admitting Diagnosis comment: DISCHARGE DX Chief Complaint L leg pain s/p L femoral popliteal bypass Chronic pain issues History of Hepatitis C Reports history of cirrhosis TOBACCO ABUSE HX History of Present Illness History of Present Illness Ms. Restrepo is a 63 yo female presenting with L leg pain s/p L femoral popliteal bypass and chronic pain issues with past medical history of cirrhosis. Pt was seen and examined today while she was resting in bed NAD, reports good pain control No further complaints, was very happy with the news that she was cleared to D/C home with home health TODAY Vitals Vitals Vital Signs Date Time Temp Pulse Resp B/P (MAP) Pulse Ox O2 Delivery O2 Flow Rate FiO2 12/09/18 09:55 Room Air 12/09/18 07:00 98.4 76 18 105/52 (69) 96 98.4 12/08/18 19:16 2.0 Physical Exam General: Alert, Oriented X3, Cooperative, No acute distress Heart: Regular rate, No murmurs Lungs: Clear Abdomen: Normal bowel sounds, Soft, No tenderness, No masses Extremities: No cyanosis, No edema, Other (incisions are clean, dry, and intact. She has a palpable bypass graft pulse) Skin: No rashes, No significant lesion Brief Hospital Course Ms. Restrepo is a 63 old [sex] who presented with [ PVD SEVERE] CONDITION AT DISCHARGE: Improved Discharge Medications Current Medications Ondansetron HCl (Zofran) 4 mg PRN Q6HRS PRN IV NAUSEA/VOMITING; Start 12/02/18 at 07:00; Stop 12/03/18 at 06:59; Status DC Fentanyl Citrate (Fentanyl 2ml Vial) 25 mcg PRN Q5MIN PRN IV MILD PAIN; Start 12/02/18 at 07:00; Stop 12/02/18 at 18:41; Status DC Fentanyl Citrate (Fentanyl 2ml Vial) 50 mcg PRN Q5MIN PRN IV MODERATE TO SEVERE PAIN Last administered on 12/02/18at 13:50; Start 12/02/18 at 07:00; Stop at 18:41; Status DC Morphine Sulfate (Morphine Sulfate) 1 mg PRN Q10MIN PRN IV SEVERE PAIN Last administered on 12/02/18 14:12; Start 12/02/18 at 07:00; Stop 12/02/18 at 18:41; Status DC Ringer's Solution 1,000 ml @ 30 mls/hr Q24H IV Last administered on 12/02/18at 08:40; Start 12/02/18 at 07:00; Stop 12/02/18 at 18:41; Status DC Lidocaine HCl (Xylocaine-Mpf 1% 2ml Vial) 2 ml PRN 1X PRN ID PRIOR TO IV START ; Start 12/02/18 at 07:00; Stop 12/03/18 at 06:59; Status DC Hydromorphone HCl (Dilaudid) 0.5 mg PRN Q10MIN PRN IV SEV PAIN, Second choice Last administered on 12/02/18at 16:34; Start 12/02/18 at 07:00; Stop 12/02/18 at 18: 41; Status DC Prochlorperazine Edisylate (Compazine) 5 mg PACU PRN PRN IV NAUSEA, MRX1 Last administered on 12/02/18at 15:47; Start 12/02/18 at 07:00; Stop 12/03/18 at 06:59; Status DC Heparin Sodium (Porcine) 5000 unit/Sodium Chloride 505 ml @ 505 mls/hr 1X ONCE IRR Last administered on 12/02/18at 10:31; Start 12/02/18 at 06:00; Stop 12/02 at 07:00; Status DC Cefazolin Sodium 1 gm/Sodium Chloride 500 ml @ 500 mls/hr 1X ONCE IRR Last administered on 12/02/18at 10:30; Start 12/02/18 at 06:00; Stop 12/02/18 at 07:00; Status DC Cefazolin Sodium/ Dextrose 50 ml @ 100 mls/hr 1X PREOP PRN IV PRIOR TO PROCEDURE Last administered on 12/02/18at 10:02; Start 12/02/18 at 06:00; Stop 12/02 at 18:00; Status DC Iohexol (Omnipaque 300 Mg/ml) 100 ml STK-MED ONCE .ROUTE ; Start 12/02/18 at 09: 03; Stop 12/02/18 at 09:04; Status DC Thrombin 20,000 unit STK-MED ONCE TP ; Start 12/02/18 at 09:04; Stop 12/02/18 at 09:05; Status DC Gelatin (Gelfoam Size 12-7mm) 1 each STK-MED ONCE .ROUTE ; Start 12/02/18 at 09: 05; Stop 12/02/18 at 09:06; Status DC Cellulose (Surgicel Hemostat 4x8) 1 each STK-MED ONCE .ROUTE ; Start 12/02/18 at 09:05; Stop 12/02/18 at 09:06; Status DC Clopidogrel Bisulfate (Plavix) 75 mg DAILYWBKFT PO Last administered on at 09:55; Start 12/03/18 at 08:00 Furosemide (Lasix) 40 mg DAILY PO Last administered on 12/09/18at 09:55; Start 12/02/18 at 11:00 Vitamin E 400 unit DAILY PO Last administered on 12/09/18at 09:56; Start at 11:00 Non-Formulary Medication (Ipratropium/ Albuterol Sulfate (Combivent Respimat Inhal)) 1 inh QID IH ; Start 12/02/18 at 13:00; Status UNV Non-Formulary Medication (Nadolol ) 1 tab DAILY PO ; Start 12/03/18 at 09:00; Status UNV Nicotine (Nicoderm Cq 14mg) 1 patch DAILY TD Last administered on 12/09/18 09: 57; Start 12/02/18 at 11:00 Pantoprazole Sodium (Protonix) 40 mg DAILYAC PO Last administered on 12/09/18at 07:45; Start 12/02/18 at 11:30 Non-Formulary Medication (Ondansetron Hcl (Zofran)) 8 mg BID PRN PO NAUSEA/ VOMITING; Start 12/02/18 at 09:15; Status UNV Oxycodone HCl (Roxicodone) 10 mg PRN Q6HRS PRN PO BREAKTHROUGH PAIN Last administered on 12/09/18at 06:52; Start 12/02/18 at 10:00 Oxycodone HCl (OxyCONTIN) 20 mg Q12HR PO ; Start 12/02/18 at 10:00; Stop 12/02/18 at 13:38; Status DC Spironolactone (Aldactone) 25 mg DAILY PO Last administered on 12/08/18at 08:47 ; Start 12/02/18 at 11:00 Fentanyl Citrate (Fentanyl 5ml Vial) 250 mcg STK-MED ONCE .ROUTE ; Start at 09:19; Stop 12/02/18 at 09:20; Status DC Midazolam HCl (Versed) 2 mg STK-MED ONCE .ROUTE ; Start 12/02/18 at 09:19; Stop 12/02/18 at 09:20; Status DC Rocuronium [place] (Zemuron) 50 mg STK-MED ONCE .ROUTE ; Start 12/02/18 at 09:19 ; Stop 12/02/18 at 09:20; Status DC Info (Non-Icu Electrolyte Protocol) 1 ea DAILY MC ; Start 12/03/18 at 09:00 Naloxone HCl (Narcan) 0.1 mg PRN Q2MIN PRN IV ADMIN; Start 12/02/18 at 09:15 Enoxaparin Sodium (Lovenox 40mg Syringe) 40 mg Q24H SQ Last administered on 08/19at 09:56; Start 12/03/18 at 09:00 Sodium Chloride (Normal Saline Flush) 3 ml QSHIFT PRN IV AFTER MEDS AND BLOOD DRAWS; Start 12/02/18 at 09:15 Sodium Chloride 1,000 ml @ 100 mls/hr Q10H IV Last administered on 12/03/18at 15 :11; Start 12/02/18 at 09:15; Stop 12/03/18 at 15:32; Status DC Morphine Sulfate (Morphine Sulfate) 2 mg PRN Q1HR PRN IV PAIN Last administered on 12/06/18at 00:47; Start 12/02/18 at 09:15 Docusate Sodium (Colace) 100 mg PRN BID PRN PO HARD STOOLS; Start 12/02/18 at 09 :15 Ondansetron HCl (Zofran) 4 mg PRN Q6HRS PRN IV NAUESA, 1ST CHOICE; Start at 09:15 Prochlorperazine Edisylate (Compazine) 5 mg PRN Q6HRS PRN IV N/V, 2nd Choice, MR X1; Start 12/02/18 at 09:15 Cefazolin Sodium 1 gm/Dextrose 50 ml @ 100 mls/hr Q6H IV Last administered on 12/03/18at 04:49; Start 12/02/18 at 16:00; Stop 12/03/18 at 04:29; Status DC Hydralazine HCl (Apresoline Inj) 5 mg PRN Q4HRS PRN IVP ELEVATED BP, 2ND CHOICE ; Start 12/02/18 at 09:15 Labetalol HCl (Normodyne Iv Push) 10 mg PRN Q2HR PRN IVP HYPERTENSION, 1ST CHOICE; Start 12/02/18 at 09:15 Albuterol/ Ipratropium (Duoneb) 3 ml RTQID NEB Last administered on 12/03/18at 07 :48; Start 12/02/18 at 12:00; Stop 12/03/18 at 17:11; Status DC Metoprolol Tartrate (Lopressor) 50 mg BID PO Last administered on 12/05/18at 21: 14; Start 12/02/18 at 10:00; Stop 12/07/18 at 11:43; Status DC Heparin Sodium (Porcine) (Heparin Sodium) 10,000 unit STK-MED ONCE .ROUTE ; Start 12/02/18 at 10:13; Stop 12/02/18 at 10:14; Status DC Dexamethasone Sodium Phosphate (Decadron) 20 mg STK-MED ONCE .ROUTE ; Start 12/02 at 10:13; Stop 12/02/18 at 10:14; Status DC Ondansetron HCl (Zofran) 4 mg STK-MED ONCE .ROUTE ; Start 12/02/18 at 10:13; Stop 12/02/18 at 10:14; Status DC Propofol 20 ml @ As Directed STK-MED ONCE IV ; Start 12/02/18 at 10:13; Stop 12/02 at 10:14; Status DC Lidocaine HCl (Lidocaine Pf 2% Vial) 5 ml STK-MED ONCE .ROUTE ; Start 12/02/18 at 10:13; Stop 12/02/18 at 10:14; Status DC Cellulose (Surgicel Fibrillar 1x2) 1 each STK-MED ONCE .ROUTE ; Start 12/02/18 at 11:40; Stop 12/02/18 at 11:41; Status DC Cellulose (Surgicel Fibrillar 1x2) 1 each STK-MED ONCE SURGSITE Last administered on 12/02/18at 12:13; Start 12/02/18 at 12:13; Stop 12/02/18 at 12:14; Status DC Protamine Sulfate (Protamine) 50 mg STK-MED ONCE IV ; Start 12/02/18 at 13:03; Stop 12/02/18 at 13:04; Status DC Fentanyl Citrate (Fentanyl 2ml Vial) 100 mcg STK-MED ONCE .ROUTE ; Start at 13:39; Stop 12/02/18 at 18:41; Status DC Prochlorperazine Edisylate (Compazine) 10 mg STK-MED ONCE .ROUTE ; Start at 13:39; Stop 12/02/18 at 13:40; Status DC Clopidogrel Bisulfate (Plavix) 75 mg 1X ONCE PO Last administered on 12/02/18at 16:27; Start 12/02/18 at 13:45; Stop 12/02/18 at 13:47; Status DC Morphine Sulfate (Morphine Sulfate) 2 mg STK-MED ONCE .ROUTE ; Start 12/02/18 at 14:11; Stop 12/02/18 at 14:12; Status DC Hydromorphone HCl (Dilaudid) 2 mg STK-MED ONCE .ROUTE ; Start 12/02/18 at 14:26; Stop 12/02/18 at 18:41; Status DC Hydromorphone HCl (Dilaudid) 2 mg STK-MED ONCE .ROUTE ; Start 12/02/18 at 15:42; Stop 12/02/18 at 18:41; Status DC Tamsulosin HCl (Flomax) 0.4 mg DAILY PO Last administered on 12/04/18at 09:02; Start 12/03/18 at 17:00; Stop 12/07/18 at 09:53; Status DC Albuterol/ Ipratropium (Duoneb) 3 ml PRN QID PRN NEB COUGH; Start 12/03/18 at 17 :15 Lactulose (Lactulose) 20 gm PRN DAILY PRN PO CONSTIPATION Last administered on 12/03/18at 21:00; Start 12/03/18 at 20:45 Oxycodone HCl (OxyCONTIN) 20 mg Q12HR PO Last administered on 12/09/18at 09:55; Start 12/06/18 at 10:00 Bacitracin 1 michelle DAILY TP Last administered on 12/09/18at 10:02; Start 12/06/18 at 12:30 Active Scripts Active Clopidogrel (Clopidogrel Bisulfate) 75 Mg Tablet 75 Mg PO DAILYWBKFT 90 Days Combivent Respimat Inhal (Ipratropium/Albuterol Sulfate) 4 Gm Aer.w.adap 1 Inh IH QID Reported Oxycodone Hcl 5 Mg Capsule 10 Mg PO PRN Q6HRS PRN Spironolactone 25 Mg Tablet 1 Tab PO DAILY Omeprazole 40 Mg Capsule.dr 1 Cap PO DAILY NICODERM CQ 14mg (Nicotine) 1 Each Patch.td24 1 Patch TP DAILY Lactulose 20 Gm/30 Ml Solution 20 Gm PO DAILY Oxycontin (Oxycodone HCl) 20 Mg Tab.er.12h 20 Mg PO BID Vitamin E 200 Unit Capsule 400 Unit PO DAILY Vitamin D3 (Cholecalciferol (Vitamin D3)) 2,000 Unit Capsule 2,000 Unit PO DAILY Zofran (Ondansetron Hcl) 8 Mg Tablet 8 Mg PO BID PRN Nadolol 40 Mg Tablet 1 Tab PO DAILY Furosemide 40 Mg Tablet 1 Tab PO DAILY Vital Signs Vital Signs Date Time Temp Pulse Resp B/P (MAP) Pulse Ox O2 Delivery O2 Flow Rate FiO2 12/09/18 11:18 98.2 73 18 107/54 (71) 98 Room Air 98.2 12/08/18 19:16 2.0 Allergies Allergies Coded Allergies Type Severity Reaction Last Updated Verified NSAIDS (Non-Steroidal Anti-Inflamma Allergy Severe Anaphylaxis 12/02/18 Yes aspirin Allergy Severe Anaphylaxis 12/02/18 Yes levofloxacin Adverse Reaction Intermediate 12/02/18 Yes Disposition/Orders: D/C to Home w/ HH Patient Instructions D/C PLANNING 34 MIN JERE VALLES MD Dec 09, 2018 11:34
[2018-12-09] MEDS ORDERED: DOCU-109 PO (11:36)
--- NOTE | 2018-12-09 11:37 | SNU/HH DC ---
DISCHARGE WITH HOME HEALTH DISCHARGE INFORMATION: Condition on Discharge: Stable CODE STATUS: Code Status: Full HOME HEALTH: Face to Face: I certify this patient is under my care and that I, or a nurse practitioner or physician's assistant community director working with me, had a face to face encounter that meets the physician face to face encounter requirements with this patient on []. Medical Complications: COPD, Other (PVD) Physical Therapy For: Evalulation/Treatment Occupational Therapy For: Evaluation/Treatment Home Health Aide For: Self-care [employer] ATTENDANT For: Community Resources Pt Meets Homebound Status: Unsteady balance w/ amb, POST DISCHARGE ORDERS: Activity Instructions for Disc: Activity as tolerated Weight Bearing Status after Di: As tolerated Bathing Instructions: No Tub Bath until see DIET AFTER DISCHARGE: Cardiac Wound/Incision Care: No wound care needed CHECKS AFTER DISCHARGE: Checks after discharge: Check blood press - daily, Check your Temp as needed FOLLOW-UP: Follow Up With: December 23 at 8:[address] Umanzor TREATMENT/EQUIPMENT ORDERS: Adaptive Equipment Issued: Front wheeled walker, Walker Discharge Respiratory Equipmen: Oxygen CERTIFICATION STATEMENT: Certification Statement: Certification Statement: Based on the above finding, I certify that this patient is confined to the home and needs intermittent [facility] care, physical therapy and/or speech therapy, or continues to need occupational therapy.~ This patient is under my care, and I have initiated the establishment of the plan of care.~ This patient will be followed by myself or a community physician who will periodically review the plan of care. Home Meds Active Scripts Docusate Sodium (COLACE) 100 Mg Capsule, 100 MG PO PRN BID PRN for HARD STOOLS for 14 Days, #14 CAP Prov:JERE VALLES MD 12/09/18 Clopidogrel Bisulfate (CLOPIDOGREL) 75 Mg Tablet, 75 MG PO DAILYWBKFT for 90 Days, #90 TAB 1 Refill Prov:ENDER FLORES [employer]ROLE[employer] SAMPLER 06/11/18 Ipratropium/Albuterol Sulfate (COMBIVENT RESPIMAT INHAL) 4 Gm Aer.w.adap, 1 INH IH QID, #1 INHALER 1 Refill Prov:FABIO LAMA MD 11/24/17 Reported Medications Oxycodone Hcl (OXYCODONE HCL) 5 Mg Capsule, 10 MG PO PRN Q6HRS PRN for PAIN, TAB 0 Refills 11/28/18 Spironolactone (SPIRONOLACTONE) 25 Mg Tablet, 1 TAB PO DAILY for diuretic, #90 TAB 1 Refill 11/28/18 Omeprazole (OMEPRAZOLE) 40 Mg Capsule.dr, 1 CAP PO DAILY for gerd, #30 CAP 3 Refills 11/28/18 Nicotine (NICODERM CQ 14mg) 1 Each Patch.td24, 1 PATCH TP DAILY for smoking cessation, #14 PATCH 11/28/18 Lactulose (LACTULOSE) 20 Gm/30 Ml Solution, 20 GM PO DAILY for liver cirrhosis, MISC 11/28/18 Oxycodone Hcl (OXYCONTIN) 20 Mg Tab.er.12h, 20 MG PO BID for PAIN, TAB 11/28/18 Vitamin E (VITAMIN E) 200 Unit Capsule, 400 UNIT PO DAILY for supplement, CAP 11/28/18 Cholecalciferol (Vitamin D3) (VITAMIN D3) 2,000 Unit Capsule, 2000 UNIT PO DAILY , CAP 11/12/17 Ondansetron Hcl (ZOFRAN) 8 Mg Tablet, 8 MG PO BID PRN for NAUSEA/VOMITING, TAB 11/12/17 Nadolol (NADOLOL) 40 Mg Tablet, 1 TAB PO DAILY, #30 TAB 5 Refills 11/12/17 Furosemide (FUROSEMIDE) 40 Mg Tablet, 1 TAB PO DAILY, #30 TAB 5 Refills 11/12/17 JERE VALLES MD Dec 09, 2018 11:37
--- NOTE | 2018-12-09 11:57 | NUR ---
SS following up with discharge planning. Discharge orders received for home healthcare. Rachale from [facility] faxed clinicals and discharge orders to [facility], [phone]; fax [phone]. Order received for walker. Pt opted to pay nursing supervisor [employer] $20 for walker from hospital. Pt's spouse to transport from the hospital.
--- NOTE | 2018-12-09 12:45 | NUR ---
Pt discharged home with [facility] services, by w/c to hospital entrance accompanied by spouse. Pt purchased walker from hospital and paid $20.00 for it, receipt provided. Information and education regarding Dx and f/u information provided to Pt who verbalized understanding and had no further questions. No changes from previous assessment.
== END 2018-12-09 12:45 | disposition home health service (06) | DRG 253 ==
LOC: OPSVCIP 08:03 → 1 WEST ICU 16:08 → 2 NORTH 12-03 16:55
PROVIDERS: ADMIT Surgery; ATTEND Surgery
PROC: 041L09L Bypass Left Femoral Artery to Popliteal Artery with Autologous Venous Tissue, Open Approach (ICD-10-PCS; principal; 2018-12-02 09:30)
DX: T82.856A Stenosis of peripheral vascular stent, initial encounter (principal); F11.20 Opioid dependence, uncomplicated; I70.221 Atherosclerosis of native arteries of extremities with rest pain, right leg; E78.5 Hyperlipidemia, unspecified; F17.210 Nicotine dependence, cigarettes, uncomplicated; G89.29 Other chronic pain; I10 Essential (primary) hypertension; I25.10 Atherosclerotic heart disease of native coronary artery without angina pectoris; J44.9 Chronic obstructive pulmonary disease, unspecified; B19.20 Unspecified viral hepatitis C without hepatic coma; F32.9 Major depressive disorder, single episode, unspecified; F41.9 Anxiety disorder, unspecified; R33.9 Retention of urine, unspecified; K21.9 Gastro-esophageal reflux disease without esophagitis; K74.60 Unspecified cirrhosis of liver; L97.529 Non-pressure chronic ulcer of other part of left foot with unspecified severity; Y83.8 Other surgical procedures as the cause of abnormal reaction of the patient, or of later complication, without mention of misadventure at the time of the procedure; Y92.89 Other specified places as the place of occurrence of the external cause; Z82.49 Family history of ischemic heart disease and other diseases of the circulatory system; Z88.6 Allergy status to analgesic agent; Z79.899 Other long term (current) drug therapy; Z90.49 Acquired absence of other specified parts of digestive tract
CPT/HCPCS: 36415; 80048; 80053; 82565; 83735; 85025; 85049; 85610; 85730; 87641; 94640; 94760; A7015; J0690; J0696; J0780; J1100; J1170; J1644; J1650; J2001; J2250; J2270; J2405; J2704; J3010; J7030; J7040; J7120; J7620; Q9967; 97116; 97530; 97535